=== PATIENT | male | born 1970 | race Two or more races ===

== ENCOUNTER 2024-06-12 19:26 | Emergency (ER) | payer SELFPAY ==
--- NOTE | 2024-06-12 19:46 | XR_ITS ---
Examination: Foot, right, 3 views Technique: AP, oblique, lateral views foot, 3 views Date and time of exam: June 12, 2024 1948 hrs. Indications: Twisting injury to foot today, foot pain Findings: Acute fracture proximal fifth metatarsal, no significant displacement Impression: Acute fracture proximal fifth metatarsal
--- NOTE | 2024-06-12 19:47 | PD.EDLOWEX ---
Lower Extremity Injury RME/HPI General Chief Complaint: Extremity Injury, Lower Stated Complaint: Twisted Left Foot Time Seen by Provider: 06/12/24 19:44 Arrival date/time: 06/12/24 19:26 RME / HPI RME / HPI Narrative: 53-year-old male patient was brought in for evaluation regarding left foot pain. Patient twisted his left foot while working, resulting to pain, described as dull ache, severity moderate. Location is mid foot. Patient is able to ambulate however he is limping. Denies any other complaints. Related Data Previous Rx's ?Medication ?Instructions ?Recorded ibuprofen 800 mg tablet 800 mg PO TID PRN pain #30 tabs 06/12/24 Allergies Allergy/AdvReac Type Severity Reaction Status Date / Time No Known Allergies Allergy Verified 11/10/20 23:15 Review of Systems Review of Systems Narrative Review of Systems: Review of system reviewed and within normal limits except mentioned in HPI ED Exam Narrative Physical exam: VITAL SIGNS: Reviewed. GENERAL APPEARANCE: Alert and interactive, follows commands, no acute distress, HEAD AND FACE: Non-traumatic. ENT: PERRL, pink conjunctivitis, eyelid no trauma, Mucous membrane moist. NECK: Supple, nontender, no nuchal rigidity. CHEST: No tenderness, no crepitus, no paradoxical movement, no retractions. LUNGS: Clear, well ventilated, symmetric, no rales, no wheezing, no ronchi, no stridor, good breath sounds bilaterally. HEART: Regular rate, regular rhythm, no murmur, no gallops. ABDOMEN: Soft, positive bowel sounds, nondistended, no guarding, nontender, no rebound, no masses, RECTAL: Deferred. GENITAL: Deferred. NEUROLOGICAL: Gross motor function intact sensory function intact, Appropriate for age. MUSCULOSKELETAL: low back nontender, full range of motion. EXTREMITIES: Left midfoot tenderness, mild swelling, no deformity no crepitus, full range of motion. SKIN: Color pink, dry, no rash, no lacerations, no abrasions, no contusions. LYMPHATICS: Deferred. Course Quality Measures none Orders Category Date Time Status XR foot comp LT min 3V Stat Exams 06/12/24 19:46 Completed Ibuprofen Tab [Motrin Tab] Med 06/12/24 19:46 Discontinued 800 mg PO X1 ONE Vital Signs Vital signs: Vital Signs Temperature 98.3 F 06/12/24 20:08 Pulse Rate 79 06/12/24 20:08 Respiratory Rate 18 06/12/24 20:08 Blood Pressure 150/90 H 06/12/24 20:08 Pulse Oximetry (%) 97 06/12/24 20:08 Oxygen Delivery Method Room Air 06/12/24 20:08 Extremity Injury, Lower MDM Narrative MDM Narrative:: 53-year-old male patient was brought in for evaluation regarding left foot pain. Patient twisted his left foot while working, resulting to pain, described as dull ache, severity moderate. Location is mid foot. Patient is able to ambulate however he is limping. Denies any other complaints. X-ray reports showed fifth metatarsal fracture nondisplaced Patient was placed on a short posterior leg splint. Distal neurovascular status in the post splinting. Patient data External records reviewed:: None Clinical information provided by:: patient Social determinants that could affect healthcare access:: none Patient has the following chronic illnesses:: None How is presenting disease/condition affected by chronic disease/condition?: exacerbated by Evaluation data The following diagnostics were reviewed and interpreted by me:: radiology exam(s) Lab and/or radiology exams considered but not ordered:: None Interpretation Summary: 5th metatarsal fracture Medications / Prescriptions Medications or Prescriptions considered but not ordered:: None Medication administrations:: Medication Administration History Discontinued Medications Ibuprofen (Ibuprofen Tab 400 Mg Tablet) 800 mg PO X1 ONE Stop: 06/12/24 19:47 Last Admin: 06/12/24 20:26 Dose: 800 mg Documented By: JOSEPH Be Consultations Consultation(s) initiated? (list below): No Diagnosis Extremity Injury, Lower Differential Diagnosis: fracture of toe and other (Fifth metatarsal fracture, foot sprain) Most likely diagnosis given after review of the tests above:: Fifth metatarsal fracture Admission Indicated Admission indicated?: not indicated Admission Request Was there a request for admission?: No Disposition Plan Disposition Plan: Discharge Discharge Attestation Discharge Attestation: The patient was given an opportunity to ask questions and understood the discharge instructions. Discharge instructions specifically effects, indications for sooner follow up or return to the emergency department, and the expected course of current diagnosis. Patient condition: Stable Discharge Plan Plan Patient Disposition: HOME (Self Care) Disposition Comment: stable Prescriptions/Referrals Prescriptions/Med Rec: New ibuprofen 800 mg tablet 800 mg PO TID PRN (Reason: pain) Qty: 30 0RF Referrals: Wander Cai MD [Primary Care Provider] - In 1 week Problem List Clinical Impression: Fracture of fifth metatarsal bone Patient/Caregiver Discharge Instructions Discharge Activity: activity as tolerated Education Materials: Fifth Metatarsal Fx Additional Instructions: Thank you for the opportunity for serving you today. You are stable for discharged . You are advised to: Follow-up with your PCP in 1 to 2 days and asked for referral to orthopedic surgeon Return to ED for worsening of symptoms Increase oral fluids Take medication as prescribed Do not remove your splint until seen by orthopedic surgeon Elevate your legs as needed Print Language: Bruneian Stand Alone Forms: Cherise Award Info., Patient Portal Info Letter PA/DIRECTOR PHYSICAL THERAPY Supervising Physician PA/DIRECTOR PHYSICAL THERAPY Supervising Physician: MD Roe
[2024-06-12 20:08] VITALS: BP 150/90; PULSE 79; RESP 18; TEMP 36.8; O2SAT 97
[2024-06-12] MEDS: IBUPROFEN TAB 400 MG TABLET 800 MG PO (20:26)
== END 2024-06-12 22:23 | disposition home or self-care (01) ==
PROVIDERS: Emergency Provider Emergency Medicine; PCP Family Medicine
DX: S92.352A Displaced fracture of fifth metatarsal bone, left foot, initial encounter for closed fracture (principal); X50.1XXA Overexertion from prolonged static or awkward postures, initial encounter
CPT/HCPCS: 73630; 99283; A9270

== ENCOUNTER 2024-07-27 19:11 | Emergency (ER) | payer BC, OTHER, SELFPAY ==
[2024-07-27 19:12] VITALS: BMI 37.6
[2024-07-27 20:09] VITALS: BP 163/78; PULSE 105; RESP 20; TEMP 37.1; O2SAT 95
--- NOTE | 2024-07-27 20:34 | XR_ITS ---
Examination: Duplex scan of the lower extremity, unilateral left Date and time of exam: July 27, 20242044 hours INDICATION: Onset left leg pain beginning 24 hours ago Technique: Duplex scan of the extremity veins using B-mode/grayscale imaging and Doppler spectral analysis and color flow Attention is directed to internal echogenicity, compression and augmentation involving these veins, color flow assessment, spectral analysis Findings: Major deep venous structures in the extremity demonstrate normal course and caliber. There is no evidence of deep vein thrombosis. Normal color flow and spectral analysis Impression: Negative for DVT..
[2024-07-27] MEDS: CYCLObenzaPRINE 5 MG TABLET PO (21:11)
[2024-07-27] MEDS: NAPROXEN 250 MG TABLET 500 MG PO (23:08)
--- NOTE | 2024-07-28 03:33 | EDNOTE_ITS ---
ED Back Injury Pain RME/HPI General Chief Complaint: Back Pain/Injury Stated Complaint: Left flank pain x 1 day Time Seen by Provider: 07/27/24 20:34 Arrival date/time: 07/27/24 19:11 54M with no significant PMH presents to ED with several days of L lower back pain that radiates down LLE. Patient denies fall/trauma, saddle paresthesia, bowel/bladder incontinence, dysuria/hematuria, and SOB. Limitations: no limitations Related Data Previous Rx's ?Medication ?Instructions ?Recorded ibuprofen 800 mg tablet 800 mg PO TID PRN pain #30 t abs 06/12/24 cyclobenzaprine 5 mg tablet 5 mg PO TID PRN muscle spa sm #30 07/27/24 tabs Allergies Allergy/AdvReac Type Severity Reaction Status Date / Time No Known Allergies Allergy Verified 11/10/20 23:15 Review of Systems Review of Systems Systems Reviewed: All systems reviewed, normal except as documented Constitutional Constitutional: Reports system reviewed and no additional complaints, except as documented, Denies fever(s) and Denies headache(s) ENT Ears, Nose, Mouth, and Throat: Denies disequilibrium and Denies headache(s) Cardiovascular Cardiovascular: Reports system reviewed and no additional complaints, except as documented, Denies chest pain and Denies dyspnea Respiratory Respiratory: Reports system reviewed and no additional complaints, except as documented, Denies cough and Denies dyspnea Gastrointestinal Gastrointestinal: Reports system reviewed and no additional complaints, except as documented, Denies abdominal pain, Denies nausea and Denies vomiting Musculoskeletal Musculoskeletal: Reports as per HPI, Reports back pain and Reports radiating pain into limb Neurologic Neurologic: Reports system reviewed and no additional complaints, except as documented, Denies confusion, Denies disequilibrium and Denies headache(s) Psychiatric Psychiatric: Denies confusion Past Medical History Social History SMOKING STATUS: Never smoker SUBSTANCE USE: does not use ED Exam General Limitations: Present no limitations General appearance: Present alert and in no apparent distress Head Head exam: Present atraumatic Eye Eye exam: Present normal appearance, PERRL and EOMI ENT ENT exam: Present normal exam, normal oropharynx and mucous membranes moist Neck Neck exam: Present normal inspection, full ROM and trachea midline Chest Chest inspection: Present normal inspection and symmetric chest wall rise Respiratory Respiratory exam: Present normal lung sounds bilaterally Cardiovascular Cardiovascular exam: Present regular rate, normal rhythm and normal heart sounds Abdominal Exam Abdominal exam: Present soft and normal bowel sounds Extremities Exam Extremities exam: Present normal inspection and full ROM Back Exam Back exam: Present normal inspection and full ROM Neurological Exam Neurological exam: Present alert, oriented X3 and CN II-XII intact Psychiatric Psychiatric exam: Present normal affect and normal mood Skin Skin exam: Present warm, dry, intact and normal color Course Quality Measures none Orders Category Date Time Status US venous doppler LE LT Stat Exams 07/27/24 20:34 Completed CYCLObenzaPRINE [Flexeril] Med 07/27/24 20:34 Discontinued 5 mg PO X1 ONE Naproxen [Naprosyn] Med 07/27/24 22:21 Discontinued 500 mg PO X1 ONE Vital Signs Vital signs: Vital Signs Temperature 98.7 F 07/27/24 20:09 Pulse Rate 105 H 07/27/24 20:09 Respiratory Rate 20 07/27/24 20:09 Blood Pressure 163/78 H 07/27/24 20:09 Pulse Oximetry (%) 95 07/27/24 20:09 Oxygen Delivery Method Room Air 07/27/24 20:09 O2 at 95% on RA and WNLs Back Pain / Injury MDM Narrative MDM Narrative:: 54M with no significant PMH presents to ED with several days of L lower back pain that radiates down LLE. Patient denies fall/trauma, saddle paresthesia, bowel/bladder incontinence, dysuria/hematuria, and SOB. Physical exam reveals no back tenderness. No gross LLE swelling. Patient is afebrile, calm, and alert. US no DVT. Likely sciatica. Muscle relaxer helped abit. Registered Nurses given. Patient data External records reviewed:: [facility] previous records Clinical information provided by:: patient Social determinants that could affect healthcare access:: none Patient has the following chronic illnesses:: none How is presenting disease/condition affected by chronic disease/condition?: no chronic disease Evaluation data The following diagnostics were reviewed and interpreted by me:: radiology exam(s) Lab and/or radiology exams considered but not ordered:: ordered Interpretation Summary: above Medications / Prescriptions Medications or Prescriptions considered but not ordered:: ordered Medication administrations:: Medication Administration History Discontinued Medications Cyclobenzaprine HCl (Cyclobenzaprine 5 Mg Tablet) 5 mg PO X1 ONE Stop: 07/27/24 20:35 Last Admin: 07/27/24 21:11 Dose: 5 mg Documented By: ENRRIQUE Naproxen (Naproxen 250 Mg Tablet) 500 mg PO X1 ONE Stop: 07/27/24 22:22 Last Admin: 07/27/24 23:08 Dose: 500 mg Documented By: ENRRIQUE above Consultations Consultation(s) initiated? (list below): No Diagnosis Differential diagnosis back pain/injury: lumbar radiculopathy, sciatica, strain of lumbar region, renal colic, pyelonephritis, thoracic back pain, AAA, discitis and other (DVT) Most likely diagnosis given after review of the tests above:: sciatica Admission Indicated Admission indicated?: not indicated Admission Request Was there a request for admission?: No Disposition Plan Disposition Plan: Discharge Discharge Attestation Discharge Attestation: The patient and all family members were given an opportunity to ask questions and understood the discharge instructions. Discharge instructions specifically effects, indications for sooner follow up or return to the emergency department, and the expected course of current diagnosis. Patient condition: Stable Discharge Plan Plan Patient Disposition: HOME (Self Care) Disposition Comment: Stable Prescriptions/Referrals Prescriptions/Med Rec: New cyclobenzaprine 5 mg tablet 5 mg PO TID PRN (Reason: muscle spasm) Qty: 30 0RF No Action ibuprofen 800 mg tablet 800 mg PO TID PRN (Reason: pain) Qty: 30 0RF Referrals: Wander Cai MD [Primary Care Provider] - In 1 week Problem List Clinical Impression: Sciatica Patient/Caregiver Discharge Instructions Education Materials: ED Sciatica Additional Instructions: Please follow-up with PCP within 24-48 hours and return immediately if symptoms worsen. If problem persists, recommend outpatient PT and/or MRI follow-up. In the meantime, rest, use ice/heat, and/or compression. NSAIDs tend to work better for this type of pain. Print Language: Paraguayan Stand Alone Forms: Patient Portal Info Letter WM/CELSO Supervising Physician WM/CELSO Supervising Physician: Dr. Perea
== END 2024-07-27 23:12 | disposition home or self-care (01) ==
PROVIDERS: Emergency Provider Emergency Medicine; PCP Family Medicine
DX: M54.42 Lumbago with sciatica, left side (principal)
CPT/HCPCS: 93971; 99284; A9270

== ENCOUNTER 2024-12-27 12:36 | Inpatient (IN) | payer OTHER, SELFPAY ==
--- NOTE | 2024-12-27 | XR_ITS ---
Examination: MRI brain without intravenous contrast. Date and time of exam: December 27, 2024, 1745 hrs. Indications: Dizziness weakness difficulty with gait beginning 2 days ago Technique: Multiple axial and sagittal images of the brain obtained. Siemens high-resolution 1.5 Stephanie short bore scanners utilized. Sagittal sections, T1-weighted, TR 500, TE 14, are performed. Axial sections proton-density and T2-weighted have been obtained. Inversion recovery axial images, TR 9, 260, TE 111, TI 2500. Diffusion weighted images, axial sections, TR 4800, TE 128, B value 1000 Axial sections, ADC map, TR 4800, TE 128 Findings: Enlargement of the sella turcica is not present. The optic chiasm and infundibular are not remarkable. Prepontine and interpeduncular cisterns are not enlarged. There is no localized enlargement of the medulla or angela. Fourth ventricle and cerebellar tonsils appear normal in position. No subacute area of hemorrhage density is seen. Mass in the cerebellopontine angle region is not evident. Globes symmetrical. Orbital musculature including medial lateral rectus muscles do not exhibit abnormality. Diffusion-weighted images demonstrate no focus of restricted diffusion. Increased white matter signal minimal Mass effect upon the ventricular system is not identified. Impression: Negative for acute hemorrhage mass effect or midline shift No acute infarct
[2024-12-27 12:54] VITALS: BP 122/89; PULSE 122; RESP 18; TEMP 36.9; O2SAT 93; BMI 28.7
--- NOTE | 2024-12-27 12:57 | EKG_ITS ---
[facility] Test Date: 2024-12-27 Pat Name: KEELY QUIÑONEZ Department: Room: - Gender: Male Clinical Business Analyst: : 1970 Requested By: Romain Moreno Order Number: [id number] Reading MD: Romain Moreno Measurements Intervals [place] Rate: 124 P: 6 IA: 156 QRS: -26 QRSD: 90 T: 31 QT: 330 QTc: 474 Interpretive Statements SINUS TACHYCARDIA LEFT VENTRICULAR HYPERTROPHY AND ST-T CHANGE [VOLTAGE CRITERIA PLUS ST/T ABNORMALITY] INFERIOR MYOCARDIAL INFARCTION , PROBABLY OLD [40+ ms Q WAVE AND/OR ST/T ABNORMALITY IN II/aVF] No previous ECG available for comparison /store/S0/[id number].pdf
--- NOTE | 2024-12-27 12:58 | XR_ITS ---
Examination: PA lateral chest 2 views TECHNIQUE: Upright PA lateral chest 2 views Date and time: December 27, 2024 1259 hours INDICATIONS: Weakness dizziness beginning 3 days ago. FINDINGS: Normal heart size. Lungs are clear. The osseous structures are intact IMPRESSION: No active disease.
--- NOTE | 2024-12-27 12:58 | PD.EDRME ---
Rapid Medical Screening Exam E Arrival date/time: 12/27/24 12:36 54-year-old male with no known medical history presents to the emergency room with a chief complaint of dizziness, lightheadedness, weakness x 2 days. Patient states he has been binge drinking alcohol for the last week stopped 4 days ago and since then has had the symptoms I have greeted and performed a focused initial assessment of this patient. A comprehensive ED assessment and evaluation of the patient, analysis of all test results, and completion of the medical decision making process will be conducted by additional ED providers. Chief Complaint: Weakness Time Seen by Provider: 12/27/24 12:52 Vital signs: Vital Signs Temperature 98.4 F 12/27/24 12:54 Pulse Rate 122 H 12/27/24 12:54 Respiratory Rate 18 12/27/24 12:54 Blood Pressure 122/89 H 12/27/24 12:54 Pulse Oximetry (%) 93 L 12/27/24 12:54 Oxygen Delivery Method Room Air 12/27/24 12:54 Vital signs reviewed by provider: Yes
[2024-12-27 13:29] LABS: Basophils # (Auto) 0.0 Thou/mm3 (0.0-0.2); Basophils % (Auto) 0 % (0-2.5); Eosinophils # (Auto) 0.0 Thou/mm3 (0.0-0.5); Eosinophils % (Auto) 0 % (0-10); Hematocrit 46.9 % (41.0-53.0); Hemoglobin 16.9 g/dL (13.5-16.0); Immature Granulocytes Auto 0.05 Thou/mm3 (0.00-0.00); Lymphocytes # (Auto) 1.0 Thou/mm3 (1.0-4.8); Lymphocytes % (Auto) 12 % (10-50); Mean Corpuscular HGB Conc 36.0 g/dl (31.0-37.0); Mean Corpuscular Hemoglobin 32.6 pg (25.0-35.0); Mean Corpuscular Volume 90 fL (80-100); Monocytes # (Auto) 0.7 Thou/mm3 (0.0-0.8); Monocytes % (Auto) 8 % (0-12); Neutrophils # (Auto) 6.5 Thou/mm3 (1.8-7.7); Neutrophils % (Auto) 78 % (37-80); Nucleated Red Blood Cell # 0.02 Thou/mm3 (0.00-0.00); Nucleated Red Blood Cell % 0 /100 WBC (0); Platelet Count 100 Thou/mm3 (140-440); RDW Standard Deviation 43.4 fL (35.1-43.9); Red Blood Count 5.19 Miln/mm3 (4.50-5.90); White Blood Count 8.3 Thou/mm3 (3.8-10.6)
[2024-12-27 13:48] LABS: B-Type Natriuretic Peptide 32 pg/mL (0-100)
[2024-12-27 13:51] LABS: Alanine Aminotransferase 142 U/L (10-49); Albumin, Serum 4.8 gm/dL (3.5-5.0); Albumin/Globulin Ratio 1.7 (1.2-2.2); Alcohol, Blood Medical < 3.0 mg/dL (0-10.0); Alkaline Phosphatase 130 U/L (46-116); Anion Gap 22 (7-16); Aspartate Amino Transferase 174 U/L (0-34); BUN/Creatinine Ratio 5 Ratio (12-20); Bilirubin,Total 1.9 mg/dL (0.3-1.2); Blood Urea Nitrogen 7 mg/dL (9-23); Calcium 10.8 mg/dL (8.3-10.6); Calcium (Corrected) 10.8 mg/dL (8.5-10.1); Carbon Dioxide 20.0 mMol/L (20.0-31.0); Chloride 90 mMol/L (98-107); Creatinine (Component) 1.4 mg/dL (0.6-1.3); Estimated Creatinine Clearance 66.7 mL/min (>60); Globulin 2.9 gm/dL (2.3-3.5); Glucose 160 mg/dL (74-106); Magnesium 1.8 mg/dL (1.6-2.6); Osmolality,Calculated 265 (275-295); Potassium 3.1 mMol/L (3.4-5.1); Sodium 132 mMol/L (136-145); Total Protein 7.7 gm/dL (5.7-8.2); Troponin I < 0.020 ng/mL (0.0-0.045); eGFR 59 See Note
[2024-12-27 14:45] LABS: INR 1.0 (0.9-1.3); Partial Thromboplastin Time 24.7 Seconds (22.0-36.0); Prothrombin Time 11.4 Seconds (9.0-12.2)
--- NOTE | 2024-12-27 14:46 | XR_ITS ---
Examination: CT brain head without contrast. 2-D sagittal coronal reconstructions Date and time of exam:December 27, 2024, 1501 hours INDICATIONS: Stroke alert, onset focal neurologic deficit today CTDI: vol (mGy):56.9 DLP: (mGycm):1180 Technique: Multiple CT axial sections of the brain have been obtained, 5 mm slice thickness. Contrast has not been administered. 2-D sagittal, coronal reconstructions have been obtained Low dose protocols were performed. One or more of the following dose reduction techniques were used; automated exposure control, adjustment of the mA and/or KV according to patient size, use of iterative reconstruction technique. Findings: No significant ventricular enlargement. Subtle low densities in the left cerebellar hemisphere axial image 34, which could represent early acute infarcts Intra-axial or extra-axial hemorrhage density is not seen. No mass effect or midline shift Basal cisterns are not remarkable. Fourth ventricle is midline. Cranial vault intact. Impression: Negative for acute hemorrhage, mass effect or midline shift Subtle low density areas in the left cerebellar hemisphere, axial image 34, which could represent early nonhemorrhagic infarcts, consider brain MRI MRA, stroke protocol, without contrast, follow-up
--- NOTE | 2024-12-27 14:46 | XR_ITS ---
Examination: CTA carotids with intravenous contrast CTA brain, head with intravenous contrast. 2-D sagittal, coronal reconstructions. 3-D reconstructions. Exam date and time: December 27, 2024, 1505 hours INDICATIONS: Stroke alert, onset focal neurologic deficit today CTDI: vol (mGy) 12.1 DLP: (mGycm) 537 Technique: Multiple CTA axial brain, head carotid images post intravenous contrast injection 75 cc, [id number]. 2-D sagittal, coronal reconstructions. 3-D reconstructions, 3-D post processing including vascular maximum intensity projection images. Low dose protocols were performed. One or more of the following dose reduction techniques were used; automated exposure control, adjustment of the mA and/or KV according to patient size, use of iterative reconstruction technique. Findings: No significant common carotid carotid bifurcation or internal carotid artery stenoses. Codominant vertebral arteries and neck with no critical stenoses. Intracranial vertebral arteries basilar artery posterior cerebral branches fill with no large vessel occlusions Juxtasellar supraclinoid portions internal carotid arteries, M1 segments middle cerebral arteries middle cerebral artery trifurcation vessels, anterior cerebral arteries fill with no large vessel occlusions IMPRESSION: No significant neck arterial stenoses No cerebral large vessel arterial occlusions or thrombus
--- NOTE | 2024-12-27 14:46 | XR_ITS ---
Examination: AP chest single view Technique one AP portable upright chest single view Date and time: December 27, 2024 1531 hours, comparison 12/27/2024 INDICATIONS: Stroke alert today. FINDINGS: Normal heart size. No aspiration pneumonia. Prominent osteopenia IMPRESSION: No aspiration pneumonia.
--- NOTE | 2024-12-27 14:46 | EKG_ITS ---
[facility] Test Date: 2024-12-27 Pat Name: KEELY QUIÑONEZ Department: Room: - Gender: Male Skating Carhop: : 1970 Requested By: Shannon Manzano Order Number: [id number] Reading MD: Shannon Manzano Measurements Intervals [place] Rate: 102 P: 20 ID: [id number] QRS: -15 QRSD: 94 T: 29 QT: 335 QTc: 437 Interpretive Statements SINUS TACHYCARDIA MODERATE ST DEPRESSION [0.05+ mV ST DEPRESSION] Compared to ECG 12/27/2024 12:57:33 Left ventricular hypertrophy no longer present Myocardial infarct finding no longer present ST (T wave) deviation still present /store/S0/[id number]/[id number]
--- NOTE | 2024-12-27 14:48 | PD.EDWEAK ---
ED Weakness RME/HPI General Chief complaint: Weakness Stated complaint: LIGHTHEADED/WEAK X2 DAYS, DIARRHEA X2 DAYS Time Seen by Provider: 12/27/24 12:52 Arrival date/time: 12/27/24 12:36 RME / HPI RME / HPI Narrative: 54-year-old male with no known medical history presents to the emergency room with a chief complaint of dizziness, lightheadedness, weakness x 2 days. Patient states he has been binge drinking alcohol for the last week stopped 4 days ago and since then has had the symptoms 2.47 PM 54-year-old male patient with significant history of chronic back pain currently taking on and off Percocet, was brought in by family for evaluation regarding dizziness, lightheadedness, and weakness. Patient is having symptoms of dizziness for the last 2 days however at 10:00 this morning patient is unable to ambulate due to severe dizziness, and leaning to the right side. Patient admits of having alcohol binge drinking, but stopped 4 days ago. On my initial evaluation, patient was noted to be unable to ambulate without assistance and tendency to lean to the right side with eyes closed. Patient denies any slurring of speech. Denies any head trauma or fall. Denies any fever denies any other complaints. Related Data Home Medications ?Medication ?Instructions ?Recorded ?Confirmed oxycodone-acetaminophen 10 mg-325 1 tab PO Q6H PRN pain 12/27/24 12/27/24 mg tablet Allergies Allergy/AdvReac Type Severity Reaction Status Date / Time No Known Allergies Allergy Verified 12/27/24 12:39 Review of Systems Review of Systems Narrative Review of Systems: Review of system reviewed and within normal limits except mentioned in HPI ED Exam Narrative Physical exam: VITAL SIGNS: Reviewed. GENERAL APPEARANCE: Alert and interactive, follows commands, no acute distress, HEAD AND FACE: Non-traumatic. ENT: PERRL, pink conjunctivitis, eyelid no trauma, Mucous membrane moist. NECK: Supple, nontender, no nuchal rigidity. CHEST: No tenderness, no crepitus, no paradoxical movement, no retractions. LUNGS: Clear, well ventilated, symmetric, no rales, no wheezing, no ronchi, no stridor, good breath sounds bilaterally. HEART: Regular rate, regular rhythm, no murmur, no gallops. ABDOMEN: Soft, positive bowel sounds, nondistended, no guarding, nontender, no rebound, no masses, RECTAL: Deferred. GENITAL: Deferred. NEUROLOGICAL: Gross motor function intact sensory function intact, Appropriate for age. MUSCULOSKELETAL: low back nontender, full range of motion. EXTREMITIES: Nontender, full range of motion. SKIN: Color pink, dry, no rash, no lacerations, no abrasions, no contusions. LYMPHATICS: Deferred. Course Quality Measures none Orders Category Date Time Status Bedside Blood Glucose NOW Care 12/27/24 14:46 Active Bedside COVID-19 Antigen Test NOW Care 12/27/24 16:44 Active COVID-19 Screening Questionnaire NOW Care 12/27/24 16:26 Active T[place]stone Polisher NOW Care 12/27/24 14:46 Active Continuous Pulse Oximetry NOW Care 12/27/24 14:46 Completed Decision to Admit X1 Care 12/27/24 16:26 Completed EKG (ED ONLY) *Do not use* NOW Care 12/27/24 12:57 Completed EKG (ED ONLY) *Do not use* NOW Care 12/27/24 14:46 Completed In and Out Catheter NEEDED Care 12/27/24 14:46 Active Insert IV NOW Care 12/27/24 14:46 Active NIH Stroke Scale now Care 12/27/24 14:46 Active NPO NOW Care 12/27/24 14:46 Active Nurse Swallow Screen x1 Care 12/27/24 14:46 Active Consult to Neurology / Tele-Neurology Routine Cons 12/27/24 14:[address] angio stroke protocol Stat Exams 12/27/24 14:[address] stroke protocol Stat Exams 12/27/24 14:46 Completed EKG (ED Only) Stat Exams 12/27/24 12:57 Draft EKG (ED Only) Stat Exams 12/27/24 14:46 Draft XR chest 1V portable Stat Exams 12/27/24 14:46 Completed XR chest 2V Stat Exams 12/27/24 12:58 Completed Alcohol, Blood Medical Stat Lab 12/27/24 13:20 Completed B-Type Natriuretic Peptide Stat Lab 12/27/24 13:20 Completed CBC Stat Lab 12/27/24 13:20 Completed Comprehensive Metabolic Panel Stat Lab 12/27/24 13:20 Completed Drug Screen,Urine Stat Lab 12/27/24 17:00 Completed Magnesium Stat Lab 12/27/24 13:20 Completed Partial Thromboplastin Time Stat Lab 12/27/24 13:20 Completed Prothrombin Time with INR Stat Lab 12/27/24 13:20 Completed Troponin I Stat Lab 12/27/24 13:20 Completed Urinalysis, C/S if Indicated Stat Lab 12/27/24 17:00 Completed Aspirin [Ecotrin] Med 12/27/24 15:22 Discontinued 81 mg PO X1 ONE Labetalol IV [Trandate IV] Med 12/27/24 14:46 Discontinued 10 mg IVP Q15M PRN Ondansetron Inj [Zofran Inj] Med 12/27/24 14:46 Active 4 mg IVP Q4HR PRN Potassium Chloride [K-Dur] Med 12/27/24 15:32 Discontinued 40 meq PO X1 ONE Oxygen Delivery NOW RT 12/27/24 14:46 Active Vital Signs Vital signs: Vital Signs Temperature 98.4 F 12/27/24 12:54 Pulse Rate 122 H 12/27/24 12:54 Respiratory Rate 18 12/27/24 12:54 Blood Pressure 122/89 H 12/27/24 12:54 Pulse Oximetry (%) 93 L 12/27/24 12:54 Oxygen Delivery Method Room Air 12/27/24 12:54 Weakness MDM Narrative MDM Narrative:: 2.47 PM 54-year-old male patient with significant history of chronic back pain currently taking on and off Percocet, was brought in by family for evaluation regarding dizziness, lightheadedness, and weakness. Patient is having symptoms of dizziness for the last 2 days however at 10:00 this morning patient is unable to ambulate due to severe dizziness, and leaning to the right side. Patient admits of having alcohol binge drinking, but stopped 4 days ago. On my initial evaluation, patient was noted to be unable to ambulate without assistance and tendency to lean to the right side with eyes closed. Patient denies any slurring of speech. Denies any head trauma or fall. Denies any fever denies any other complaints. Stroke alert was initiated at 2:47 PM. I spoke with teleneurologist, who told me that there is a small infarct noted on the left cerebellar hemisphere CTA head and neck came back unremarkable. Patient needs to be admitted for stroke workup recommendation aspirin 81 mg p.o. x 1 patient is not a candidate for thrombolytic therapy due to onset of symptoms more than 24 hours ago. Patient's LFTs and total bili was noted to be elevated due to alcohol abuse. Patient is not having any abdominal pain. Plan of care discussed with the patient who agrees to be admitted for further management. Spoke with hospitalist, who admitted the patient. Patient data External records reviewed:: None Clinical information provided by:: patient and family Social determinants that could affect healthcare access:: alcohol use Patient has the following chronic illnesses:: Alcohol abuse How is presenting disease/condition affected by chronic disease/condition?: exacerbated by Evaluation data The following diagnostics were reviewed and interpreted by me:: lab results, radiology exam(s) and EKG tracing(s) Lab and/or radiology exams considered but not ordered:: None Interpretation Summary: None Medications / Prescriptions Medications or Prescriptions considered but not ordered:: None Medication administrations:: Medication Administration History Acetaminophen (Acetaminophen 325 Mg Tablet) 650 mg PO Q6H PRN PRN Reason: Fever >101.5 Stop: 01/26/25 16:46 Acetaminophen (Acetaminophen 325 Mg Tablet) 650 mg PO Q6H PRN PRN Reason: PAIN SCALE 1-3 (mild Stop: 01/26/25 16:46 Atorvastatin Calcium (Atorvastatin Calcium 20 Mg Tablet) 40 mg PO HS [facility] Stop: 01/26/25 20:59 Last Admin: 12/27/24 21:06 Dose: 40 mg Documented By: IG Heparin Sodium (Porcine) (Heparin Sod Inj 5000 Unit/Ml Vial) 5,000 unit SC Q8HR [facility] Stop: 01/10/25 21:59 Last Admin: 12/27/24 21:06 Dose: 5,000 unit Documented By: IG Co-signed By: AM Lactated Ringer's (Lactated Ringers) 1,000 mls @ 75 mls/hr IV .[id number] [facility] Stop: 01/26/25 16:59 Last Admin: 12/27/24 17:16 Dose: 75 mls/hr Documented By: EF Labetalol HCl (Labetalol Inj 5 Mg/Ml Vial 20 Ml) 10 mg IVP Q15M PRN PRN Reason: HIGH BP Ondansetron HCl (Ondansetron Inj 2 Mg/Ml Inj 2 Ml) 4 mg IVP Q4HR PRN; Protocol PRN Reason: NAUSEA OR VOMITING Stop: 01/26/25 14:45 Discontinued Medications Aspirin (Aspirin Ec 81 Mg Tabec) 81 mg PO X1 ONE Stop: 12/27/24 15:23 Last Admin: 12/27/24 15:33 Dose: 81 mg Documented By: EF Atorvastatin Calcium (Atorvastatin Calcium 20 Mg Tablet) 80 mg PO HS [facility] Stop: 01/26/25 20:59 Labetalol HCl (Labetalol Inj 5 Mg/Ml Vial 20 Ml) 10 mg IVP Q15M PRN PRN Reason: HIGH BP Potassium Chloride (Potassium Chloride 20 Meq Tabcr) 40 meq PO X1 ONE Stop: 12/27/24 15:33 Last Admin: 12/27/24 15:43 Dose: 40 meq Documented By: EF Aspirin 81 mg p.o. Consultations Consultation(s) initiated? (list below): No Diagnosis Weakness Differential Diagnosis: anemia, dehydration and other Most likely diagnosis given after review of the tests above:: Strokelike symptoms Admission Indicated Admission indicated?: not indicated Admission Request Was there a request for admission?: Yes Admission Attestation Admission request attestation: Discussed case with Hospitalist service regarding admission. Discussed patients ED course, exam findings, labs, and radiology results. The Hospitalist [agrees, to accept the patient for admission. Disposition Plan Disposition Plan: Admit Discharge Plan Plan Patient Disposition: Admit Acute Care w/in Hospital Problem List Clinical Impression: Stroke-like symptom
--- NOTE | 2024-12-27 15:22 | PD.TNEURO ---
Tele Neuro Consultation Consultation Date 12/27/24 Most Recent Vital Signs Last Vital Signs Temp 98.4 F 12/27/24 12:54 Pulse 122 H 12/27/24 12:54 Resp 18 12/27/24 12:54 BP 122/89 H 12/27/24 12:54 Pulse Ox 93 L 12/27/24 12:54 O2 Del Method Room Air 12/27/24 12:54 Laboratory-Coagulation Panel PT 11.4 Seconds (9.0-12.2) 12/27/24 13:20 INR 1.0 (0.9-1.3) 12/27/24 13:20 APTT 24.7 Seconds (22.0-36.0) 12/27/24 13:20 Consultation Narrative [facility] Tele[facility] Consult [facility] Patient Name:???KEELY QUIÑONEZ Date of :???1970 Identification Number:??? Date of Service:???12/27/2024 14:49:42 Diagnosis:?I63.89 - Cerebrovascular accident (CVA) due to other mechanism ([facility]) Impression: ?54yo man w/PMH of back pain p/w dizziness, weakness on 12/27/24. He states he has had dizziness, unsteady gait and weakness for the last 2 days. He otherwise denies complaints or prior episodes. He is somewhat limited due to disorientation. NIHSS [address] Head shows a possible left cerebellar hypodensity. Pt is not a candidate for thrombolytics or thrombectomy due to being out of the 24 hour window. Presentation is concerning for acute-subacute ischemic stroke based on history and exam, MRI Brain advised. Other possibilities include infectious or metabolic encephalopathy. Plan listed below was recommended to the ED physician by phone. Our recommendations are outlined below. Recommendations: ? Stroke/Telemetry Floor ? Neuro Checks (Q4) ? Bedside Swallow Eval ? DVT Prophylaxis ? IV Fluids, Normal Saline ? Head of Bed 30 Degrees ? Euglycemia and Avoid Hyperthermia (PRN Acetaminophen) ? Initiate or continue Aspirin 81 MG daily ? Antihypertensives PRN if Blood pressure is greater than 220/120 or there is a concern for End organ damage/contraindications for permissive HTN. If blood pressure is greater than 220/120 give labetalol PO or IV or Vasotec IV with a goal of 15% reduction in BP during the first 24 hours. ?Routine MRI Brain without contrast to assess for stroke ?Routine CTA Head/Neck with contrast or MRA Head/Neck without contrast to assess vasculature ?TTE (if not recently done) ?Lipid Profile, A1C ?PT/OT, Speech/Swallow evaluation Sign Out: ? Discussed with Emergency Department Provider Advanced Imaging: Advanced Imaging Deferred because: Does not meet criteria due to being out of the 24-hour window for thrombectomy Metrics: Last Known Well: Unknown Dispatch Time: 12/27/2024 14:49:42 Arrival Time: 12/27/2024 12:36:00 Initial Response Time: 12/27/2024 14:52:31Symptoms: dizziness, weakness. Initial patient interaction: 12/27/2024 14:58:24 NIHSS Assessment Completed: 12/27/2024 15:06:04Patient is not a candidate for Thrombolytic. Thrombolytic Medical Decision: 12/27/2024 15:06:05Patient was not deemed candidate for Thrombolytic because of following reasons: LKW outside 4.[address] Head: I personally reviewed all the CT images that were available to me and it showed: left cerebellar hypodensity Primary Provider Notified of Diagnostic Impression and Management Plan on: 12/27/2024 15:21:15 History of Present Illness:Patient is a 54 year old Male. Patient was brought by private transportation with symptoms of dizziness, weakness. 54yo man w/PMH of back pain p/w dizziness, weakness on 12/27/24. He states he has had dizziness, unsteady gait and weakness for the last 2 days. He otherwise denies complaints or prior episodes. He is somewhat limited due to disorientation.. Past Medical History: Other PMH:? see hpi unable to obtain due to:?? Patient Is Confused Medications: No Anticoagulant use? No Antiplatelet use Reviewed EMR for current medications Allergies:? Reviewed Allergies Unable To Obtain Due To:?Patient Is Confused Social History: Unable To Obtain Due To Patient Status :?Patient Is Confused Family History: Family History Cannot Be Obtained Because:Patient Is Confused ROS :?ROS Cannot Be Obtained Because:? Patient Is Confused Past Surgical History: Past Surgical History Cannot Be Obtained Because: Patient Is Confused Examination: BP(122/67),?Pulse(112), 1A: Level of Consciousness - Alert; keenly responsive?+ 0 1B: Ask Month and Age - 1 Question Right?+ 1 1C: Blink Eyes & Squeeze Hands - Performs Both Tasks?+ 0 2: Test Horizontal Extraocular Movements - Normal?+ 0 3: Test Visual Schmidt - No Visual Loss?+ 0 4: Test Facial Palsy (Use Grimace if Obtunded) - Normal symmetry?+ 0 5A: Test Left Arm Motor Drift - No Drift for 10 Seconds?+ 0 5B: Test Right Arm Motor Drift - No Drift for 10 Seconds?+ 0 6A: Test Left Leg Motor Drift - No Drift for 5 Seconds?+ 0 6B: Test Right Leg Motor Drift - No Drift for 5 Seconds?+ 0 7: Test Limb Ataxia (FNF/Heel-Raymundo) - No Ataxia?+ 0 8: Test Sensation - Normal; No sensory loss?+ 0 9: Test Language/Aphasia - Normal; No aphasia?+ 0 10: Test Dysarthria - Normal?+ 0 11: Test Extinction/Inattention - No abnormality?+ 0 NIHSS Score:?1 Pre-Morbid Modified Javon Scale: 0 Points = No symptoms at all Spoke with :?ED This consult was conducted in real time using interactive audio and video technology. Patient was informed of the technology being used for this visit and agreed to proceed. Patient located in hospital and provider located at home/office setting. Patient is being evaluated for possible acute neurologic impairment and high probability of imminent or life-threatening deterioration. I spent total of 35 minutes providing care to this patient, including time for face to face visit via telemedicine, review of medical records, imaging studies and discussion of findings with providers, the patient and/or family. Dr Oscar Jj [facility] For Inpatient follow-up with [facility] physician please call [facility] at . As we are not an outpatient service for any post hospital discharge needs please contact the hospital for assistance. If you have any questions for the [facility] physicians or need to reconsult for clinical or diagnostic changes please contact us via [facility] at . Signature :Christina Jj
[2024-12-27 15:26] VITALS: PULSE 101; PULSE 102; RESP 18; O2SAT 95
[2024-12-27 15:29] VITALS: BP 124/89; PULSE 100; RESP 18; TEMP 36.8; O2SAT 98
[2024-12-27] MEDS: ASPIRIN EC 81 MG TABEC PO (15:33)
--- NOTE | 2024-12-27 16:49 | ECHO_ITS ---
Transthoracic Echo Report Ht (in): 70 Wt (lb): 200 Exam Location: Echo Lab Status: Emergency Consulting Intern: Rosa Sauceda Indications: Procedure Performed: BP: 119 / 90 HR: 98 Technical Quality: Technically difficult study MEASUREMENTS (Male / Female) Normal Values 2D ECHO LV Ejection Fraction MOD BP 39.0 % >= 55 % LV Cardiac Index MOD BP 2055.0 cm?/min?m? LV Ejection Fraction MOD 4C 38.8 % LV Cardiac Index MOD 4C 2027.5 cm?/min?m? LV Ejection Fraction 4C AL 39.4 % LV Cardiac Index 4C AL 2169.6 cm?/min?m? LV Ejection Fraction MOD 2C 35.6 % LV Cardiac Index MOD 2C 1766.0 cm?/min?m? LV Ejection Fraction 2C AL 34.2 % LV Cardiac Index 2C AL 1756.5 cm?/min?m? LA Volume Index 15.0 cm?/m? 16 - 28 cm?/m? M-MODE Aortic Root Diameter MM 3.6 cm LA Systolic Diameter MM 3.7 cm LA Ao Ratio MM 1.0 AV Cusp Separation MM 2.0 cm DOPPLER AV Peak Velocity 115.5 cm/s AV Peak Gradient 5.3 mmHg AV Mean Gradient 3.0 mmHg AV Velocity Time Integral 16.4 cm AI Peak Velocity 201.0 cm/s AI Peak Gradient 16.2 mmHg AI Pressure Half Time 605.0 ms LVOT Peak Velocity 102.5 cm/s LVOT Peak Gradient 4.2 mmHg LVOT Velocity Time Integral 14.2 cm MV Area PHT 6.1 cm? Mitral E Point Velocity 88.8 cm/s LV E' Lateral Velocity 8.8 cm/s Mitral E to LV E' Lateral Ratio 10.1 LV E' Septal Velocity 9.0 cm/s Mitral E to LV E' Septal Ratio 9.8 PV Peak Velocity 73.3 cm/s PV Peak Gradient 2.1 mmHg FINDINGS Left Ventricle Normal left ventricular size, wall thickness. Global left ventricular systolic function is mildly decreased. Unable to evaluate diastolic function. The ejection fraction is visually estimated at 40-45 %. Right Ventricle The right ventricle not well visualized. The right ventricular systolic function is normal. Left Atrium The left atrium is normal by two-dimensional, color flow and Doppler imaging with no structural abnormalities, no thrombus formation present. Right Atrium The right atrium is normal by two-dimensional imaging, color flow and Doppler imaging with no structural abnormalities, no thrombus formation present. Atrial Septum The interatrial septum appears normal with no evidence of a shunt. Aorta The aorta is normal by two-dimensional, color flow and Doppler interrogation. Mitral Valve The mitral valve is normal by two-dimensional, color flow and Doppler interrogation. There is no significant mitral valve regurgitation, stenosis or prolapse. Aortic Valve The aortic valve is trileaflet and normal by two-dimensional, color flow and Doppler interrogation. Mild aortic valve regurgitation. Tricuspid Valve The tricuspid valve is normal by two-dimensional, color flow and Doppler interrogation. There is trace tricuspid valve regurgitation. Pulmonic Valve The pulmonic valve is not well visualized. Trivial pulmonic valve regurgitation. Vessels Inferior vena cava not well visualized. Pericardium The pericardium is normal by two-dimensional imaging. There is no significant pericardial effusion. CONCLUSIONS Indication: CVA with bubble study. Suboptimal bubble study Normal LV size, wall thickness. Global left ventricular systolic function is mildly decreased. Unable to evaluate diastolic function. Estimated EF at 40-45 %. The RV not well visualized. The RV systolic function is normal. Trace TR. Trivial PI. IVC not well visualized. Jignesh Chambers (Electronically Signed) Final Date: 28 December 2024 11:05
--- NOTE | 2024-12-27 17:00 | PD.HHHP ---
Documentation for date of: 12/27/24 HPI - Hospitalist History of Present Illness History of present illness: Patient is a 54-year-old male with a medical history of chronic lower back pain on as needed Alexander and muscle relaxant, alcohol use, and obesity presents to [facility] emergency department on 12/27/2024 with chief complaint of dizziness and weakness. He reports he has had dizziness and unsteady gait which has worsened over the last 48 hours prompting him to come to the emergency room. He denies any difficulty speaking, no facial weakness or loss of sensation. He denies a previous history of similar symptoms. He denies changes in dizziness with head movements but does seem worse from sitting to rising position. He reports he does not take any medicines at home except for pain medicines for chronic back pain. He denies taking any aspirin or NSAIDs at home. He denies any recent falls. Patient lives in [place] with family. Patient works in the [employer] system but has been on leave secondary to work related injury. He denies a history of diabetes. Patient denies headache, vision changes, chest pain, shortness of breath, nausea/vomiting, abdominal pain, urinary symptoms, and no GI symptoms at this time. Social History: Denies tobacco use and illicit substances. Drinks 1 pint of vodka a day ( last drink 12/27/24) Surgical history: Denies any previous surgeries Family history: Noncontributory ED Course: Presenting vital signs: Afebrile, pulse 122, O2 sat 93% on room air, Pertinent laboratories: WBC 16.9, coagulation panel WNL, NA 132, K3.1, BUN 7, CR 1.4, GLU 160, AG 22, corrected calcium 10.8, AST 174, ALT 142, ALP 130, troponin within normal limits Head CT wo: Settable low-density areas in the left cerebral hemisphere, negative for acute hemorrhage, mass effect or midline shift. H & N CTA: No LVO or thrombus. Management: NIHSS Score of 1. Patient was seen by teleneurology who recommends admission for CVA rule out. Patient was given aspirin 81 mg p.o. x 1 and potassium chloride 40 mEq p.o. x 1. Hospitalist team consulted for admission. Review of Systems Review of Systems Systems Reviewed: All systems reviewed, normal except as documented Past Medical History Social History SMOKING STATUS: Never smoker SUBSTANCE USE: does not use Meds Home Medications and Allergies Home Medications ?Medication ?Instructions ?Recorded ?Confirmed ?Type oxycodone-acetaminophen 10 mg-325 1 tab PO Q6H PRN pain 12/27/24 12/27/24 History mg tablet Allergies Allergy/AdvReac Type Severity Reaction Status Date / Time No Known Allergies Allergy Verified 12/27/24 12:39 Exam Vital Signs Temp Pulse Resp BP Pulse Ox O2 Del Method 98.3 F 100 18 124/89 H 98 Room Air 12/27/24 15:29 12/27/24 15:29 12/27/24 15:29 12/27/24 15:29 12/27/24 15:29 12/27/24 15:29 Narrative Gen: A&O NAD HEENT: NCAT, EOMI, not icteric. External ears normal. No rhinorrhea. Moist mucous membranes. Neck: Supple, full range of motion, no observable masses, No meningeal sign. Lungs: No Respiratory distress. CV: RRR, Normal S1/S2, no edema. Abdomen: Soft, nondistended, No rebound tenderness. MSK: No joint swelling, no redness. Skin: No rashes, petechiae, lesions. Normal color per patient. Neuro: Normal Gait, Grossly intact. CN II-XII grossly intact Psych: Appropriate for situation. Results - Hospitalist Labs Diagrams: 12/27/24 13:20 12/27/24 13:20 Labs: Short CBC 12/27/24 Range/Units 13:20 WBC 8.3 (3.8-10.6) Thou/mm3 Hgb 16.9 H (13.5-16.0) g/dL Hct 46.9 (41.0-53.0) % Plt Count 100 L (140-440) Thou/mm3 BMP 12/27/24 13:20 Sodium 132 L Potassium 3.1 L Chloride 90 L Carbon Dioxide 20.0 BUN 7 L Creatinine 1.4 H Glucose 160 H Calcium 10.8 H Cardiac Enzymes 12/27/24 Range/Units 13:20 Troponin I < 0.020 (0.0-0.045) ng/mL Liver Function 12/27/24 Range/Units 13:20 Total Bilirubin 1.9 H (0.3-1.2) mg/dL AST 174 H (0-34) U/L ALT 142 H (10-49) U/L Alkaline Phosphatase 130 H (46-116) U/L Albumin 4.8 (3.5-5.0) gm/dL Assessment & Plan -Hospitalist Additional Assessment Patient is a 54-year-old male with a medical history of chronic lower back pain on as needed Alexander and muscle relaxant, alcohol use, and obesity presents to [facility] emergency department on 12/27/2024 with chief complaint of dizziness and weakness. Patient admitted for CVA rule out. #Dizziness #Stroke-like symptoms #CVA Rule Out - Presented with chief complaints of dizziness and weakness - Not a candidate for thrombolytics given length of symptoms - Admit to telemetry - Neurochecks every 4 hours - Swallow screen and physical therapy referral - DVT prophylaxis with heparin 5000 units subcutaneous every 8 hours - Head of the bed 30 degrees - Tylenol as needed to avoid hyperthermia - Consult in-house neurology, recommendations appreciated - Vascular risk factor screening: A1c, TSH, lipid panel, follow-up test to control vascular risk factors - Order echocardiogram with bubble study - Allow permissive hypertension with blood pressure up to 220/120 for the first 24 hours. Plan: CTA head and neck did not reveal any LVO or thrombus. Head CT without contrast revealed no acute hemorrhage, mass effect or midline shift but did show subtle low-density areas in the left cerebral hemisphere. Will start patient on aspirin 81 mg p.o. daily and atorvastatin 40 mg p.o. at bedtime. Consult in-house neurology, recommendations appreciated. Order MRI brain. # Transaminitis - On admission AST 174, ALT 142, ALP 130 - Most likely secondary to alcohol use - Plan: Avoid hepatotoxic agents and hepatically dose medications. Counseled patient on alcohol cessation. Continue to trend LFTs daily. # Alcohol use disorder - Patient has significant history of alcohol use - Plan: He reports his last drink was today 12/27/24. He denies being hospitalized for alcohol with drawl in the past. Low threshold to start CIWA if patient develops symptoms # Elevated anion gap - Plan: No history of diabetes and no acidosis noted on chemistry panel. Most likely elevated from alcoholic ketoacidosis. Continue fluids and repeat levels in AM. # Chronic back pain - Plan: Secondary to injury at work. He takes as needed Alexander once a week at home. Monitor for now. DVT prophylaxis; heparin Diet: Cardiac CODE STATUS: Full code Dispo: Admit to the hospital for MRI brain and stroke rule out Dr. Anisha MD Quality Measures Quality Measures VTE prophylaxis
[2024-12-27 17:10] LABS: Collection Type, Urine Clean Catch
[2024-12-27] MEDS: RINGERS LACTATED 1000 ML 1,000 ML 75 ML IV (17:16)
[2024-12-27 17:20] LABS: Bilirubin,Urine Negative (Negative); Blood,Urine Negative (Negative); Clarity,Urine Clear (Clear/Hazy); Color,Urine Lt-Yellow (Lt Yel-Yel); Culture Indicated,Urine Not Indicated; Glucose, Urine Negative (Negative); Ketones,Urine 1+ (Negative); Leukocyte Esterase,Urine Negative (Negative); Nitrite,Urine Negative (Negative); PH,Urine 6.5 (5.0-7.0); Protein,Urine Trace (Neg - Trace); RBC,Urine 3 /hpf (0-3); Specific Gravity,Urine 1.037 (1.001-1.035); Squamous Epithelial Cell,Urine < 1 /hpf (0-5); Urobilinogen,Urine Negative mg/dL (0.0-1.0); WBC,Urine 2 /hpf (0-5)
[2024-12-27 17:25] LABS: Amphetamine/Methamp Scrn,U Negative (Negative); Barbiturate Screen,Urine Negative (Negative); Benzodiazepines Screen,Urine Negative (Negative); Benzoylecgonine Screen, Ur Negative (Negative); Fentanyl Screen,Urine Negative (Negative); Opiate Screen,Urine Negative (Negative); THC Screen,Urine Negative (Negative)
--- NOTE | 2024-12-27 17:33 | PC.CC ---
Patient is a 54 year-old male who presents to the hospital for lightheaded/weak x2 days, diarrhea x2 days. LOADER HELPERDelma made awdk-[id number] contact with patient introduced self, role, and reason for visit. Patient appeared alert and oriented to self, location, and situation. At bedside was patient's sister, Machelle Garcia whom patient provided verbal consent to remain in the room during assessment. LOADER HELPER, discussed limits of confidentiality. Patient made appropriate eye contact and engaged in initial assessment. ? Patient confirmed his address on demographics and reports to living with his parents. Patient reports that in the event he is unable to make his own medical decision his medical decision maker is his sister Machelle Garcia. Patient confirmed he is employed with [employer]. Patient reports he is able to ambulate independently and complete his own ADLs. Patient reports he does not require any DME. Patient's primary provider is Alan Torre and his pharmacy of choice for prescription medications is [facility]. Upon discharge the patient plans to return back home. sales representative facility services to follow up with any discharge needs.
[2024-12-27 18:59] VITALS: BP 119/90; PULSE 98; RESP 18; TEMP 36.1; O2SAT 95
[2024-12-27 19:56] VITALS: BP 107/86; PULSE 101; RESP 19; TEMP 36.1; O2SAT 94
[2024-12-27 20:00] VITALS: BP 107/86; PULSE 100; PULSE 101; RESP 19; TEMP 36.1; O2SAT 94
[2024-12-27] MEDS: HEPARIN SOD INJ 5000 UNIT/ML VIAL SC (21:06)
[2024-12-27] MEDS: ATORVASTATIN CALCIUM 20 MG TABLET 40 MG PO (21:06)
--- NOTE | 2024-12-27 22:45 | ESPR_ITS ---
Documentation for date of: 12/27/24 Subjective Subjective Interval history: Patient was seen in telemetry today. Still complains of dizziness, no headache nausea or visual disturbances. He denies any weakness in the upper or lower extremities. Exam - Neurology Vital Signs Temp Pulse Resp BP Pulse Ox O2 Del Method 96.9 F 101 H 19 107/86 H 94 L Room Air 12/27/24 20:00 12/27/24 20:00 12/27/24 20:00 12/27/24 20:00 12/27/24 20:00 12/27/24 20:00 Narrative Exam GENERAL APPEARANCE: Well-developed, obese built male in no acute distress. HEENT: Normocephalic, atraumatic, extraocular movements intact. Pupils: Equal reacting to light and accommodation NECK: Supple, no JVD or bruits. CARDIOVASULAR: Heart: S1, S2 heard, regular without S3-S4 or murmur no rubs or gallops. LUNGS/CHEST: Clear to auscultation bilaterally. No rails, rhonchi, or wheezing. Normal inspection. ABDOMEN: Soft, nontender, with normal bowel sounds. No pulsatile masses. No rebound, rigidity, or guarding. Normal inspection and palpation. EXTREMITIES: Normal inspection and palpation. No edema, clubbing or cyanosis. SKIN: Warm and dry without rashes. Normal inspection. MUSCULOSKELETAL: No cervical, thoracic, lumbar or midline bony tenderness. Normal inspection. NEURO: Alert, awake and oriented x3. Cranial nerves: II through XII grossly intact. No nystagmus noted. Speech and language: Normal with no dysarthria or dysphasia. Motor system: Tone and bulk: Normal: Strength: 5 out of 5 in all 4 extremities; No pronator drift noted. Deep tendon reflexes: 2+ bilaterally symmetrical. Plantar reflex: Downgoing bilaterally. Sensory system: Intact to all modalities of sensation bilaterally. Coordination: Intact to [id number] and jlth-bfgf-upeu test bilaterally. No ataxia, no dysmetria, or dysdiadochokinesia noted. No intention tremors noted. Gait: Normal. Toe, heel, tandem walk all are normal. Romberg: Negative. No signs of meningeal irritation noted. PSYCHIATRIC: Normal mood and affect. Objective Labs 12/29/24 04:35 12/28/24 12:23 Labs: Laboratory Results - last 24 hr 12/27/24 12/27/24 13:20 17:00 WBC 8.3 RBC 5.19 Hgb 16.9 H Hct 46.9 MCV 90 MCH 32.6 MCHC 36.0 RDW Std Deviation 43.4 Plt Count 100 L Neut % (Auto) 78 Lymph % (Auto) 12 Frederick % (Auto) 8 Eos % (Auto) 0 Baso % (Auto) 0 Neut # (Auto) 6.5 Lymph # (Auto) 1.0 Frederick # (Auto) 0.7 Eos # (Auto) 0.0 Baso # (Auto) 0.0 Immature Gran # (Auto) 0.05 H Absolute Nucleated RBC 0.02 H Immature Gran % 1 H Nucleated RBC % 0 PT 11.4 INR 1.0 APTT 24.7 Sodium 132 L Potassium 3.1 L Chloride 90 L Carbon Dioxide 20.0 Anion Gap 22 H BUN 7 L Creatinine 1.4 H Estim Creat Clear Calc 66.7 eGFR 59 L BUN/Creatinine Ratio 5 L Glucose 160 H Calculated Osmolality 265 L Calcium 10.8 H Corrected Calcium 10.8 H Magnesium 1.8 Total Bilirubin 1.9 H AST 174 H ALT 142 H Alkaline Phosphatase 130 H Troponin I < 0.020 B-Natriuretic Peptide 32 Total Protein 7.7 Albumin 4.8 Globulin 2.9 Albumin/Globulin Ratio 1.7 Ur Collection Type Clean Catch Urine Color Lt-Yellow Urine Clarity Clear Urine pH 6.5 Ur Specific Jackson 1.037 H Urine Protein Trace Urine Glucose (UA) Negative Urine Ketones 1+ A Urine Blood Negative Urine Nitrite Negative Urine Bilirubin Negative Urine Urobilinogen (Auto) Negative Ur Leukocyte Esterase Negative Urine RBC 3 Urine WBC 2 Ur Squamous Epith Cells < 1 Urine Bacteria None Ur Culture Indicated? Not Indicated Urine Opiates Screen Negative Urine Fentanyl Screen Negative Ur Barbiturates Screen Negative U Amphetamin/Meth Scrn Negative U Benzodiazepines Scrn Negative U Cocaine Metab Screen Negative U Marijuana (THC) Screen Negative Ethyl Alcohol < 3.0 Assessment & Plan Assessment and plan (1) Stroke-like symptom: Status: Acute Assessment and plan: Differential diagnosis: Benign paroxysmal positional vertigo/ brainstem TIA/vertebrobasilar insufficiency Follow-up with MRI brain Also noted elevated liver enzymes and low platelet count. Not sure if he has primary liver pathology. Will hold off on antiplatelet agent unless the MRI brain showed infarction. Lower the statin dose until the liver enzymes go down CT head showed questionable hypodensity in the cerebellar hemisphere, likely over read. (2) Obesity: Status: Chronic Assessment and plan: Suggested that he gets tested for sleep apnea and use CPAP nightly if he has not been doing it. Advised lifestyle changes with diet and exercise
[2024-12-28] VITALS: BP 119/88; PULSE 105; PULSE 108; RESP 18; TEMP 36.1; O2SAT 95
[2024-12-28 03:11] VITALS: BMI 28.7
[2024-12-28 04:00] VITALS: BP 111/87; PULSE 103; PULSE 105; RESP 18; TEMP 36.4; O2SAT 94
[2024-12-28 05:48] LABS: Basophils # (Auto) 0.0 Thou/mm3 (0.0-0.2); Basophils % (Auto) 0 % (0-2.5); Eosinophils # (Auto) 0.0 Thou/mm3 (0.0-0.5); Eosinophils % (Auto) 0 % (0-10); Hemoglobin 15.5 g/dL (13.5-16.0); Lymphocytes # (Auto) 1.0 Thou/mm3 (1.0-4.8); Monocytes # (Auto) 1.0 Thou/mm3 (0.0-0.8); Monocytes % (Auto) 12 % (0-12); Neutrophils # (Auto) 6.2 Thou/mm3 (1.8-7.7); Nucleated Red Blood Cell # 0.00 Thou/mm3 (0.00-0.00); Nucleated Red Blood Cell % 0 /100 WBC (0)
[2024-12-28] MEDS: HEPARIN SOD INJ 5000 UNIT/ML VIAL SC ×2 (05:48→20:17)
[2024-12-28 05:49] LABS: Hematocrit 43.1 % (41.0-53.0); Immature Granulocytes Auto 0.05 Thou/mm3 (0.00-0.00); Lymphocytes % (Auto) 12 % (10-50); Mean Corpuscular HGB Conc 36.0 g/dl (31.0-37.0); Mean Corpuscular Hemoglobin 32.8 pg (25.0-35.0); Mean Corpuscular Volume 91 fL (80-100); Neutrophils % (Auto) 75 % (37-80); Platelet Count 82 Thou/mm3 (140-440); RDW Standard Deviation 44.9 fL (35.1-43.9); Red Blood Count 4.73 Miln/mm3 (4.50-5.90); White Blood Count 8.2 Thou/mm3 (3.8-10.6)
[2024-12-28 06:24] LABS: Alanine Aminotransferase 111 U/L (10-49); Albumin, Serum 4.2 gm/dL (3.5-5.0); Albumin/Globulin Ratio 1.7 (1.2-2.2); Alkaline Phosphatase 109 U/L (46-116); Anion Gap 20 (7-16); Aspartate Amino Transferase 124 U/L (0-34); BUN/Creatinine Ratio 8 Ratio (12-20); Bilirubin,Total 1.3 mg/dL (0.3-1.2); Blood Urea Nitrogen 8 mg/dL (9-23); Calcium 10.3 mg/dL (8.3-10.6); Calcium (Corrected) 10.3 mg/dL (8.5-10.1); Carbon Dioxide 24.5 mMol/L (20.0-31.0); Cardiac Risk Estimate 2.4 RATIO (4.0-6.7); Chloride 91 mMol/L (98-107); Cholesterol 207 mg/dL (132-200); Creatinine (Component) 1.0 mg/dL (0.6-1.3); Estimated Creatinine Clearance 93.4 mL/min (>60); Globulin 2.5 gm/dL (2.3-3.5); Glucose 95 mg/dL (74-106); Glucose Estimated Average 105 mg/dL (80-131); HDL Cholesterol 85 mg/dL (40-60); Hemoglobin A1C 5.3 % Hgb (4.8-6.0); LDL Cholesterol,Calculated 111 mg/dL (0-130); Magnesium 2.0 mg/dL (1.6-2.6); Osmolality,Calculated 268 (275-295); Potassium 3.0 mMol/L (3.4-5.1); Sodium 135 mMol/L (136-145); Thyroid Stimulating Hormone 1.37 uIU/mL (0.55-4.78); Total Protein 6.7 gm/dL (5.7-8.2); Triglycerides 56 mg/dL (30-150); eGFR > 60 See Note
--- NOTE | 2024-12-28 07:56 | ESPR_ITS ---
<Statement entered by Kellie Tanner MD - 12/28/24 14:47> Patient seen and examined at bedside. No acute overnight events reported. Patient noted to have dizziness that is worse when he starts walking. MRI ruled out stroke however CT head revealed a left hypodensity in the left cerebellum that was not mentioned on MRI. Ordered EKG which shows tachycardia. Will also give patient meclizine 25 mg p.o. patient's dizziness tolerates. Pending further neuro recommendations. I discussed with and supervised the manager internal physician who took care of this patient. I personally saw and examined the patient and discussed the assessment and plan with the entire medicine team, including my attending Dr. Lancaster, I agree with most of the assessment and plan as documented below Kellie Tanner M.D. PGY-3 Disclaimer: Despite multiple revisions, due to the dictation software being used, the document bellow may not be free of grammatical errors including phonetic/typographic errors. However, this does not deter from our commitment to providing health care in the patient's best interest in mind. Documentation for date of: 12/28/24 Subjective Subjective Interval history: Patient is a 54-year-old male with a medical history of chronic lower back pain on as needed Anacortes and muscle relaxant, alcohol use, and obesity presents to [facility] emergency department on 12/27/2024 with chief complaint of dizziness and weakness. He reports he has had dizziness and unsteady gait which has worsened over the last 48 hours prompting him to come to the emergency room. He denies any difficulty speaking, no facial weakness or loss of sensation. He denies a previous history of similar symptoms. He denies changes in dizziness with head movements but does seem worse from sitting to rising position. He reports he does not take any medicines at home except for pain medicines for chronic back pain. He denies taking any aspirin or NSAIDs at home. He denies any recent falls. Patient lives in [place] with family. Patient works in the [employer] system but has been on leave secondary to work related injury. He denies a history of diabetes. Patient denies headache, vision changes, chest pain, shortness of breath, nausea/vomiting, abdominal pain, urinary symptoms, and no GI symptoms at this time. 12/28/2024: patient seen and examined at bedside pt appears slightly withdrawn/ depressed mood. Patient states that he may be withdrawing although he states that his last drink was 5 days ago. On admission UTOX and urine alcohol was negative. Stroke was ruled out on CT head and MRI and CTA head and neck, although they did note a left hypointensity the left cerebellum, no cervical spine solid exam normal ibechl-euam-[id number] normal pfvu-[id number]-ubwa. Started patient on thiamine and multivitamin and alcohol history patient had reported dizziness given 25 of meclizine on exam was slightly tachycardic EKG showed sinus tach. Exam Vital Signs Temp Pulse Resp BP Pulse Ox O2 Del Method 97.5 F 105 H 18 111/87 H 94 L Room Air 12/28/24 04:00 12/28/24 04:00 12/28/24 04:00 12/28/24 04:00 12/28/24 04:00 12/28/24 04:00 Narrative Exam Gen: A&O NAD HEENT: NCAT, EOMI, not icteric. External ears normal. No rhinorrhea. Moist mucous membranes. Neck: Supple, full range of motion, no observable masses, No meningeal sign. Lungs: No Respiratory distress. CV: sinus tachycardia , Normal S1/S2, no edema. Abdomen: Soft, nondistended, No rebound tenderness. MSK: No joint swelling, no redness. Skin: No rashes, petechiae, lesions. Normal color per patient. Neuro: Gait not assessed. nl finger nose finger, nl heel knee kelly. CN II-XII grossly intact. BUE action tremor. Psych: Appropriate for situation. slightly depressed mood Objective Labs 12/29/24 04:35 12/29/24 04:35 Labs: Laboratory Results - last 24 hr 12/27/24 12/27/24 12/28/24 13:20 17:00 04:24 WBC 8.3 8.2 RBC 5.19 4.73 Hgb 16.9 H 15.5 Hct 46.9 43.1 MCV 90 91 MCH 32.6 32.8 MCHC 36.0 36.0 RDW Std Deviation 43.4 44.9 H Plt Count 100 L 82 L Neut % (Auto) 78 75 Lymph % (Auto) 12 12 Isabella % (Auto) 8 12 Eos % (Auto) 0 0 Baso % (Auto) 0 0 Neut # (Auto) 6.5 6.2 Lymph # (Auto) 1.0 1.0 Isabella # (Auto) 0.7 1.0 H Eos # (Auto) 0.0 0.0 Baso # (Auto) 0.0 0.0 Immature Gran # (Auto) 0.05 H 0.05 H Absolute Nucleated RBC 0.02 H 0.00 Immature Gran % 1 H 1 H Nucleated RBC % 0 0 PT 11.4 INR 1.0 APTT 24.7 Sodium 132 L 135 L Potassium 3.1 L 3.0 L Chloride 90 L 91 L Carbon Dioxide 20.0 24.5 Anion Gap 22 H 20 H BUN 7 L 8 L Creatinine 1.4 H 1.0 Estim Creat Clear Calc 66.7 93.4 eGFR 59 L > 60 BUN/Creatinine Ratio 5 L 8 L Glucose [address] Glu mg/dL 105 Hemoglobin A1c 5.3 Calculated Osmolality 265 L 268 L Calcium 10.8 H 10.3 Corrected Calcium 10.8 H 10.3 H Magnesium 1.8 2.0 Total Bilirubin 1.9 H 1.3 H D AST 174 H 124 H ALT 142 H 111 H Alkaline Phosphatase 130 H 109 D Troponin I < 0.020 B-Natriuretic Peptide 32 Total Protein 7.7 6.7 Albumin 4.8 4.2 D Globulin 2.9 2.5 Albumin/Globulin Ratio 1.7 1.7 Triglycerides 56 Cholesterol 207 H LDL Cholesterol, Calc 111 HDL Cholesterol 85 H Cholesterol/HDL Ratio 2.4 L TSH 1.37 Ur Collection Type Clean Catch Urine Color Lt-Yellow Urine Clarity Clear Urine pH 6.5 Ur Specific [place] 1.037 H Urine Protein Trace Urine Glucose (UA) Negative Urine Ketones 1+ A Urine Blood Negative Urine Nitrite Negative Urine Bilirubin Negative Urine Urobilinogen (Auto) Negative Ur Leukocyte Esterase Negative Urine RBC 3 Urine WBC 2 Ur Squamous Epith Cells < 1 Urine Bacteria None Ur Culture Indicated? Not Indicated Urine Opiates Screen Negative Urine Fentanyl Screen Negative Ur Barbiturates Screen Negative U Amphetamin/Meth Scrn Negative U Benzodiazepines Scrn Negative U Cocaine Metab Screen Negative U Marijuana (THC) Screen Negative Ethyl Alcohol < 3.0 Quality Measures Quality Measures VTE prophylaxis and stroke Suspected type of Stroke: Non Acute Tenecteplase given: Reason(s) Tenecteplase not given: Outside the time window not given Rehab services: PT evaluation ordered and Speech Language Pathology eval ordered VTE Prophylaxis: pharmaceutical Antithrombotic by day 2:: not indicated (describe) Statin ordered: <75 y/o high intensity dose Anticoagulation ordered for A-fib or flutter (current or hx): not indicated Assessment & Plan Assessment Current Active Medications: Generic Name Dose Route Start Last Admin Trade Name Freq PRN Reason Stop Dose Admin Acetaminophen 650 mg 12/27/24 16:47 Acetaminophen 325 Mg Tablet PO 01/26/25 16:46 Q6H PRN Fever >101.5 Acetaminophen 650 mg 12/27/24 16:47 Acetaminophen 325 Mg Tablet PO 01/26/25 16:46 Q6H PRN PAIN SCALE 1-3 (mild Atorvastatin Calcium 40 mg 12/27/24 21:00 12/27/24 21:06 Atorvastatin Calcium 20 Mg Tablet PO 01/26/25 20:59 40 mg HS RICK Administration Heparin Sodium (Porcine) 5,000 unit 12/27/24 22:00 12/28/24 05:48 Heparin Sod Inj 5000 Unit/Ml Vial SC 01/10/25 21:59 5,000 unit Q8HR RICK Administration Sodium Chloride 1,000 mls @ 80 mls/hr 12/28/24 07:53 Ns IV 01/27/25 07:52 .[id number] RICK Labetalol HCl 10 mg 12/27/24 16:59 Labetalol Inj 5 Mg/Ml Vial 20 Ml IVP Q15M PRN HIGH BP Ondansetron HCl 4 mg 12/27/24 14:46 Ondansetron Inj 2 Mg/Ml Inj 2 Ml IVP 01/26/25 14:45 Q4HR PRN NAUSEA OR VOMITING Protocol Plan Patient is a 54-year-old male with a medical history of chronic lower back pain on as needed Anacortes and muscle relaxant, alcohol use, and obesity presents to [facility] emergency department on 12/27/2024 with chief complaint of dizziness and weakness. Patient admitted for CVA, ruled out, pending echo, started on vitamins in setting of chronic severe etoh use. #Dizziness #Stroke-like symptoms #CVA RULED OUT - Presented with chief complaints of dizziness and weakness - Not a candidate for thrombolytics given length of symptoms - Admit to telemetry - Neurochecks every 4 hours - Swallow screen and physical therapy referral - DVT prophylaxis with heparin 5000 units subcutaneous every 12 hours - Head of the bed 30 degrees - Tylenol as needed to avoid hyperthermia - Consult in-house neurology, recommendations appreciated - Vascular risk factor screening: A1c, TSH, lipid panel, follow-up test to control vascular risk factors - pending echocardiogram with bubble study - Allow permissive hypertension with blood pressure up to 220/120 for the first 24 hours. Plan: CTA head and neck did not reveal any LVO or thrombus. Head CT without contrast revealed no acute hemorrhage, mass effect or midline shift but did show subtle low-density areas in the left cerebral hemisphere. MRI head negative. - atorvastatin 40 mg p.o. at bedtime. (ascvd 3.9%) - Consult in-house neurology, recommendations appreciated. - given meclizine 25 x1 for dizziness - encouraged to ambulate with assistance. (evaluated by PT) # Alcohol use disorder - Patient has significant history of alcohol use, Urine etoh negative - Plan: He reports his last drink was 5 days prior to admission, He denies being hospitalized for alcohol with drawl in the past. - start thiamine qd - start multivitamine qd - Low threshold to start CIWA if patient develops symptoms # Transaminitis - On admission AST 174, ALT 142, ALP 130 - Most likely secondary to alcohol use - Plan: Avoid hepatotoxic agents and hepatically dose medications. Counseled patient on alcohol cessation. Continue to trend LFTs daily. # Elevated anion gap - Plan: No history of diabetes and no acidosis noted on chemistry panel. Most likely elevated from alcoholic ketoacidosis. Continue fluids and repeat levels in AM. - anion gap is downtrending. # Chronic back pain - Plan: Secondary to injury at work. He takes as needed Anacortes once a week at home. Monitor for now. DVT prophylaxis; heparin Diet: Cardiac CODE STATUS: Full code Dispo: Admit to the hospital for MRI brain and stroke ruled out, possible etoh withdrawl, sinus tachycardia, given fluids. Plan discussed with Dr. Weldon, Dr Tanner, and Dr. Anisha Pritchett MD PGY1 Attending Provider Attestation/Addendum I have examined the patient, reviewed labs and imaging findings, discussed the case with the resident(s), and reviewed entered orders. I agree with the plan of care as outlined in this note, with these additional summaries/recommendations: Patient is a 54-year-old male with a medical history of chronic lower back pain on as needed Anacortes and muscle relaxant, alcohol use, and obesity presents to [facility] emergency department on 12/27/2024 with chief complaint of dizziness and weakness. Patient admitted for CVA rule out. Patient seen at bedside. No acute overnight events. Patient seen laying comfortably in bed. He has no dizziness at rest currently but reports he had moderate dizziness while working with physical therapy today. Patient completed MRI brain which was negative for acute CVA. Possible etiologies for dizziness are vestibular dysfunction/BPPV. Start meclizine. If no improvement patient may need to be seen by ENT for Jami-Hallpike. low suspicion for TIA since patient is still intermittently having symptoms although appreciate recommendations from neurology. Will follow-up with neurology in regards to DAPT. Continue statin. LDL 111. Patient currently denies any withdrawal symptoms. He does have a significant history of alcohol use and we will monitor for withdrawal symptoms. Low threshold to start CIWA. Transaminitis present secondary to chronic alcohol use. Patient was counseled on alcohol cessation. He currently denies abdominal symptoms. Hepatically dosed medications and avoid hepatotoxic agents. Elevated anion gap present which is most likely secondary to alcoholic ketoacidosis. Anion gap is improving and continue fluids and avoid alcohol. Patient updated on the plan and in agreement. All questions answered to satisfaction. Please see residents note for additional details and management. Dr. Anisha MD
[2024-12-28 08:00] VITALS: BP 125/92; PULSE 109; PULSE 110; RESP 19; TEMP 36.1; O2SAT 93
[2024-12-28] MEDS: SODIUM CHLORIDE 0.9% 1000 ML 1,000 ML 80 ML IV (09:40)
[2024-12-28] MEDS: MECLIZINE HCL 25 MG TABLET PO (11:11)
--- NOTE | 2024-12-28 11:42 | EKG_ITS ---
[facility] Test Date: 2024-12-28 Pat Name: KEELY QUIÑONEZ [facility] Yarn Rewinder: YAMILKA : 1970 Requested By: Alexia Weldon Order Number: [id number] Reading MD: Alexia Weldon Measurements Intervals [place] Rate: 101 P: -5 [place]: 148 QRS: -19 QRSD: 96 T: 11 QT: 339 QTc: 440 Interpretive Statements SINUS TACHYCARDIA ABNORMAL RHYTHM ECG Compared to ECG 12/27/2024 15:25:38 ST (T wave) deviation no longer present /store/S0/[id number]/ecg/[id number]
[2024-12-28 12:00] VITALS: BP 118/82; PULSE 105; PULSE 97; RESP 20; TEMP 36.1; O2SAT 95
[2024-12-28] MEDS: THIAMINE 100 MG TABLET PO (13:01)
[2024-12-28] MEDS: MULTIVITAMINS TABLET 1 TAB PO (13:01)
[2024-12-28 13:08] LABS: Anion Gap 14 (7-16); Calcium 10.3 mg/dL (8.3-10.6); Carbon Dioxide 26.8 mMol/L (20.0-31.0); Chloride 92 mMol/L (98-107); Potassium 3.0 mMol/L (3.4-5.1); Sodium 133 mMol/L (136-145)
[2024-12-28 13:14] LABS: Albumin, Serum 4.0 gm/dL (3.5-5.0); BUN/Creatinine Ratio 9 Ratio (12-20); Blood Urea Nitrogen 9 mg/dL (9-23); Calcium (Corrected) 10.3 mg/dL (8.5-10.1); Creatinine (Component) 1.0 mg/dL (0.6-1.3); Estimated Creatinine Clearance 93.4 mL/min (>60); Glucose 105 mg/dL (74-106); Osmolality,Calculated 265 (275-295); Phosphorous 3.1 mg/dL (2.4-5.1); eGFR > 60 See Note
[2024-12-28 16:00] VITALS: BP 115/85; PULSE 106; RESP 20; TEMP 36.1; O2SAT 96
[2024-12-28] MEDS: SIMETHICONE 80 MG CHEW PO (19:43)
[2024-12-28 20:00] VITALS: BP 115/93; PULSE 102; RESP 20; TEMP 36.4; O2SAT 92
[2024-12-28] MEDS: ATORVASTATIN CALCIUM 20 MG TABLET 40 MG PO (20:17)
[2024-12-28] MEDS: SODIUM CHLORIDE 0.9% 1000 ML 1,000 ML 100 ML IV (23:16)
--- NOTE | 2024-12-28 23:50 | ESPR_ITS ---
Documentation for date of: 12/28/24 Subjective Subjective Interval history: Patient was seen in telemetry today. Still complains of dizziness, no headache nausea or visual disturbances. He denies any weakness in the upper or lower extremities. Exam - Neurology Vital Signs Temp Pulse Resp BP Pulse Ox O2 Del Method 97.6 F 102 H 20 115/93 H 92 L Room Air 12/28/24 20:00 12/28/24 20:00 12/28/24 20:00 12/28/24 20:00 12/28/24 20:00 12/28/24 20:00 Narrative Exam GENERAL APPEARANCE: Well-developed, obese built male in no acute distress. HEENT: Normocephalic, atraumatic, extraocular movements intact. Pupils: Equal reacting to light and accommodation NECK: Supple, no JVD or bruits. CARDIOVASULAR: Heart: S1, S2 heard, regular without S3-S4 or murmur no rubs or gallops. LUNGS/CHEST: Clear to auscultation bilaterally. No rails, rhonchi, or wheezing. Normal inspection. ABDOMEN: Soft, nontender, with normal bowel sounds. No pulsatile masses. No rebound, rigidity, or guarding. Normal inspection and palpation. EXTREMITIES: Normal inspection and palpation. No edema, clubbing or cyanosis. SKIN: Warm and dry without rashes. Normal inspection. MUSCULOSKELETAL: No cervical, thoracic, lumbar or midline bony tenderness. Normal inspection. NEURO: Alert, awake and oriented x3. Cranial nerves: II through XII grossly intact. No nystagmus noted. Speech and language: Normal with no dysarthria or dysphasia. Motor system: Tone and bulk: Normal: Strength: 5 out of 5 in all 4 extremities; No pronator drift noted. Deep tendon reflexes: 2+ bilaterally symmetrical. Plantar reflex: Downgoing bilaterally. Sensory system: Intact to all modalities of sensation bilaterally. Coordination: Intact to bidbhp-druz-wrboe and pemt-mfgz-ahvs test bilaterally. No ataxia, no dysmetria, or dysdiadochokinesia noted. No intention tremors noted. Gait: Normal. Toe, heel, tandem walk all are normal. Romberg: Negative. No signs of meningeal irritation noted. PSYCHIATRIC: Normal mood and affect. Objective Labs 12/29/24 04:35 12/29/24 04:35 Labs: Laboratory Results - last 24 hr 12/28/24 12/28/24 04:24 12:23 WBC 8.2 RBC 4.73 Hgb 15.5 Hct 43.1 MCV 91 MCH 32.8 MCHC 36.0 RDW Std Deviation 44.9 H Plt Count 82 L Neut % (Auto) 75 Lymph % (Auto) 12 [place] % (Auto) 12 Eos % (Auto) 0 Baso % (Auto) 0 Neut # (Auto) 6.2 Lymph # (Auto) 1.0 [place] # (Auto) 1.0 H Eos # (Auto) 0.0 Baso # (Auto) 0.0 Immature Gran # (Auto) 0.05 H Absolute Nucleated RBC 0.00 Immature Gran % 1 H Nucleated RBC % 0 Sodium 135 L 133 L Potassium 3.0 L 3.0 L Chloride 91 L 92 L Carbon Dioxide 24.5 26.8 Anion Gap 20 H 14 BUN 8 L 9 Creatinine 1.0 1.0 Estim Creat Clear Calc 93.4 93.4 eGFR > 60 > 60 BUN/Creatinine Ratio 8 L 9 L Glucose [address] Glu mg/dL 105 Hemoglobin A1c 5.3 Calculated Osmolality 268 L 265 L Calcium 10.3 10.3 Corrected Calcium 10.3 H 10.3 H Phosphorus 3.1 Magnesium 2.0 Total Bilirubin 1.3 H D AST 124 H ALT 111 H Alkaline Phosphatase 109 D Total Protein 6.7 Albumin 4.2 D 4.0 Globulin 2.5 Albumin/Globulin Ratio 1.7 Triglycerides 56 Cholesterol 207 H LDL Cholesterol, Calc 111 HDL Cholesterol 85 H Cholesterol/HDL Ratio 2.4 L TSH 1.37 Assessment & Plan Assessment and plan (1) Stroke-like symptom: Status: Acute Assessment and plan: Differential diagnosis: Benign paroxysmal positional vertigo/ brainstem TIA/vertebrobasilar insufficiency Reassurance given to the patient regarding the negative MRI brain for acute infarction, CT showing hypodensity in the cerebellar hemisphere is likely over read. Also noted elevated liver enzymes and low platelet count. Not sure if he has primary liver pathology. Will hold off on heparin and antiplatelet agent as the platelet count is low. Lower the statin dose until the liver enzymes go down. Replace the potassium as indicated. Hypokalemia could be contributing to the weakness but not dizziness. Will check the B12 and vitamin D level. Consider outpatient physical therapy for balancing exercises if it persist. (2) Obesity: Status: Chronic Assessment and plan: Suggested that he gets tested for sleep apnea and use CPAP nightly if he has not been doing it. Advised lifestyle changes with diet and exercise
[2024-12-29] VITALS (10 sets, daily range): BP systolic 110–142; BP diastolic 86–102; PULSE 74–105; RESP 18–97; TEMP 35.9–36.5; O2SAT 92–96; BMI 33.0
[2024-12-29 06:06] LABS: Basophils # (Auto) 0.0 Thou/mm3 (0.0-0.2); Basophils % (Auto) 1 % (0-2.5); Eosinophils # (Auto) 0.0 Thou/mm3 (0.0-0.5); Eosinophils % (Auto) 1 % (0-10); Hematocrit 38.8 % (41.0-53.0); Hemoglobin 13.5 g/dL (13.5-16.0); Immature Granulocytes Auto 0.03 Thou/mm3 (0.00-0.00); Lymphocytes # (Auto) 1.2 Thou/mm3 (1.0-4.8); Lymphocytes % (Auto) 18 % (10-50); Mean Corpuscular HGB Conc 34.8 g/dl (31.0-37.0); Mean Corpuscular Hemoglobin 32.1 pg (25.0-35.0); Mean Corpuscular Volume 92 fL (80-100); Monocytes # (Auto) 1.0 Thou/mm3 (0.0-0.8); Monocytes % (Auto) 15 % (0-12); Neutrophils # (Auto) 4.6 Thou/mm3 (1.8-7.7); Neutrophils % (Auto) 66 % (37-80); Nucleated Red Blood Cell # 0.00 Thou/mm3 (0.00-0.00); Nucleated Red Blood Cell % 0 /100 WBC (0); Platelet Count 98 Thou/mm3 (140-440); RDW Standard Deviation 45.1 fL (35.1-43.9); Red Blood Count 4.20 Miln/mm3 (4.50-5.90); White Blood Count 6.9 Thou/mm3 (3.8-10.6)
[2024-12-29 07:12] LABS: Alanine Aminotransferase 80 U/L (10-49); Albumin, Serum 3.7 gm/dL (3.5-5.0); Albumin/Globulin Ratio 1.5 (1.2-2.2); Alkaline Phosphatase 94 U/L (46-116); Anion Gap 13 (7-16); Aspartate Amino Transferase 84 U/L (0-34); BUN/Creatinine Ratio 10 Ratio (12-20); Bilirubin,Total 1.1 mg/dL (0.3-1.2); Blood Urea Nitrogen 8 mg/dL (9-23); Calcium 9.6 mg/dL (8.3-10.6); Calcium (Corrected) 9.8 mg/dL (8.5-10.1); Carbon Dioxide 26.2 mMol/L (20.0-31.0); Chloride 95 mMol/L (98-107); Creatinine (Component) 0.8 mg/dL (0.6-1.3); Estimated Creatinine Clearance 124.8 mL/min (>60); Globulin 2.4 gm/dL (2.3-3.5); Glucose 87 mg/dL (74-106); Magnesium 1.8 mg/dL (1.6-2.6); Osmolality,Calculated 265 (275-295); Phosphorous 2.9 mg/dL (2.4-5.1); Sodium 134 mMol/L (136-145); Total Protein 6.1 gm/dL (5.7-8.2); eGFR > 60 See Note
[2024-12-29 07:15] LABS: Potassium 2.6 mMol/L (3.4-5.1)
--- NOTE | 2024-12-29 07:55 | ESPR_ITS ---
Documentation for date of: 12/29/24 Subjective Subjective Interval history: Patient is a 54-year-old male with a medical history of chronic lower back pain on as needed Dennison and muscle relaxant, alcohol use, and obesity presents to [facility] emergency department on 12/27/2024 with chief complaint of dizziness and weakness. He reports he has had dizziness and unsteady gait which has worsened over the last 48 hours prompting him to come to the emergency room. He denies any difficulty speaking, no facial weakness or loss of sensation. He denies a previous history of similar symptoms. He denies changes in dizziness with head movements but does seem worse from sitting to rising position. He reports he does not take any medicines at home except for pain medicines for chronic back pain. He denies taking any aspirin or NSAIDs at home. He denies any recent falls. Patient lives in [place] with family. 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 He denies a history of diabetes. Patient denies headache, vision changes, chest pain, shortness of breath, nausea/vomiting, abdominal pain, urinary symptoms, and no GI symptoms at this time. 12/28/2024: patient seen and examined at bedside pt appears slightly withdrawn/ depressed mood. Patient states that he may be withdrawing although he states that his last drink was 5 days ago. On admission UTOX and urine alcohol was negative. Stroke was ruled out on CT head and MRI and CTA head and neck, although they did note a left hypointensity the left cerebellum, no cervical spine solid exam normal ikoibo-zqms-xzlihj normal sutd-jovr-jjbr. Started patient on thiamine and multivitamin and alcohol history patient had reported dizziness given 25 of meclizine on exam was slightly tachycardic EKG showed sinus tach. 12/29/2024: Patient seen and examined at bedside patient continues to appear slightly withdrawn and anxious he reports that he is concerned about what could be going with him given his persistent dizziness. Unclear whether patient dizziness improved with meclizine given. Dr. Masterson can perform Jami-Hallpike with no notable nystagmus. However suspect BPPV. Echocardiogram demonstrated heart failure with reduced ejection fraction of 40 to 45%, given patient would likely benefit from GDMT patient was started on Coreg 3.125 twice daily. His potassium today was 2.9 he was given 40 ME in the morning and repeated afternoon renal panel with K of 3.0 given additional 20 ME, pending updated PT note. Exam Vital Signs Temp Pulse Resp BP Pulse Ox O2 Del Method 97.0 F 102 H 18 120/88 H 93 L Room Air 12/29/24 04:00 12/29/24 04:00 12/29/24 04:00 12/29/24 04:00 12/29/24 04:00 12/29/24 04:00 Narrative Exam Gen: A&O NAD HEENT: NCAT, EOMI, not icteric. External ears normal. No rhinorrhea. Moist mucous membranes. Neck: Supple, full range of motion, no observable masses, No meningeal sign. Lungs: No Respiratory distress. CV: sinus tachycardia , Normal S1/S2, no edema. Abdomen: Soft, nondistended, No rebound tenderness. MSK: No joint swelling, no redness. Skin: No rashes, petechiae, lesions. Normal color per patient. Neuro: Gait not assessed. nl finger nose finger, nl heel knee kelly. CN II-XII grossly intact. Psych: Appropriate for situation. slightly depressed and axious mood. Objective Labs 12/30/24 04:44 12/30/24 04:44 Labs: Laboratory Results - last 24 hr 12/28/24 12/29/24 12:23 04:35 WBC 6.9 RBC 4.20 L Hgb 13.5 D Hct 38.8 L MCV 92 MCH 32.1 MCHC 34.8 RDW Std Deviation 45.1 H Plt Count 98 L Neut % (Auto) 66 Lymph % (Auto) 18 [place] % (Auto) 15 H Eos % (Auto) 1 Baso % (Auto) 1 Neut # (Auto) 4.6 Lymph # (Auto) 1.2 [place] # (Auto) 1.0 H Eos # (Auto) 0.0 Baso # (Auto) 0.0 Immature Gran # (Auto) 0.03 H Absolute Nucleated RBC 0.00 Immature Gran % 0 Nucleated RBC % 0 Sodium 133 L 134 L Potassium 3.0 L 2.6 L* Chloride 92 L 95 L Carbon Dioxide 26.8 26.2 Anion Gap 14 13 BUN 9 8 L Creatinine 1.0 0.8 Estim Creat Clear Calc 93.4 124.8 eGFR > 60 > 60 BUN/Creatinine Ratio 9 L 10 L Glucose 105 87 Calculated Osmolality 265 L 265 L Calcium 10.3 9.6 Corrected Calcium 10.3 H 9.8 Phosphorus 3.1 2.9 Magnesium 1.8 Total Bilirubin 1.1 AST 84 H ALT 80 H Alkaline Phosphatase 94 Total Protein 6.1 Albumin 4.0 3.7 Globulin 2.4 Albumin/Globulin Ratio 1.5 Quality Measures Quality Measures VTE prophylaxis and stroke Suspected type of Stroke: Non Acute Tenecteplase given: Reason(s) Tenecteplase not given: Outside the time window not given Rehab services: PT evaluation ordered and Speech Language Pathology eval ordered VTE Prophylaxis: pharmaceutical Antithrombotic by day 2:: not indicated (describe) Statin ordered: <75 y/o high intensity dose Anticoagulation ordered for A-fib or flutter (current or hx): not indicated Assessment & Plan Assessment Current Active Medications: Generic Name Dose Route Start Last Admin Trade Name Freq PRN Reason Stop Dose Admin Acetaminophen 650 mg 12/27/24 16:47 Acetaminophen 325 Mg Tablet PO 01/26/25 16:46 Q6H PRN Fever >101.5 Acetaminophen 650 mg 12/27/24 16:47 Acetaminophen 325 Mg Tablet PO 01/26/25 16:46 Q6H PRN PAIN SCALE 1-3 (mild Atorvastatin Calcium 40 mg 12/27/24 21:00 12/28/24 20:17 Atorvastatin Calcium 20 Mg Tablet PO 01/26/25 20:59 40 mg HS RICK Administration Heparin Sodium (Porcine) 5,000 unit 12/28/24 21:00 12/28/24 20:17 Heparin Sod Inj 5000 Unit/Ml Vial SC 01/11/25 20:59 5,000 unit Q12HR RICK Administration Protocol Sodium Chloride 1,000 mls @ 100 mls/hr 12/28/24 12:25 12/28/24 23:16 Ns IV 01/27/25 12:24 100 mls/hr .Q10H RICK Administration Magnesium Sulfate 4 gm in 50 mls @ 12.5 mls/hr 12/29/24 07:55 Magnesium Sulfate Ivpb IV 12/29/24 11:54 X1 ONE Labetalol HCl 10 mg 12/27/24 16:59 Labetalol Inj 5 Mg/Ml Vial 20 Ml IVP Q15M PRN HIGH BP Multivitamins 1 tab 12/28/24 12:30 12/28/24 13:01 Multivitamins Tablet PO 01/27/25 12:29 1 tab QDAY RICK Administration Ondansetron HCl 4 mg 12/27/24 14:46 Ondansetron Inj 2 Mg/Ml Inj 2 Ml IVP 01/26/25 14:45 Q4HR PRN NAUSEA OR VOMITING Protocol Potassium Chloride 40 meq 12/29/24 07:53 Potassium Chloride 20 Meq Tabcr PO 12/29/24 07:54 X1 ONE Simethicone 80 mg 12/28/24 19:24 Simethicone 80 Mg Chew PO 01/27/25 19:23 QID PRN GAS Thiamine HCl 100 mg 12/28/24 12:30 12/28/24 13:01 Thiamine 100 Mg Tablet PO 01/27/25 12:29 100 mg QDAY RICK Administration Plan Patient is a 54-year-old male with a medical history of chronic lower back pain on as needed Dennison and muscle relaxant, alcohol use, and obesity presents to [facility] emergency department on 12/27/2024 with chief complaint of dizziness and weakness. Patient admitted for CVA, ruled out, echo with 40-45% EF, started on GDMT, suspect BPPV as source of dizziness that persists. #Dizziness 2/2 #suspect BPPV #CVA RULED OUT - Presented with chief complaints of dizziness and weakness - Consult in-house neurology, recommendations appreciated B12 and Vit D 25: pending - jami hallpike without nystagmus on exam, no hearing loss or changes, describes as positional, orthostatics negative, suspect BPPV - Vascular risk factor screening: A1c, TSH, lipid panel, follow-up test to control vascular risk factors - echocardiogram: EF 40-45% Plan: - atorvastatin 40 mg p.o. at bedtime. (ascvd 3.9%) - Consult in-house neurology, recommendations appreciated. - given meclizine 25 TID PRN - encouraged to ambulate with assistance. (evaluated by PT) - start on GDMT: Coreg 3.125 BID #intractable hypokalemia (2.9 --> 3) given 40 ME in the AM and 20 ME in the PM. -daily cmp -replete as indicated #constipation Lactulose 30 mg x2 senna 1 tab x1 # Alcohol use disorder #anxiety - Patient has significant history of alcohol use, Urine etoh negative - Plan: He reports his last drink was 5 days prior to admission, He denies being hospitalized for alcohol with drawl in the past. - start thiamine qd - start multivitamine qd - Low threshold to start CIWA if patient develops symptoms # Transaminitis- improving - On admission AST 174, ALT 142, ALP 130 - Most likely secondary to alcohol use - Plan: Avoid hepatotoxic agents and hepatically dose medications. Counseled patient on alcohol cessation. Continue to trend LFTs daily. # Elevated anion gap- resolved - Plan: No history of diabetes and no acidosis noted on chemistry panel. Most likely elevated from alcoholic ketoacidosis. Continue fluids and repeat levels in AM. # Chronic back pain - Plan: Secondary to injury at work. He takes as needed Dennison once a week at home. Monitor for now. DVT prophylaxis; heparin Diet: Cardiac CODE STATUS: Full code Dispo: Admit to the hospital for MRI brain and stroke ruled out, possible etoh withdrawl, gait instability, pending full PT Eval with ambulation. Plan discussed with Dr. Anisha Pritchett MD PGY1 Attending Provider Attestation/Addendum I have examined the patient, reviewed labs and imaging findings, discussed the case with the resident(s), and reviewed entered orders. I agree with the plan of care as outlined in this note, with these additional summaries/recommendations: Patient is a 54-year-old male with a medical history of chronic lower back pain on as needed Dennison and muscle relaxant, alcohol use, and obesity presents to [facility] emergency department on 12/27/2024 with chief complaint of dizziness and weakness. Patient admitted for CVA rule out. Patient seen at bedside. No acute overnight events. Patient continues to endorse intermittent dizziness which appear provoked by changes in position. Patient was unable to fully work with physical therapy yesterday given significant dizziness and had to return to bed. Patient will be reassessed by PT. Patient completed MRI brain which was negative for acute CVA. Possible etiologies for dizziness are vestibular dysfunction/BPPV. Continue meclizine. I performed [place]enton-Hallpike maneuver at bedside and indeterminant result. I did not notice any nystagmus but patient did endorse vision changes. Ultimately patient will need to follow-up with ENT specialist when medically cleared for discharge. Patient reports he has not had a bowel movement since admission which is atypical for him. Patient started on bowel regimen. Patient currently has intractable hypokalemia and we will continue to aggressively replete. Continue statin. LDL 111. Patient currently denies any withdrawal symptoms. He does have a significant history of alcohol use and we will monitor for withdrawal symptoms. Low threshold to start CIWA. Transaminitis present secondary to chronic alcohol use which is improving. Patient was counseled on alcohol cessation. He currently denies abdominal symptoms. Hepatically dosed medications and avoid hepatotoxic agents. Patient updated on the plan and in agreement. All questions answered to satisfaction. Please see residents note for additional details and management. Dr. Anisha MD
--- NOTE | 2024-12-29 07:56 | EKG_ITS ---
[facility] Test Date: 2024-12-29 Pat Name: KEELY QUIÑONEZ [facility] Electronics Tech: SEVERO : 1970 Requested By: Melissa Pritchett Order Number: [id number] Reading MD: Melissa Pritchett Measurements Intervals [place] Rate: 99 P: 21 PA: 172 QRS: 0 QRSD: 90 T: 49 QT: 337 QTc: 432 Interpretive Statements SINUS RHYTHM Compared to ECG 12/28/2024 12:05:24 Sinus tachycardia no longer present /store/S0/[id number]/ecg/[id number]
[2024-12-29] MEDS: HEPARIN SOD INJ 5000 UNIT/ML VIAL SC ×2 (08:21→20:22)
[2024-12-29] MEDS: THIAMINE 100 MG TABLET PO (08:22)
[2024-12-29] MEDS: MULTIVITAMINS TABLET 1 TAB PO (08:22)
[2024-12-29] MEDS: Magnesium Sulfate 4 GM Ivpb 4 GM/50 ML BAG IV (08:22)
[2024-12-29] MEDS: RINGERS LACTATED 1000 ML 1,000 ML 100 ML IV ×2 (10:07→21:07)
[2024-12-29] MEDS: LACTULOSE SYRUP 20 GM/30 ML UDC 30 GM PO ×2 (10:07→15:36)
[2024-12-29] MEDS: MECLIZINE HCL 25 MG TABLET PO (10:07)
[2024-12-29 12:54] LABS: Albumin, Serum 4.1 gm/dL (3.5-5.0); Anion Gap 13 (7-16); BUN/Creatinine Ratio 8 Ratio (12-20); Blood Urea Nitrogen 7 mg/dL (9-23); Calcium 10.2 mg/dL (8.3-10.6); Calcium (Corrected) 10.2 mg/dL (8.5-10.1); Carbon Dioxide 23.8 mMol/L (20.0-31.0); Chloride 94 mMol/L (98-107); Creatinine (Component) 0.9 mg/dL (0.6-1.3); Estimated Creatinine Clearance 110.9 mL/min (>60); Glucose 87 mg/dL (74-106); Osmolality,Calculated 259 (275-295); Phosphorous 2.3 mg/dL (2.4-5.1); Potassium 3.0 mMol/L (3.4-5.1); Sodium 131 mMol/L (136-145); eGFR > 60 See Note
--- NOTE | 2024-12-29 15:17 | PC.SS ---
Rounding note:pending BM, PT, d/c tomorrow home.
[2024-12-29] MEDS: ACETAMINOPHEN 325 MG TABLET 650 MG PO (17:40)
[2024-12-29] MEDS: SIMETHICONE 80 MG CHEW PO ×2 (17:41→18:42)
--- NOTE | 2024-12-29 18:46 | XR_ITS ---
Examination: Abdomen AP single view Technique: AP portable supine abdomen, single view Exam date and time: December 29, 2024 1908 hrs. Indications: Abdominal pain and distention this week. Findings: Air distended colon No free air No soft tissue mass Impression: Prominent colonic ileus
[2024-12-29] MEDS: HYDROcodone/APAP 5/325 TABLET 1 TAB PO (19:06)
[2024-12-29] MEDS: ATORVASTATIN CALCIUM 20 MG TABLET 40 MG PO (20:23)
--- NOTE | 2024-12-29 21:49 | PC.NURSE ---
MD Mayfield made aware of abdominal Xray result, pt is not complaining of pain at this time.
--- NOTE | 2024-12-29 23:35 | PD.NEUROPROG ---
Documentation for date of: 12/29/24 Subjective Subjective Interval history: Patient was seen in telemetry today. Still complains of dizziness with imbalance and worsening low back pain, no headache nausea or visual disturbances. He denies any weakness in the upper or lower extremities. Exam - Neurology Vital Signs Temp Pulse Resp BP Pulse Ox O2 Del Method 96.8 F 74 18 142/101 H 95 Room Air 12/29/24 20:00 12/29/24 20:14 12/29/24 20:14 12/29/24 20:00 12/29/24 20:00 12/29/24 20:00 Narrative Exam GENERAL APPEARANCE: Well-developed, obese built male in no acute distress. HEENT: Normocephalic, atraumatic, extraocular movements intact. Pupils: Equal reacting to light and accommodation NECK: Supple, no JVD or bruits. CARDIOVASULAR: Heart: S1, S2 heard, regular without S3-S4 or murmur no rubs or gallops. LUNGS/CHEST: Clear to auscultation bilaterally. No rails, rhonchi, or wheezing. Normal inspection. ABDOMEN: Soft, nontender, with normal bowel sounds. No pulsatile masses. No rebound, rigidity, or guarding. Normal inspection and palpation. EXTREMITIES: Normal inspection and palpation. No edema, clubbing or cyanosis. SKIN: Warm and dry without rashes. Normal inspection. MUSCULOSKELETAL: No cervical, thoracic, lumbar or midline bony tenderness. Normal inspection. NEURO: Alert, awake and oriented x3. Cranial nerves: II through XII grossly intact. No nystagmus noted. Speech and language: Normal with no dysarthria or dysphasia. Motor system: Tone and bulk: Normal: Strength: 5 out of 5 in all 4 extremities; No pronator drift noted. Deep tendon reflexes: 2+ bilaterally symmetrical. Plantar reflex: Downgoing bilaterally. Sensory system: Intact to all modalities of sensation bilaterally. Coordination: Intact to ibspss-dsew-qkbwk and jpuh-rekb-mmyn test bilaterally. No ataxia, no dysmetria, or dysdiadochokinesia noted. No intention tremors noted. Gait: not tested. No signs of meningeal irritation noted. PSYCHIATRIC: Normal mood and affect. Objective Labs 12/30/24 04:44 12/30/24 04:44 Labs: Laboratory Results - last 24 hr 12/29/24 12/29/24 04:35 11:52 WBC 6.9 RBC 4.20 L Hgb 13.5 D Hct 38.8 L MCV 92 MCH 32.1 MCHC 34.8 RDW Std Deviation 45.1 H Plt Count 98 L Neut % (Auto) 66 Lymph % (Auto) 18 [place] % (Auto) 15 H Eos % (Auto) 1 Baso % (Auto) 1 Neut # (Auto) 4.6 Lymph # (Auto) 1.2 [place] # (Auto) 1.0 H Eos # (Auto) 0.0 Baso # (Auto) 0.0 Immature Gran # (Auto) 0.03 H Absolute Nucleated RBC 0.00 Immature Gran % 0 Nucleated RBC % 0 Sodium 134 L 131 L Potassium 2.6 L* 3.0 L Chloride 95 L 94 L Carbon Dioxide 26.2 23.8 Anion Gap 13 13 BUN 8 L 7 L Creatinine 0.8 0.9 Estim Creat Clear Calc 124.8 110.9 eGFR > 60 > 60 BUN/Creatinine Ratio 10 L 8 L Glucose 87 87 Calculated Osmolality 265 L 259 L Calcium 9.6 10.2 Corrected Calcium 9.8 10.2 H Phosphorus 2.9 2.3 L Magnesium 1.8 Total Bilirubin 1.1 AST 84 H ALT 80 H Alkaline Phosphatase 94 Total Protein 6.1 Albumin 3.7 4.1 Globulin 2.4 Albumin/Globulin Ratio 1.5 Assessment & Plan Assessment and plan (1) Stroke-like symptom: Status: Acute Assessment and plan: Differential diagnosis: Benign paroxysmal positional vertigo/ brainstem TIA/vertebrobasilar insufficiency Reassurance given to the patient regarding the negative MRI brain for acute infarction, CT showing hypodensity in the cerebellar hemisphere is likely over read. Also noted elevated liver enzymes and low platelet count. Not sure if he has primary liver pathology. Will hold off on heparin and antiplatelet agent as the platelet count is low. Lower the statin dose until the liver enzymes go down. Replace the potassium as indicated. Hypokalemia could be contributing to the weakness but not dizziness. Will check the B12 and vitamin D level. Consider outpatient physical therapy for balancing exercises if it persist. (2) Obesity: Status: Chronic Assessment and plan: Suggested that he gets tested for sleep apnea and use CPAP nightly if he has not been doing it. Advised lifestyle changes with diet and exercise
[2024-12-30] VITALS (10 sets, daily range): BP systolic 119–136; BP diastolic 60–99; PULSE 71–116; RESP 17–98; TEMP 36.1–36.4; O2SAT 92–96; BMI 33.4
[2024-12-30] MEDS: ACETAMINOPHEN 325 MG TABLET 650 MG PO ×2 (00:22→18:07)
[2024-12-30 05:43] LABS: Basophils # (Auto) 0.0 Thou/mm3 (0.0-0.2); Basophils % (Auto) 0 % (0-2.5); Eosinophils # (Auto) 0.0 Thou/mm3 (0.0-0.5); Eosinophils % (Auto) 1 % (0-10); Hematocrit 41.2 % (41.0-53.0); Hemoglobin 14.7 g/dL (13.5-16.0); Immature Granulocytes Auto 0.03 Thou/mm3 (0.00-0.00); Lymphocytes # (Auto) 0.8 Thou/mm3 (1.0-4.8); Lymphocytes % (Auto) 14 % (10-50); Mean Corpuscular HGB Conc 35.7 g/dl (31.0-37.0); Mean Corpuscular Hemoglobin 33.0 pg (25.0-35.0); Mean Corpuscular Volume 92 fL (80-100); Monocytes # (Auto) 0.9 Thou/mm3 (0.0-0.8); Monocytes % (Auto) 17 % (0-12); Neutrophils # (Auto) 3.7 Thou/mm3 (1.8-7.7); Neutrophils % (Auto) 68 % (37-80); Nucleated Red Blood Cell # 0.00 Thou/mm3 (0.00-0.00); Nucleated Red Blood Cell % 0 /100 WBC (0); Platelet Count 117 Thou/mm3 (140-440); RDW Standard Deviation 44.5 fL (35.1-43.9); Red Blood Count 4.46 Miln/mm3 (4.50-5.90); White Blood Count 5.4 Thou/mm3 (3.8-10.6)
[2024-12-30 06:21] LABS: Alanine Aminotransferase 83 U/L (10-49); Albumin, Serum 3.9 gm/dL (3.5-5.0); Albumin/Globulin Ratio 1.6 (1.2-2.2); Alkaline Phosphatase 105 U/L (46-116); Anion Gap 13 (7-16); Aspartate Amino Transferase 97 U/L (0-34); BUN/Creatinine Ratio 9 Ratio (12-20); Bilirubin,Total 1.0 mg/dL (0.3-1.2); Blood Urea Nitrogen 7 mg/dL (9-23); Calcium 9.8 mg/dL (8.3-10.6); Calcium (Corrected) 9.9 mg/dL (8.5-10.1); Carbon Dioxide 24.5 mMol/L (20.0-31.0); Chloride 94 mMol/L (98-107); Creatinine (Component) 0.8 mg/dL (0.6-1.3); Estimated Creatinine Clearance 125.5 mL/min (>60); Globulin 2.4 gm/dL (2.3-3.5); Glucose 96 mg/dL (74-106); Magnesium 2.0 mg/dL (1.6-2.6); Osmolality,Calculated 260 (275-295); Phosphorous 3.3 mg/dL (2.4-5.1); Potassium 3.6 mMol/L (3.4-5.1); Sodium 131 mMol/L (136-145); Total Protein 6.3 gm/dL (5.7-8.2); eGFR > 60 See Note
--- NOTE | 2024-12-30 08:19 | PD.RESPRO ---
Documentation for date of: 12/30/24 Subjective Subjective Interval history: Patient is a 54-year-old male with a medical history of chronic lower back pain on as needed [place] and muscle relaxant, alcohol use, and obesity presents to [facility] emergency department on 12/27/2024 with chief complaint of dizziness and weakness. He reports he has had dizziness and unsteady gait which has worsened over the last 48 hours prompting him to come to the emergency room. He denies any difficulty speaking, no facial weakness or loss of sensation. He denies a previous history of similar symptoms. He denies changes in dizziness with head movements but does seem worse from sitting to rising position. He reports he does not take any medicines at home except for pain medicines for chronic back pain. He denies taking any aspirin or NSAIDs at home. He denies any recent falls. Patient lives in [place] with family. 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 He denies a history of diabetes. Patient denies headache, vision changes, chest pain, shortness of breath, nausea/vomiting, abdominal pain, urinary symptoms, and no GI symptoms at this time. 12/28/2024: patient seen and examined at bedside pt appears slightly withdrawn/ depressed mood. Patient states that he may be withdrawing although he states that his last drink was 5 days ago. On admission UTOX and urine alcohol was negative. Stroke was ruled out on CT head and MRI and CTA head and neck, although they did note a left hypointensity the left cerebellum, no cervical spine solid exam normal [id number] normal [id number]. Started patient on thiamine and multivitamin and alcohol history patient had reported dizziness given 25 of meclizine on exam was slightly tachycardic EKG showed sinus tach. 12/29/2024: Patient seen and examined at bedside patient continues to appear slightly withdrawn and anxious he reports that he is concerned about what could be going with him given his persistent dizziness. Unclear whether patient dizziness improved with meclizine given. Dr. Masterson can perform Jami-Hallpike with no notable nystagmus. However suspect BPPV. Echocardiogram demonstrated heart failure with reduced ejection fraction of 40 to 45%, given patient would likely benefit from GDMT patient was started on Coreg 3.125 twice daily. His potassium today was 2.9 he was given 40 ME in the morning and repeated afternoon renal panel with K of 3.0 given additional 20 ME, pending updated PT note. 12/30/2024 patient seen and examined at bedside he appears to be uncomfortable with abdomen notably distended nontender however patient endorses pressure bowel sounds are hypoactive. KUB from yesterday with colonic ileus. Patient was given suppository which resulted in watery stool plan for enema and NG tube placement to low intermittent suction given increased belching and concern for aspiration risk. mild hyponatremia, 131 may be contributing to symptoms of dizziness. pt is NPO. pt has had some bits of food and drink despite being npo, brought in by family, reiterated the importance of staying npo. NG tube was placed and on XR showed coiling in the esophagus. Dr. Brown reccomend rremoving tube completely and reinserting, pt declined to have tube reinserted and was counseled on the risk of aspiration. he understood these risks and decided to continue without NG tube. will be placed on aspiration precautions, and keep head of bead at 45degrees Exam Vital Signs Temp Pulse Resp BP Pulse Ox O2 Del Method 96.9 F 71 19 128/93 H 94 L Room Air 12/30/24 04:00 12/30/24 07:00 12/30/24 07:00 12/30/24 04:00 12/30/24 04:00 12/30/24 04:00 Narrative Exam Gen: A&O NAD HEENT: NCAT, EOMI, not icteric. External ears normal. No rhinorrhea. Moist mucous membranes. c/o dizziness. Neck: Supple, full range of motion, no observable masses, No meningeal sign. Lungs: No Respiratory distress. CV: sinus tachycardia , Normal S1/S2, no edema. Abdomen: rigid, tense, tympanic, hypoactive bowel sounds, notable distention. No rebound tenderness. MSK: No joint swelling, no redness. Skin: No rashes, petechiae, lesions. Normal color per patient. Neuro: Gait not assessed. (pt did ambulate with nurse using walker) nl finger nose finger, nl heel knee kelly. CN II-XII grossly intact. Psych: Appropriate for situation. slightly depressed and axious mood. Objective Labs 12/30/24 04:44 12/30/24 04:44 Labs: Laboratory Results - last 24 hr 12/29/24 12/30/24 11:52 04:44 WBC 5.4 RBC 4.46 L Hgb 14.7 Hct 41.2 MCV 92 MCH 33.0 MCHC 35.7 RDW Std Deviation 44.5 H Plt Count 117 L Neut % (Auto) 68 Lymph % (Auto) 14 [place] % (Auto) 17 H Eos % (Auto) 1 Baso % (Auto) 0 Neut # (Auto) 3.7 Lymph # (Auto) 0.8 L [place] # (Auto) 0.9 H Eos # (Auto) 0.0 Baso # (Auto) 0.0 Immature Gran # (Auto) 0.03 H Absolute Nucleated RBC 0.00 Immature Gran % 1 H Nucleated RBC % 0 Sodium 131 L 131 L Potassium 3.0 L 3.6 D Chloride 94 L 94 L Carbon Dioxide 23.8 24.5 Anion Gap 13 13 BUN 7 L 7 L Creatinine 0.9 0.8 Estim Creat Clear Calc 110.9 125.5 eGFR > 60 > 60 BUN/Creatinine Ratio 8 L 9 L Glucose 87 96 Calculated Osmolality 259 L 260 L Calcium 10.2 9.8 Corrected Calcium 10.2 H 9.9 Phosphorus 2.3 L 3.3 Magnesium 2.0 Total Bilirubin 1.0 AST 97 H ALT 83 H Alkaline Phosphatase 105 Total Protein 6.3 Albumin 4.1 3.9 Globulin 2.4 Albumin/Globulin Ratio 1.6 Quality Measures Quality Measures VTE prophylaxis and stroke Suspected type of Stroke: Non Acute Tenecteplase given: Reason(s) Tenecteplase not given: Outside the time window not given Rehab services: PT evaluation ordered and Speech Language Pathology eval ordered VTE Prophylaxis: pharmaceutical Antithrombotic by day 2:: not indicated (describe) Statin ordered: <75 y/o high intensity dose Anticoagulation ordered for A-fib or flutter (current or hx): not indicated Assessment & Plan Assessment Current Active Medications: Generic Name Dose Route Start Last Admin Trade Name Freq PRN Reason Stop Dose Admin Acetaminophen 650 mg 12/27/24 16:47 12/29/24 17:40 Acetaminophen 325 Mg Tablet PO 01/26/25 16:46 650 mg Q6H PRN Administration Fever >101.5 Acetaminophen 650 mg 12/27/24 16:47 12/30/24 00:22 Acetaminophen 325 Mg Tablet PO 01/26/25 16:46 650 mg Q6H PRN Administration PAIN SCALE 1-3 (mild Atorvastatin Calcium 40 mg 12/29/24 21:00 12/29/24 20:23 Atorvastatin Calcium 20 Mg Tablet PO 01/28/25 20:59 40 mg HS RICK Administration Carvedilol 3.125 mg 12/29/24 09:50 12/30/24 07:44 Carvedilol 3.125 Mg Tablet PO 01/28/25 09:49 Not Given BIDWM RICK Heparin Sodium (Porcine) 5,000 unit 12/28/24 21:00 12/29/24 20:22 Heparin Sod Inj 5000 Unit/Ml Vial SC 01/11/25 20:59 5,000 unit Q12HR RICK Administration Protocol Labetalol HCl 10 mg 12/27/24 16:59 Labetalol Inj 5 Mg/Ml Vial 20 Ml IVP Q15M PRN HIGH BP Meclizine HCl 25 mg 12/29/24 09:49 12/29/24 10:07 Meclizine Hcl 25 Mg Tablet PO 01/28/25 09:48 25 mg TID PRN Administration DIZZINESS Multivitamins 1 tab 12/28/24 12:30 12/30/24 07:45 Multivitamins Tablet PO 01/27/25 12:29 Not Given QDAY RICK Ondansetron HCl 4 mg 12/27/24 14:46 Ondansetron Inj 2 Mg/Ml Inj 2 Ml IVP 01/26/25 14:45 Q4HR PRN NAUSEA OR VOMITING Protocol Simethicone 80 mg 12/28/24 19:24 12/29/24 18:42 Simethicone 80 Mg Chew PO 01/27/25 19:23 80 mg QID PRN Administration GAS Thiamine HCl 100 mg 12/28/24 12:30 12/30/24 07:44 Thiamine 100 Mg Tablet PO 01/27/25 12:29 Not Given QDAY RICK Plan Patient is a 54-year-old male with a medical history of chronic lower back pain on as needed [place] and muscle relaxant, alcohol use, and obesity presents to [facility] emergency department on 12/27/2024 with chief complaint of dizziness and weakness. Patient admitted for CVA, ruled out, echo with 40-45% EF, started on GDMT, suspect BPPV as source of dizziness that persists, new onset colonic ileus with ng tube on LIS. #colonic ileus #constipation pt takes percocet for chronic lbp however he endorses having regular bowel movements at home an takes supplemental fiber given lactulose 60 gm yesterday which produced 3 BM pt has new abdominal distention, nontender to palpation, on KUB with colonic ileus pattern, given suppository which produced watery stool, increased belching increased concern for possible aspiration risk Plan : - NPO please reinforce with pt and family members that visit - ng tube was coiled in esophagus, pt declined to replace tube and was counseled on the risk of aspiration - aspiration precautions - head of bed at 45 degrees - water enema - LR 85cc/hr #Dizziness 2/2 #suspect BPPV #mild hyponatremia #CVA RULED OUT - Presented with chief complaints of dizziness and weakness - Consult in-house neurology, recommendations appreciated - B12 elevated and Vit D 25 wnl - jami hallpike without nystagmus on exam, no hearing loss or changes, describes as positional, orthostatics negative, suspect BPPV - Vascular risk factor screening: A1c, TSH, lipid panel, follow-up test to control vascular risk factors - echocardiogram: EF 40-45% - mild hyponatremia may be contributing to dizziness symptoms. Plan: - trial Diazapam 2mg IV for dizziness - recommend outpatient f/u with ENT - atorvastatin 40 mg p.o. at bedtime. (ascvd 3.9%) - Consult in-house neurology, recommendations appreciated. - given meclizine 25 TID PRN (minimal relief) - encouraged to ambulate with assistance. (evaluated by PT) - start on GDMT: Coreg 3.125 BID #intractable hypokalemia (2.9 --> 3) - resolved given 40 ME in the AM and 20 ME in the PM. -daily cmp -replete as indicated # Alcohol use disorder #anxiety - Patient has significant history of alcohol use, Urine etoh negative - Plan: He reports his last drink was 5 days prior to admission, He denies being hospitalized for alcohol with drawl in the past. - start thiamine qd - start multivitamine qd - Low threshold to start CIWA if patient develops symptoms # Transaminitis- improving - On admission AST 174, ALT 142, ALP 130 - Most likely secondary to alcohol use - Plan: Avoid hepatotoxic agents and hepatically dose medications. Counseled patient on alcohol cessation. Continue to trend LFTs daily. # Elevated anion gap- resolved - Plan: No history of diabetes and no acidosis noted on chemistry panel. Most likely elevated from alcoholic ketoacidosis. Continue fluids and repeat levels in AM. # Chronic back pain - Plan: Secondary to injury at work. He takes as needed [place] once a week at home. - Lidocane 5% patch prn DVT prophylaxis; heparin Diet: npo in setting of colonic ileus CODE STATUS: Full code Dispo: pending pt evaluation, ambulated with walker and assistance. continues to endorse dizziness.new colonic ileus with significant abdominal distention, ng tube on lis. continues to have mild hyponatremia, on LR 85cc/hr Plan discussed with Dr. Anisha Pritchett MD PGY1 Attending Provider Attestation/Addendum I have examined the patient, reviewed labs and imaging findings, discussed the case with the resident(s), and reviewed entered orders. I agree with the plan of care as outlined in this note, with these additional summaries/recommendations: Patient is a 54-year-old male with a medical history of chronic lower back pain on as needed [place] and muscle relaxant, alcohol use, and obesity presents to [facility] emergency department on 12/27/2024 with chief complaint of dizziness and weakness. Patient admitted for CVA rule out. Patient seen at bedside. No acute overnight events. Patient was ambulated by medical staff down the hallway today although did develop dizziness and had to be wheelchair at back to his room. Yesterday evening patient endorsed constipation and abdominal x-ray was obtained which showed colonic ileus. Today patient's abdomen appears distended. Despite distention he denies nausea/vomiting. He reports he had a small bowel movement this morning. He reports he is tolerating diet. We will give docusate suppository and monitor for improvement. If no improvement we will consult general surgery and place NG tube to LIS. Patient continues to endorse intermittent dizziness which appear provoked by changes in position. Patient was unable to fully work with physical therapy given significant dizziness and had to return to bed. Patient did not respond to multiple doses of meclizine. We will add diazepam today and monitor for improvement in dizziness. Patient completed MRI brain which was negative for acute CVA. Possible etiologies for dizziness are vestibular dysfunction/BPPV. Continue meclizine. I performed Jami-Hallpike maneuver yesterday at bedside with indeterminate result. I did not notice any nystagmus but patient did endorse vision changes. Ultimately patient will need to follow-up with ENT specialist when medically cleared for discharge. We will give dose of diazepam and monitor for improvement. Continue statin. LDL 111. He does have a significant history of alcohol use and we will monitor for withdrawal symptoms. Transaminitis present secondary to chronic alcohol use which is improving. Patient was counseled on alcohol cessation. He currently denies abdominal symptoms. Hepatically dosed medications and avoid hepatotoxic agents. Patient updated on the plan and in agreement. All questions answered to satisfaction. Please see residents note for additional details and management. Dr. Anisha MD
[2024-12-30] MEDS: HEPARIN SOD INJ 5000 UNIT/ML VIAL SC ×2 (08:25→20:23)
[2024-12-30] MEDS: LIDOCAINE 5% 1 PATCH TOP (08:33)
[2024-12-30 09:09] LABS: Vitamin B12 1531 pg/mL (211-911); Vitamin D 25 Hydroxy Total 17.3 ng/mL (7.3-40.2)
[2024-12-30] MEDS: DIAZEPAM INJ 5 MG/ML VIAL 2 ML 2 MG IVP (12:55)
[2024-12-30] MEDS: RINGERS LACTATED 1000 ML 1,000 ML 85 ML IV (15:30)
--- NOTE | 2024-12-30 16:01 | XR_ITS ---
Examination: AP chest single view Technique: AP portable upright chest single view Date and time: December 30, 2024, 1610 hrs., Comparison 12/27/2024 Indications: Hypoxic respiratory failure, postintubation. Findings: Orogastric tube is coiled in in the midesophagus Mild prominence left ventricle Minor subsegmental atelectasis left base Air distended bowel beneath the left hemidiaphragm Impression: Remove the orogastric tube completely and reinsert
--- NOTE | 2024-12-30 17:11 | PD.RESPRO ---
Documentation for date of: 12/30/24 Subjective Subjective Interval history: 12/30/2024: Patient was seen and examined at the bedside. No acute overnight events were reported. Patient was found to have moderate abdominal distention which was confirmed with KUB which showed colonic ileus. He reported that he walked with nurse and dizziness has markedly improved. Will recommend to continue meclizine which seems to be helpful. Patient has been n.p.o. and NG tube has been placed by primary team due to colonic ileus. Exam Vital Signs Temp Pulse Resp BP Pulse Ox O2 Del Method 97.0 F 98 18 136/60 H 96 Room Air 12/30/24 16:00 12/30/24 16:00 12/30/24 16:00 12/30/24 16:00 12/30/24 16:00 12/30/24 16:00 Narrative Exam GENERAL APPEARANCE: AxOx4, generally well-appearing male constantly burping HEENT: NC, AT. MMM. EOMI, clear conjunctiva, oropharynx clear. NECK: Supple without lymphadenopathy. No stiffness or restricted ROM. HEART: Normal rate and regular rhythm, normal S1/S2, no m/r/g LUNGS: CTAB, moving air well. No crackles or wheezes are heard. ABDOMEN: Soft, markedly distended tympaniic with hypoactive bowel sounds heard. BACK: No CVAT, no obvious deformity. EXTREMITIES: Without cyanosis, clubbing or edema. NEUROLOGICAL: Grossly nonfocal. Alert and oriented, moving all 4 extremities. CN not formally tested but appear grossly intact. Observed to ambulate with normal gait. Skin: Warm and dry without any rash. Pscyh;appropriate mood and affect Objective Labs 12/30/24 04:44 12/30/24 04:44 Labs: Laboratory Results - last 24 hr 12/29/24 12/30/24 04:35 04:44 WBC 5.4 RBC 4.46 L Hgb 14.7 Hct 41.2 MCV 92 MCH 33.0 MCHC 35.7 RDW Std Deviation 44.5 H Plt Count 117 L Neut % (Auto) 68 Lymph % (Auto) 14 [place] % (Auto) 17 H Eos % (Auto) 1 Baso % (Auto) 0 Neut # (Auto) 3.7 Lymph # (Auto) 0.8 L [place] # (Auto) 0.9 H Eos # (Auto) 0.0 Baso # (Auto) 0.0 Immature Gran # (Auto) 0.03 H Absolute Nucleated RBC 0.00 Immature Gran % 1 H Nucleated RBC % 0 Sodium 131 L Potassium 3.6 D Chloride 94 L Carbon Dioxide 24.5 Anion Gap 13 BUN 7 L Creatinine 0.8 Estim Creat Clear Calc 125.5 eGFR > 60 BUN/Creatinine Ratio 9 L Glucose 96 Calculated Osmolality 260 L Calcium 9.8 Corrected Calcium 9.9 Phosphorus 3.3 Magnesium 2.0 Total Bilirubin 1.0 AST 97 H ALT 83 H Alkaline Phosphatase 105 Total Protein 6.3 Albumin 3.9 Globulin 2.4 Albumin/Globulin Ratio 1.6 Vitamin B12 1531 H 25-OH Vitamin D Total 17.3 Quality Measures Quality Measures VTE prophylaxis (heparin sc) and stroke Suspected type of Stroke: Non Acute Tenecteplase given: Reason(s) Tenecteplase not given: Outside the time window not given Rehab services: PT evaluation ordered VTE Prophylaxis: pharmaceutical Antithrombotic by day 2:: not indicated (describe) (stroke ruled out) Statin ordered: <75 y/o high intensity dose Anticoagulation ordered for A-fib or flutter (current or hx): not indicated Assessment & Plan Assessment Current Active Medications: Generic Name Dose Route Start Last Admin Trade Name Freq PRN Reason Stop Dose Admin Acetaminophen 650 mg 12/27/24 16:47 12/29/24 17:40 Acetaminophen 325 Mg Tablet PO 01/26/25 16:46 650 mg Q6H PRN Administration Fever >101.5 Acetaminophen 650 mg 12/27/24 16:47 12/30/24 00:22 Acetaminophen 325 Mg Tablet PO 01/26/25 16:46 650 mg Q6H PRN Administration PAIN SCALE 1-3 (mild Atorvastatin Calcium 40 mg 12/29/24 21:00 12/29/24 20:23 Atorvastatin Calcium 20 Mg Tablet PO 01/28/25 20:59 40 mg HS RICK Administration Carvedilol 3.125 mg 12/29/24 09:50 12/30/24 07:44 Carvedilol 3.125 Mg Tablet PO 01/28/25 09:49 Not Given BIDWM RICK Heparin Sodium (Porcine) 5,000 unit 12/28/24 21:00 12/30/24 08:25 Heparin Sod Inj 5000 Unit/Ml Vial SC 01/11/25 20:59 5,000 unit Q12HR RICK Administration Protocol Lactated Ringer's 1,000 mls @ 85 mls/hr 12/30/24 15:11 12/30/24 15:30 Lactated Ringers IV 01/29/25 15:10 85 mls/hr .[id number] RICK Administration Labetalol HCl 10 mg 12/27/24 16:59 Labetalol Inj 5 Mg/Ml Vial 20 Ml IVP Q15M PRN HIGH BP Lidocaine 1 patch 12/30/24 08:25 12/30/24 08:33 Lidocaine 5% 1 Patch TOP 01/29/25 08:24 1 patch UD PRN Administration PAIN Protocol Meclizine HCl 25 mg 12/29/24 09:49 12/29/24 10:07 Meclizine Hcl 25 Mg Tablet PO 01/28/25 09:48 25 mg TID PRN Administration DIZZINESS Multivitamins 1 tab 12/28/24 12:30 12/30/24 07:45 Multivitamins Tablet PO 01/27/25 12:29 Not Given QDAY RICK Ondansetron HCl 4 mg 12/27/24 14:46 Ondansetron Inj 2 Mg/Ml Inj 2 Ml IVP 01/26/25 14:45 Q4HR PRN NAUSEA OR VOMITING Protocol Simethicone 80 mg 12/28/24 19:24 12/29/24 18:42 Simethicone 80 Mg Chew PO 01/27/25 19:23 80 mg QID PRN Administration GAS Thiamine HCl 100 mg 12/28/24 12:30 12/30/24 07:44 Thiamine 100 Mg Tablet PO 01/27/25 12:29 Not Given QDAY RICK Plan This patient is a 54-year-old male with past medical history of chronic low back pain on [place] and muscle relaxant, alcohol use, and obesity presented to the ED on 12/27/2024 with chief complaint of dizziness and weakness. Stroke has been ruled out. Suspected BPPV as source of dizziness. #Dizziness likely related to Possible BPPV/brainstem TIA/vertebrobasilar insufficiency #Stroke, ruled out - MRI brain showed no acute infarction. CT brain showed hypodensity in cerebellar hemisphere likely over read. Echocardiogram showed EF 40-45% on GDMT Reassurance given to the family as stroke was ruled out on 12/29 Plan: Continue statin therapy as liver functions improving Platelets improving Meclizine 25 mg daily as needed for dizziness Continue Coreg 3.25 mg twice daily Correct electrolytes including potassium could be attributing to the weakness Follow-up with vitamin B12 and vitamin D level Will benefit from outpatient physical therapy for balancing exercises if persist #Obesity Plan: Recommended to have sleep studies Recommended CPAP at night Lifestyle changes with diet and exercise #Colonic ileus post NGT placement due to chronic opiod use #Intractable hypokalemia #Transaminitis #Thrombocytopenia #Chronic constipation #Alcohol use disorder #Chronic back pain on [place] Rest of the management as per primary care team. Plan of care discussed with neurologist, Dr Flores Cruz MD, PGY 3
--- NOTE | 2024-12-30 17:20 | PC.NURSE ---
Pt refused Enema. Doctor Mikel in to see patient.
--- NOTE | 2024-12-30 17:23 | PC.NURSE ---
pt refusied NGT. Doctor Mikel in to speak with patient. Pt still refuses. will give enema.
--- NOTE | 2024-12-30 17:36 | PC.NURSE ---
Spoke with Dr. Morin. Put patient on 2 liters nc for 02 sats of 90% patient hr 116. b/p 119/96.
[2024-12-30] MEDS: SIMETHICONE 80 MG CHEW PO (18:07)
[2024-12-30] MEDS: MECLIZINE HCL 25 MG TABLET PO (18:15)
[2024-12-30] MEDS: ATORVASTATIN CALCIUM 20 MG TABLET 40 MG PO (20:21)
[2024-12-31] VITALS (10 sets, daily range): BP systolic 94–115; BP diastolic 75–85; PULSE 92–110; RESP 17–20; TEMP 36.1–37.3; O2SAT 90–96
[2024-12-31] MEDS: RINGERS LACTATED 1000 ML 1,000 ML 85 ML IV ×2 (02:53→14:32)
[2024-12-31 06:35] LABS: Magnesium 1.8 mg/dL (1.6-2.6); Phosphorous 3.3 mg/dL (2.4-5.1)
[2024-12-31] MEDS: HEPARIN SOD INJ 5000 UNIT/ML VIAL SC ×2 (08:26→20:16)
[2024-12-31] MEDS: MULTIVITAMINS TABLET 1 TAB PO (08:30)
[2024-12-31] MEDS: THIAMINE 100 MG TABLET PO (08:31)
--- NOTE | 2024-12-31 12:01 | XR_ITS ---
Examination: Abdomen AP single view Technique: AP portable supine abdomen, single view Exam date and time: December 31, 2024 1236 hours, comparison 12/29/2024 INDICATIONS: Worsening abdominal distention this week. FINDINGS: Prominent colonic ileus Dilated small bowel Significant No free air IMPRESSION: Prominent colonic ileus, consider CT scan abdomen pelvis post intravenous contrast follow-up
--- NOTE | 2024-12-31 13:46 | PC.PT ---
Patient refused PT again today. This is the 2nd consecutive day that patient refused PT.
--- NOTE | 2024-12-31 14:18 | ESCONSULT_ITS ---
HPI Data of Consult Requesting Physician: Chuy Lancaster MD Admitting Provider: Chuy Lancaster MD Attending Provider: Chuy Lancaster MD Primary Care Provider: Alan Torre MD Consult Narrative Reason for consult: NG tube placement - previous attempts unsuccessful History of present illness: 54-year-old male with history of chronic lower back pain (on [place] PRN), alcohol use, and obesity, admitted on 12/27/24 for dizziness and weakness. Stroke work-up negative. Course complicated by colonic ileus with progressive abdominal distention and belching, concerning for aspiration risk. NG tube was attempted by nursing staff but coiled in the esophagus on XR. Tube was removed and re- insertion recommended, but patient declined after risks were discussed. Currently NPO with aspiration precautions and HOB at 45?. cc:: cc: Chuy Lancaster MD Exam Vital Signs Temp Pulse Resp BP Pulse Ox O2 Del Method 98.2 F 104 H 19 107/84 90 L Room Air 12/31/24 12:00 12/31/24 12:00 12/31/24 12:00 12/31/24 12:00 12/31/24 12:00 12/31/24 12:00 Narrative Exam Gen: alert, mildly anxious, NAD Abdomen: distended, tympanic, hypoactive bowel sounds, nontender, no rebound Lungs: no distress, no wheezing CV: sinus tach, stable BP Neuro: no focal deficits Results Labs 12/30/24 04:44 12/30/24 04:44 Quality Measures Quality Measures VTE prophylaxis (heparin sc) and stroke Suspected type of Stroke: Non Acute Tenecteplase given: Reason(s) Tenecteplase not given: Outside the time window not given Rehab services: PT evaluation ordered VTE Prophylaxis: pharmaceutical Antithrombotic by day 2:: ordered Statin ordered: >75 y/o moderate or high intensity dose Anticoagulation ordered for A-fib or flutter (current or hx): ordered Medications Home Medications and Allergies Home Medications ?Medication ?Instructions ?Recorded ?Confirmed ?Type oxycodone-acetaminophen 10 mg-325 1 tab PO Q6H PRN timo n 12/27/24 12/27/24 History mg tablet Allergies Allergy/AdvReac Type Severity Reaction Status Date / Time No Known Allergies Allergy Verified 12/27/24 12:39 Visit Medications Acetaminophen (Acetaminophen 325 Mg Tablet) 650 mg PO Q6H PRN PRN Reason: Fever >101.5 Stop: 01/26/25 16:46 Last Admin: 12/29/24 17:40 Dose: 650 mg Acetaminophen (Acetaminophen 325 Mg Tablet) 650 mg PO Q6H PRN PRN Reason: PAIN SCALE 1-3 (mild Stop: 01/26/25 16:46 Last Admin: 12/30/24 18:07 Dose: 650 mg Atorvastatin Calcium (Atorvastatin Calcium 20 Mg Tablet) 40 mg PO HS [facility] Stop: 01/28/25 20:59 Last Admin: 12/30/24 20:21 Dose: 40 mg Carvedilol (Carvedilol 3.125 Mg Tablet) 3.125 mg PO BIDWM [facility] Stop: 01/28/25 09:49 Last Admin: 12/31/24 08:30 Dose: 3.125 mg Heparin Sodium (Porcine) (Heparin Sod Inj 5000 Unit/Ml Vial) 5,000 unit SC Q12HR [facility]; Protocol Stop: 01/11/25 20:59 Last Admin: 12/31/24 08:26 Dose: 5,000 unit Lactated Ringer's (Lactated Ringers) 1,000 mls @ 85 mls/hr IV .[id number] [facility] Stop: 01/29/25 15:10 Last Admin: 12/31/24 02:53 Dose: 85 mls/hr Labetalol HCl (Labetalol Inj 5 Mg/Ml Vial 20 Ml) 10 mg IVP Q15M PRN PRN Reason: HIGH BP Lidocaine (Lidocaine 5% 1 Patch) 1 patch TOP UD PRN; Protocol PRN Reason: PAIN Stop: 01/29/25 08:24 Last Admin: 12/30/24 08:33 Dose: 1 patch Meclizine HCl (Meclizine Hcl 25 Mg Tablet) 25 mg PO TID PRN PRN Reason: DIZZINESS Stop: 01/28/25 09:48 Last Admin: 12/30/24 18:15 Dose: 25 mg Multivitamins (Multivitamins Tablet) 1 tab PO QDAY [facility] Stop: 01/27/25 12:29 Last Admin: 12/31/24 08:30 Dose: 1 tab Ondansetron HCl (Ondansetron Inj 2 Mg/Ml Inj 2 Ml) 4 mg IVP Q4HR PRN; Protocol PRN Reason: NAUSEA OR VOMITING Stop: 01/26/25 14:45 Simethicone (Simethicone 80 Mg Chew) 80 mg PO QID PRN PRN Reason: GAS Stop: 01/27/25 19:23 Last Admin: 12/30/24 18:07 Dose: 80 mg Thiamine HCl (Thiamine 100 Mg Tablet) 100 mg PO QDAY [facility] Stop: 01/27/25 12:29 Last Admin: 12/31/24 08:31 Dose: 100 mg Discontinued Medications Hydrocodone Bitart/Acetaminophen (Hydrocodone/Apap 5/325 Tablet) 1 tab PO X1 ONE Stop: 12/29/24 18:47 Last Admin: 12/29/24 19:06 Dose: 1 tab Aspirin (Aspirin Ec 81 Mg Tabec) 81 mg PO X1 ONE Stop: 12/27/24 15:23 Last Admin: 12/27/24 15:33 Dose: 81 mg Atorvastatin Calcium (Atorvastatin Calcium 20 Mg Tablet) 80 mg PO HS RICK Stop: 01/26/25 20:59 Atorvastatin Calcium (Atorvastatin Calcium 20 Mg Tablet) 40 mg PO HS RICK Stop: 01/26/25 20:59 Last Admin: 12/28/24 20:17 Dose: 40 mg Atorvastatin Calcium (Atorvastatin Calcium 20 Mg Tablet) 20 mg PO HS RICK Stop: 01/28/25 20:59 Bisacodyl (Bisacodyl 10 Mg Supp) 10 mg WA X1 ONE; Protocol Stop: 12/30/24 11:54 Last Admin: 12/30/24 12:58 Dose: 10 mg Diazepam (Diazepam Inj 5 Mg/Ml Vial 2 Ml) 2 mg IVP X1 ONE Stop: 12/30/24 12:09 Last Admin: 12/30/24 12:55 Dose: 2 mg Heparin Sodium (Porcine) (Heparin Sod Inj 5000 Unit/Ml Vial) 5,000 unit SC Q8HR [facility] Stop: 01/10/25 21:59 Last Admin: 12/28/24 05:48 Dose: 5,000 unit Lactated Ringer's (Lactated Ringers) 1,000 mls @ 75 mls/hr IV .[id number] [facility] Stop: 01/26/25 16:59 Last Admin: 12/27/24 17:16 Dose: 75 mls/hr Sodium Chloride (Ns) 1,000 mls @ 80 mls/hr IV .[id number] [facility]ICK Stop: 01/27/25 07:52 Last Infusion: 12/28/24 13:10 Dose: 100 mls/hr Sodium Chloride (Ns) 1,000 mls @ 100 mls/hr IV .Q10H [facility] Stop: 01/27/25 12:24 Last Admin: 12/28/24 23:16 Dose: 100 mls/hr Magnesium Sulfate (Magnesium Sulfate Ivpb) 4 gm in 50 mls @ 12.5 mls/hr IV X1 ONE Stop: 12/29/24 11:54 Last Admin: 12/29/24 08:22 Dose: 12.5 mls/hr Lactated Ringer's (Lactated Ringers) 1,000 mls @ 100 mls/hr IV .Q10H [facility] Stop: 01/28/25 07:58 Last Admin: 12/30/24 08:19 Dose: Not Given Potassium Chloride (Kcl Ivpb) 10 meq in 100 mls @ 100 mls/hr IV Q1H [facility] Stop: 12/30/24 09:49 Last Admin: 12/30/24 08:20 Dose: Not Given Labetalol HCl (Labetalol Inj 5 Mg/Ml Vial 20 Ml) 10 mg IVP Q15M PRN PRN Reason: HIGH BP Lactulose (Lactulose Syrup 20 Gm/30 Ml Udc) 30 gm PO X1 ONE; Protocol Stop: 12/29/24 09:51 Last Admin: 12/29/24 10:07 Dose: 30 gm Lactulose (Lactulose Syrup 20 Gm/30 Ml Udc) 30 gm PO X1 ONE; Protocol Stop: 12/29/24 14:53 Last Admin: 12/29/24 15:36 Dose: 30 gm Meclizine HCl (Meclizine Hcl 25 Mg Tablet) 25 mg PO X1 ONE Stop: 12/28/24 09:54 Last Admin: 12/28/24 11:11 Dose: 25 mg Potassium Chloride (Potassium Chloride 20 Meq Tabcr) 40 meq PO X1 ONE Stop: 12/27/24 15:33 Last Admin: 12/27/24 15:43 Dose: 40 meq Potassium Chloride (Potassium Chloride 20 Meq Tabcr) 20 meq PO X1 ONE Stop: 12/28/24 07:44 Last Admin: 12/28/24 09:40 Dose: 20 meq Potassium Chloride (Potassium Chloride 20 Meq Tabcr) 40 meq PO X1 ONE Stop: 12/29/24 07:54 Last Admin: 12/29/24 08:22 Dose: 40 meq Potassium Chloride (Potassium Chloride 20 Meq Tabcr) 20 meq PO X1 ONE Stop: 12/29/24 12:58 Last Admin: 12/29/24 13:27 Dose: 20 meq Sennosides (Senna Tablet) 1 tab PO X1 ONE; Protocol Stop: 12/28/24 21:49 Last Admin: 12/28/24 22:09 Dose: 1 tab Sennosides (Senna Tablet) 1 tab PO X1 ONE; Protocol Stop: 12/29/24 09:52 Last Admin: 12/29/24 10:07 Dose: 1 tab Simethicone (Simethicone 80 Mg Chew) 80 mg PO X1 ONE Stop: 12/28/24 19:25 Last Admin: 12/28/24 19:43 Dose: 80 mg Assessment & Plan Plan # Colonic ileus with abdominal distention # Failed NG tube placement # Patient refusal of re-insertion after risk counseling Plan: * NG tube placement tonight by Dr Restrepo ----- Plan discussed with attending physician Dr. Lauro Hatch MD PGY-1 Internal Medicine Attending Provider Attestation/Addendum Patient examined Chart reviewed imaging studies reviewed Patient has abdominal distention with ileus Definitely will benefit from placement of a NGT Will proceed with placement of an NGT if the patient will allow it Thank you very much for the opportunity to participate in care of this patient
--- NOTE | 2024-12-31 15:23 | ESPR_ITS ---
Documentation for date of: 12/31/24 Subjective Subjective Interval history: Patient examined at bedside, no overnight events, continues to complain of abdominal pain. Has not had solid bowel movement since starting enema. Per nursing, 2 times were made to place NG tube but were unsuccessful. Patient is weary of additional attempt unless it is done by gastroenterology team. We will consult GI for NG tube placement. Monitor for bowel movements. Stroke workup has been negative. Most likely dizziness is secondary to BPPV will continue meclizine. Continue Coreg 3.125 mg twice daily in setting of heart failure. NG tube on LIS once placed. Repeat KUB prominent ileus. Aspiration precautions and HOB elevation 45 degrees. Exam Vital Signs Temp Pulse Resp BP Pulse Ox O2 Del Method 98.2 F 104 H 19 107/84 90 L Room Air 12/31/24 12:00 12/31/24 12:00 12/31/24 12:00 12/31/24 12:00 12/31/24 12:12/31/24 12:00 Narrative Exam GENERAL APPEARANCE: middle age male, distress from distension, burping HEENT: NC, AT. MMM. EOMI, clear conjunctiva, oropharynx clear. NECK: Supple without lymphadenopathy. No stiffness or restricted ROM. HEART: Normal rate and regular rhythm, normal S1/S2, no m/r/g LUNGS: CTAB, moving air well. No crackles or wheezes are heard. ABDOMEN: markedly distended tympaniic with hypoactive bowel sounds heard. BACK: No CVAT, no obvious deformity. EXTREMITIES: Without cyanosis, clubbing or edema. NEUROLOGICAL: Grossly nonfocal. Alert and oriented, moving all 4 extremities. CN appear grossly intact. Skin: Warm and dry without any rash. Pscyh;appropriate mood and affect Objective Labs 12/30/24 04:44 12/30/24 04:44 Labs: Laboratory Results - last 24 hr 12/31/24 05:45 Phosphorus 3.3 Magnesium 1.8 Quality Measures Quality Measures VTE prophylaxis (heparin sc) and stroke Suspected type of Stroke: Non Acute Tenecteplase given: Reason(s) Tenecteplase not given: Outside the time window not given Rehab services: PT evaluation ordered and Speech Language Pathology eval ordered VTE Prophylaxis: pharmaceutical Antithrombotic by day 2:: not indicated (describe) Statin ordered: <75 y/o high intensity dose Anticoagulation ordered for A-fib or flutter (current or hx): not indicated Assessment & Plan Assessment Current Active Medications: Generic Name Dose Route Start Last Admin Trade Name Max PRN Reason Stop Dose Admin Acetaminophen 650 mg 12/27/24 16:47 12/29/24 17:40 Acetaminophen 325 Mg Tablet PO 01/26/25 16:46 650 mg Q6H PRN Administration Fever >101.5 Acetaminophen 650 mg 12/27/24 16:47 12/30/24 18:07 Acetaminophen 325 Mg Tablet PO 01/26/25 16:46 650 mg Q6H PRN Administration PAIN SCALE 1-3 (mild Atorvastatin Calcium 40 mg 12/29/24 21:00 12/30/24 20:21 Atorvastatin Calcium 20 Mg Tablet PO 01/28/25 20:59 40 mg HS RICK Administration Carvedilol 3.125 mg 12/29/24 09:50 12/31/24 08:30 Carvedilol 3.125 Mg Tablet PO 01/28/25 09:49 3.125 mg BIDWM RICK Administration Heparin Sodium (Porcine) 5,000 unit 12/28/24 21:00 12/31/24 08:26 Heparin Sod Inj 5000 Unit/Ml Vial SC 01/11/25 20:59 5,000 unit Q12HR RICK Administration Protocol Lactated Ringer's 1,000 mls @ 85 mls/hr 12/30/24 15:11 12/31/24 14:32 Lactated Ringers IV 01/29/25 15:10 85 mls/hr .[id number] RICK Administration Labetalol HCl 10 mg 12/27/24 16:59 Labetalol Inj 5 Mg/Ml Vial 20 Ml IVP Q15M PRN HIGH BP Lidocaine 1 patch 12/30/24 08:25 12/30/24 08:33 Lidocaine 5% 1 Patch TOP 01/29/25 08:24 1 patch UD PRN Administration PAIN Protocol Meclizine HCl 25 mg 12/29/24 09:49 12/30/24 18:15 Meclizine Hcl 25 Mg Tablet PO 01/28/25 09:48 25 mg TID PRN Administration DIZZINESS Multivitamins 1 tab 12/28/24 12:30 12/31/24 08:30 Multivitamins Tablet PO 01/27/25 12:29 1 tab QDAY RICK Administration Ondansetron HCl 4 mg 12/27/24 14:46 Ondansetron Inj 2 Mg/Ml Inj 2 Ml IVP 01/26/25 14:45 Q4HR PRN NAUSEA OR VOMITING Protocol Simethicone 80 mg 12/28/24 19:24 12/30/24 18:07 Simethicone 80 Mg Chew PO 01/27/25 19:23 80 mg QID PRN Administration GAS Thiamine HCl 100 mg 12/28/24 12:30 12/31/24 08:31 Thiamine 100 Mg Tablet PO 01/27/25 12:29 100 mg QDAY RICK Administration Plan Patient is a 54-year-old male with a medical history of chronic lower back pain on as needed [place] and muscle relaxant, alcohol use, and obesity presents to [facility] emergency department on 12/27/2024 with chief complaint of dizziness and weakness. Patient admitted for CVA, ruled out, echo with 40-45% EF, started on GDMT, suspect BPPV as source of dizziness that persists, new onset colonic ileus with ng tube on LIS. #Colonic ileus #Constipation Likely secondary to Percocet use due to chronic back pain. Stated that his last BM was few days before admission. Denies solid BM, only liquid contents. No BM after giving water enema. Per nursing, 2 times were made to place NG tube but were unsuccessful. Patient is weary of additional attempt unless it is done by gastroenterology team. We will consult GI for NG tube placement. Monitor for bowel movements. KUB with colonic ileus pattern with distended small bowel. -consult GI for NG tube placement -HOB elevation 45 degress -aspiration precautions -NG LIS once placed -NPO -maintinence LR 80cc/hr - Pain control with IV analgesics - Zofran - Monitor I/Os #Dizziness likely related to Possible BPPV/brainstem TIA/vertebrobasilar insufficiency #HFmEF, 45% #Stroke, ruled out -MRI brain showed no acute infarction. CT brain showed hypodensity in cerebellar hemisphere likely over read. Echocardiogram showed EF 40-45% on GDMT Reassurance given to the family as stroke was ruled out on 12/29 -neurology consulted, appreciate recs -recommend outpatient f/u with ENT - atorvastatin 40 mg p.o. at bedtime. -Meclizine 25 mg daily as needed for dizziness -Coreg 3.125 mg BID #Electrolyte abnormalities -Replete as needed # Alcohol use disorder #Anxiety Patient has significant history of alcohol use, Urine etoh negative. He reports his last drink was 5 days prior to admission, He denies being hospitalized for alcohol with drawl in the past. - thiamine 100mg daily - start multivitamine qd # Transaminitis- improving - On admission AST 174, ALT 142, ALP 130 - Most likely secondary to alcohol use - Plan: Avoid hepatotoxic agents and hepatically dose medications. Counseled patient on alcohol cessation. Continue to trend LFTs daily. #Chronic back pain - Plan: Secondary to injury at work. He takes as needed [place] once a week at home. - Lidocane 5% patch prn -hold any opioids in setting of ileus # Elevated anion gap- resolved Health maintenance: Dispo: med surg, NG tube for ileus and constipation tx FEN: NPO DVT prophylaxis: Subcu heparin CODE STATUS: Full code The patient's management plan was discussed with my attending physician Dr. Ontiveros. Alexia Weldon, PGY-2 Attending Provider Attestation/Addendum I have discussed and was present for the essential components of the history, physical examination, diagnosis, and treatment plan with the resident. I agree with the patient's care as documented by the resident and amended herein by me. Jean Paul Ontiveros DO. Although this document has been carefully reviewed, there may still be some phonetic and other typographical errors. These errors are purely grammatical due to imperfections in the software program and should not be construed in any way to compromise the substance of the patient's medical care during this visit.
--- NOTE | 2024-12-31 15:57 | PC.SS ---
SS follow up note; Patient is needing to have bowl movement. Patient will possibly discharge home tomorrow.
--- NOTE | 2024-12-31 16:25 | ESPR_ITS ---
Documentation for date of: 12/31/24 Subjective Subjective Interval history: 12/30/2024: Patient was seen and examined at the bedside. No acute overnight events were reported. Patient was found to have moderate abdominal distention which was confirmed with KUB which showed colonic ileus. He reported that he walked with nurse and dizziness has markedly improved. Will recommend to continue meclizine which seems to be helpful. Patient has been n.p.o. and NG tube has been placed by primary team due to colonic ileus. 12/31/2024: Patient was seen and examined at the bedside. Patient stated that dizziness has improved.. Vitals were stable.He did not had a bowel movement post enema. NG tube will be placed with GI consultation. Primary team is following with GI for colonic ileus workup. Exam Vital Signs Temp Pulse Resp BP Pulse Ox O2 Del Method 98.2 F 104 H 19 107/84 90 L Room Air 12/31/24 12:00 12/31/24 12:00 12/31/24 12:00 12/31/24 12:00 12/31/24 12:12/31/24 12:00 Narrative Exam GENERAL APPEARANCE: AxOx4, generally well-appearing male constantly burping HEENT: NC, AT. MMM. EOMI, clear conjunctiva, oropharynx clear. NECK: Supple without lymphadenopathy. No stiffness or restricted ROM. HEART: Normal rate and regular rhythm, normal S1/S2, no m/r/g LUNGS: CTAB, moving air well. No crackles or wheezes are heard. ABDOMEN: Soft, markedly distended tympaniic with hypoactive bowel sounds heard. BACK: No CVAT, no obvious deformity. EXTREMITIES: Without cyanosis, clubbing or edema. NEUROLOGICAL: Grossly nonfocal. Alert and oriented, moving all 4 extremities. CN not formally tested but appear grossly intact. Observed to ambulate with normal gait. Skin: Warm and dry without any rash. Pscyh;appropriate mood and affect Objective Labs 12/30/24 04:44 12/30/24 04:44 Labs: Laboratory Results - last 24 hr 12/31/24 05:45 Phosphorus 3.3 Magnesium 1.8 Quality Measures Quality Measures VTE prophylaxis (heparin sc) and stroke Suspected type of Stroke: Non Acute Tenecteplase given: Reason(s) Tenecteplase not given: Outside the time window not given Rehab services: PT evaluation ordered VTE Prophylaxis: not indicated Antithrombotic by day 2:: not indicated (describe) Statin ordered: <75 y/o high intensity dose Anticoagulation ordered for A-fib or flutter (current or hx): not indicated Assessment & Plan Assessment Current Active Medications: Generic Name Dose Route Start Last Admin Trade Name Freq PRN Reason Stop Dose Admin Acetaminophen 650 mg 12/27/24 16:47 12/29/24 17:40 Acetaminophen 325 Mg Tablet PO 01/26/25 16:46 650 mg Q6H PRN Administration Fever >101.5 Acetaminophen 650 mg 12/27/24 16:47 12/30/24 18:07 Acetaminophen 325 Mg Tablet PO 01/26/25 16:46 650 mg Q6H PRN Administration PAIN SCALE 1-3 (mild Atorvastatin Calcium 40 mg 12/29/24 21:00 12/30/24 20:21 Atorvastatin Calcium 20 Mg Tablet PO 01/28/25 20:59 40 mg HS RICK Administration Carvedilol 3.125 mg 12/29/24 09:50 12/31/24 08:30 Carvedilol 3.125 Mg Tablet PO 01/28/25 09:49 3.125 mg BIDWM RICK Administration Heparin Sodium (Porcine) 5,000 unit 12/28/24 21:00 12/31/24 08:26 Heparin Sod Inj 5000 Unit/Ml Vial SC 01/11/25 20:59 5,000 unit Q12HR RICK Administration Protocol Lactated Ringer's 1,000 mls @ 85 mls/hr 12/30/24 15:11 12/31/24 14:32 Lactated Ringers IV 01/29/25 15:10 85 mls/hr .[id number] RICK Administration Labetalol HCl 10 mg 12/27/24 16:59 Labetalol Inj 5 Mg/Ml Vial 20 Ml IVP Q15M PRN HIGH BP Lidocaine 1 patch 12/30/24 08:25 12/30/24 08:33 Lidocaine 5% 1 Patch TOP 01/29/25 08:24 1 patch UD PRN Administration PAIN Protocol Meclizine HCl 25 mg 12/29/24 09:49 12/30/24 18:15 Meclizine Hcl 25 Mg Tablet PO 01/28/25 09:48 25 mg TID PRN Administration DIZZINESS Multivitamins 1 tab 12/28/24 12:30 12/31/24 08:30 Multivitamins Tablet PO 01/27/25 12:29 1 tab QDAY RICK Administration Ondansetron HCl 4 mg 12/27/24 14:46 Ondansetron Inj 2 Mg/Ml Inj 2 Ml IVP 01/26/25 14:45 Q4HR PRN NAUSEA OR VOMITING Protocol Simethicone 80 mg 12/28/24 19:24 12/30/24 18:07 Simethicone 80 Mg Chew PO 01/27/25 19:23 80 mg QID PRN Administration GAS Thiamine HCl 100 mg 12/28/24 12:30 12/31/24 08:31 Thiamine 100 Mg Tablet PO 01/27/25 12:29 100 mg QDAY RICK Administration Plan This patient is a 54-year-old male with past medical history of chronic low back pain on [place] and muscle relaxant, alcohol use, and obesity presented to the ED on 12/27/2024 with chief complaint of dizziness and weakness. Stroke has been ruled out. Suspected BPPV as source of dizziness. #Dizziness likely related to Possible BPPV/brainstem TIA/vertebrobasilar insufficiency #Stroke, ruled out - MRI brain showed no acute infarction. CT brain showed hypodensity in cerebellar hemisphere likely over read. Echocardiogram showed EF 40-45% on GDMT Reassurance given to the family as stroke was ruled out on 12/29 Vitamin D normal, vitamin B12 1531 Plan: Continue statin therapy as liver functions improving Platelets improving Meclizine 25 mg daily as needed for dizziness Continue Coreg 3.25 mg twice daily Correct electrolytes including potassium could be attributing to the weakness Will benefit from outpatient physical therapy for balancing exercises if persist #Obesity Plan: Recommended to have sleep studies Recommended CPAP at night Lifestyle changes with diet and exercise #Colonic ileus likely due to chronic opiod use #Intractable hypokalemia #Transaminitis #Thrombocytopenia #Chronic constipation #Alcohol use disorder #Chronic back pain on [place] Rest of the management as per primary care team. Plan of care discussed with neurologist, Dr Flores Cruz MD, PGY 3
[2024-12-31] MEDS: ATORVASTATIN CALCIUM 20 MG TABLET 40 MG PO (20:16)
--- NOTE | 2024-12-31 21:26 | PC.NURSE ---
pt complaining of 8/10 back pain despite having PRN tylenol at 1800 and a lidocaine patch. notified Dr Galvez, new order received.
[2024-12-31] MEDS: HYDROcodone/APAP 5/325 TABLET 1 TAB PO (21:33)
--- NOTE | 2024-12-31 23:48 | XR_ITS ---
Examination: AP chest single view Technique one AP portable upright chest single view Date and time: December 31, 2024, 11:55 PM, comparison 12/30/2024. Indications: Orogastric tube placement. Findings: Orogastric tube is coiled in stomach Significant air distended colon Lungs are clear Impression: Orogastric tube is coiled in the stomach
--- NOTE | 2024-12-31 23:49 | XR_ITS ---
Examination: Abdomen AP single view Technique: AP portable supine abdomen, single view Exam date and time: December 31, 2024, 11:56 PM Indications: Abdominal distention this week. Findings: Prominently air distended colon There are air distended small bowel loops No free air Osseous structures intact Impression: Prominent colonic ileus Milder small bowel ileus
[2025-01-01] VITALS (10 sets, daily range): BP systolic 112–129; BP diastolic 83–94; PULSE 78–94; RESP 16–18; TEMP 36.1–36.4; O2SAT 94–98; BMI 34.4
[2025-01-01] MEDS: RINGERS LACTATED 1000 ML 1,000 ML 85 ML IV ×2 (01:53→13:22)
[2025-01-01 05:58] LABS: Basophils # (Auto) 0.1 Thou/mm3 (0.0-0.2); Basophils % (Auto) 1 % (0-2.5); Eosinophils # (Auto) 0.1 Thou/mm3 (0.0-0.5); Eosinophils % (Auto) 2 % (0-10); Hematocrit 39.9 % (41.0-53.0); Hemoglobin 14.2 g/dL (13.5-16.0); Immature Granulocytes Auto 0.02 Thou/mm3 (0.00-0.00); Lymphocytes # (Auto) 0.9 Thou/mm3 (1.0-4.8); Lymphocytes % (Auto) 16 % (10-50); Mean Corpuscular HGB Conc 35.6 g/dl (31.0-37.0); Mean Corpuscular Hemoglobin 32.5 pg (25.0-35.0); Mean Corpuscular Volume 91 fL (80-100); Monocytes # (Auto) 1.6 Thou/mm3 (0.0-0.8); Monocytes % (Auto) 28 % (0-12); Neutrophils # (Auto) 3.0 Thou/mm3 (1.8-7.7); Neutrophils % (Auto) 52 % (37-80); Nucleated Red Blood Cell # 0.00 Thou/mm3 (0.00-0.00); Nucleated Red Blood Cell % 0 /100 WBC (0); Platelet Count 178 Thou/mm3 (140-440); RDW Standard Deviation 45.6 fL (35.1-43.9); Red Blood Count 4.37 Miln/mm3 (4.50-5.90); White Blood Count 5.8 Thou/mm3 (3.8-10.6)
[2025-01-01 06:30] LABS: Alanine Aminotransferase 55 U/L (10-49); Albumin, Serum 3.9 gm/dL (3.5-5.0); Albumin/Globulin Ratio 1.6 (1.2-2.2); Alkaline Phosphatase 87 U/L (46-116); Anion Gap 14 (7-16); Aspartate Amino Transferase 54 U/L (0-34); BUN/Creatinine Ratio 13 Ratio (12-20); Bilirubin,Total 0.9 mg/dL (0.3-1.2); Blood Urea Nitrogen 10 mg/dL (9-23); Calcium 9.5 mg/dL (8.3-10.6); Calcium (Corrected) 9.6 mg/dL (8.5-10.1); Carbon Dioxide 27.3 mMol/L (20.0-31.0); Chloride 93 mMol/L (98-107); Creatinine (Component) 0.8 mg/dL (0.6-1.3); Estimated Creatinine Clearance 125.4 mL/min (>60); Globulin 2.4 gm/dL (2.3-3.5); Glucose 92 mg/dL (74-106); Magnesium 2.1 mg/dL (1.6-2.6); Osmolality,Calculated 267 (275-295); Phosphorous 4.0 mg/dL (2.4-5.1); Sodium 134 mMol/L (136-145); Total Protein 6.3 gm/dL (5.7-8.2); eGFR > 60 See Note
[2025-01-01 06:37] LABS: Potassium 2.6 mMol/L (3.4-5.1)
[2025-01-01] MEDS: POTASSIUM CHL 10 mEq IVPB 10 MEQ/100 ML BAG 100 MEQ IV ×10 (06:52→22:58)
[2025-01-01] MEDS: MULTIVITAMINS TABLET 1 TAB PO (08:15)
[2025-01-01] MEDS: HEPARIN SOD INJ 5000 UNIT/ML VIAL SC ×2 (08:15→20:21)
[2025-01-01] MEDS: THIAMINE 100 MG TABLET PO (08:19)
--- NOTE | 2025-01-01 09:15 | ESPR_ITS ---
<Statement entered by Alexia Weldon MD - 01/01/25 15:51> Note reviewed, I agree with most of its contents and agree with the patient's care as documented by Dr. Pritchett. Patient examined at bedside. Per nursing, he had NG tube in his hand stating it fell out . Dr. Alves had place the tube yesterday. Denies any solid BM yet or flatulance. Significant abdominal distension still on exam. We will attempt water and saline enema. Potassium 2.6, replete electrolytes as needed. Dizziness is improving. Continue meclazine PRN. The patient's management plan was discussed with my attending physician Dr. Ontiveros. Alexia Weldon, PGY-2 Documentation for date of: 01/01/25 Subjective Subjective Interval history: Patient is a 54-year-old male with a medical history of chronic lower back pain on as needed [place] and muscle relaxant, alcohol use, and obesity presents to [facility] emergency department on 12/27/2024 with chief complaint of dizziness and weakness. He reports he has had dizziness and unsteady gait which has worsened over the last 48 hours prompting him to come to the emergency room. He denies any difficulty speaking, no facial weakness or loss of sensation. He denies a previous history of similar symptoms. He denies changes in dizziness with head movements but does seem worse from sitting to rising position. He reports he does not take any medicines at home except for pain medicines for chronic back pain. He denies taking any aspirin or NSAIDs at home. He denies any recent falls. Patient lives in [place] with family. 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 He denies a history of diabetes. Patient denies headache, vision changes, chest pain, shortness of breath, nausea/vomiting, abdominal pain, urinary symptoms, and no GI symptoms at this time. 12/28/2024: patient seen and examined at bedside pt appears slightly withdrawn/ depressed mood. Patient states that he may be withdrawing although he states that his last drink was 5 days ago. On admission UTOX and urine alcohol was negative. Stroke was ruled out on CT head and MRI and CTA head and neck, although they did note a left hypointensity the left cerebellum, no cervical spine solid exam normal [id number] normal [id number]. Started patient on thiamine and multivitamin and alcohol history patient had reported dizziness given 25 of meclizine on exam was slightly tachycardic EKG showed sinus tach. 12/29/2024: Patient seen and examined at bedside patient continues to appear slightly withdrawn and anxious he reports that he is concerned about what could be going with him given his persistent dizziness. Unclear whether patient dizziness improved with meclizine given. Dr. Masterson can perform Jami-Hallpike with no notable nystagmus. However suspect BPPV. Echocardiogram demonstrated heart failure with reduced ejection fraction of 40 to 45%, given patient would likely benefit from GDMT patient was started on Coreg 3.125 twice daily. His potassium today was 2.9 he was given 40 ME in the morning and repeated afternoon renal panel with K of 3.0 given additional 20 ME, pending updated PT note. 12/30/2024 patient seen and examined at bedside he appears to be uncomfortable with abdomen notably distended nontender however patient endorses pressure bowel sounds are hypoactive. KUB from yesterday with colonic ileus. Patient was given suppository which resulted in watery stool plan for enema and NG tube placement to low intermittent suction given increased belching and concern for aspiration risk. mild hyponatremia, 131 may be contributing to symptoms of dizziness. pt is NPO. pt has had some bits of food and drink despite being npo, brought in by family, reiterated the importance of staying npo. NG tube was placed and on XR showed coiling in the esophagus. Dr. Brown reccomend rremoving tube completely and reinserting, pt declined to have tube reinserted and was counseled on the risk of aspiration. he understood these risks and decided to continue without NG tube. will be placed on aspiration precautions, and keep head of bead at 45degrees 01/01/2025: patinet seen and examined at bedside. abdomen continues to be tense and distended, nontender, no nausea, no vomiting, he continues to have watery output, no stool yet, KUB with colonic ileus persistes. given water enema today. Will likely require manual disempaction. NG tube was placed by Dr. Alves, however this am, tube was not in place, suspect that patient pulled tube out, however he denies doing so. Dr. alves plans to place again tonight if pt is amenable. dizziness is improved continues on meclizine. Exam Vital Signs Temp Pulse Resp BP Pulse Ox O2 Del Method O2 Flow Rate 97.4 F 94 17 129/94 H 94 L Room Air 2 01/01/25 08:00 01/01/25 08:15 01/01/25 08:00 01/01/25 08:15 01/01/25 08:00 01/01/25 08:00 12/31/24 19:28 Narrative Exam Gen: A&O NAD HEENT: NCAT, EOMI, not icteric. External ears normal. No rhinorrhea. Moist mucous membranes. c/o dizziness. Neck: Supple, full range of motion, no observable masses, No meningeal sign. Lungs: No Respiratory distress. CV: sinus tachycardia , Normal S1/S2, no edema. Abdomen: rigid, tense, tympanic, hypoactive bowel sounds, notable distention. No rebound tenderness. MSK: No joint swelling, no redness. Skin: No rashes, petechiae, lesions. Normal color per patient. Neuro: Gait not assessed. (pt did ambulate with nurse using walker) nl finger nose finger, nl heel knee kelly. CN II-XII grossly intact. Psych: Appropriate for situation. slightly depressed and axious mood. Objective Labs 01/01/25 05:06 01/01/25 11:44 Labs: Laboratory Results - last 24 hr 01/01/25 05:06 WBC 5.8 RBC 4.37 L Hgb 14.2 Hct 39.9 L MCV 91 MCH 32.5 MCHC 35.6 RDW Std Deviation 45.6 H Plt Count 178 D Neut % (Auto) 52 Lymph % (Auto) 16 [place] % (Auto) 28 H Eos % (Auto) 2 Baso % (Auto) 1 Neut # (Auto) 3.0 Lymph # (Auto) 0.9 L [place] # (Auto) 1.6 H Eos # (Auto) 0.1 Baso # (Auto) 0.1 Immature Gran # (Auto) 0.02 H Absolute Nucleated RBC 0.00 Immature Gran % 0 Nucleated RBC % 0 Sodium 134 L Potassium 2.6 L* D Chloride 93 L Carbon Dioxide 27.3 Anion Gap 14 BUN 10 Creatinine 0.8 Estim Creat Clear Calc 125.4 eGFR > 60 BUN/Creatinine Ratio 13 Glucose 92 Calculated Osmolality 267 L Calcium 9.5 Corrected Calcium 9.6 Phosphorus 4.0 Magnesium 2.1 Total Bilirubin 0.9 AST 54 H ALT 55 H Alkaline Phosphatase 87 Total Protein 6.3 Albumin 3.9 Globulin 2.4 Albumin/Globulin Ratio 1.6 Quality Measures Quality Measures VTE prophylaxis (heparin sc) and stroke Suspected type of Stroke: Non Acute Tenecteplase given: Reason(s) Tenecteplase not given: Outside the time window not given Rehab services: PT evaluation ordered and Speech Language Pathology eval ordered VTE Prophylaxis: pharmaceutical Antithrombotic by day 2:: not indicated (describe) Statin ordered: <75 y/o high intensity dose Anticoagulation ordered for A-fib or flutter (current or hx): not indicated Assessment & Plan Assessment Current Active Medications: Generic Name Dose Route Start Last Admin Trade Name Freq PRN Reason Stop Dose Admin Acetaminophen 650 mg 12/27/24 16:47 12/29/24 17:40 Acetaminophen 325 Mg Tablet PO 01/26/25 16:46 650 mg Q6H PRN Administration Fever >101.5 Acetaminophen 650 mg 12/27/24 16:47 12/30/24 18:07 Acetaminophen 325 Mg Tablet PO 01/26/25 16:46 650 mg Q6H PRN Administration PAIN SCALE 1-3 (mild Atorvastatin Calcium 40 mg 12/29/24 21:00 12/31/24 20:16 Atorvastatin Calcium 20 Mg Tablet PO 01/28/25 20:59 40 mg HS RICK Administration Carvedilol 3.125 mg 12/29/24 09:50 01/01/25 08:15 Carvedilol 3.125 Mg Tablet PO 01/28/25 09:49 3.125 mg BIDWM RICK Administration Heparin Sodium (Porcine) 5,000 unit 12/28/24 21:00 01/01/25 08:15 Heparin Sod Inj 5000 Unit/Ml Vial SC 01/11/25 20:59 5,000 unit Q12HR RICK Administration Protocol Lactated Ringer's 1,000 mls @ 85 mls/hr 12/30/24 15:11 01/01/25 01:53 Lactated Ringers IV 01/29/25 15:10 85 mls/hr .[id number] RICK Administration Potassium Chloride 10 meq in 100 mls @ 100 mls/hr 01/01/25 06:45 01/01/25 08:14 Kcl Ivpb IV 01/01/25 10:44 100 mls/hr Q1H RICK Administration Labetalol HCl 10 mg 12/27/24 16:59 Labetalol Inj 5 Mg/Ml Vial 20 Ml IVP Q15M PRN HIGH BP Lidocaine 1 patch 12/30/24 08:25 12/30/24 08:33 Lidocaine 5% 1 Patch TOP 01/29/25 08:24 1 patch UD PRN Administration PAIN Protocol Meclizine HCl 25 mg 12/29/24 09:49 12/30/24 18:15 Meclizine Hcl 25 Mg Tablet PO 01/28/25 09:48 25 mg TID PRN Administration DIZZINESS Multivitamins 1 tab 12/28/24 12:30 01/01/25 08:15 Multivitamins Tablet PO 01/27/25 12:29 1 tab QDAY RICK Administration Ondansetron HCl 4 mg 12/27/24 14:46 Ondansetron Inj 2 Mg/Ml Inj 2 Ml IVP 01/26/25 14:45 Q4HR PRN NAUSEA OR VOMITING Protocol Simethicone 80 mg 12/28/24 19:24 12/30/24 18:07 Simethicone 80 Mg Chew PO 01/27/25 19:23 80 mg QID PRN Administration GAS Thiamine HCl 100 mg 12/28/24 12:30 01/01/25 08:19 Thiamine 100 Mg Tablet PO 01/27/25 12:29 100 mg QDAY RICK Administration Plan Patient is a 54-year-old male with a medical history of chronic lower back pain on as needed [place] and muscle relaxant, alcohol use, and obesity presents to [facility] emergency department on 12/27/2024 with chief complaint of dizziness and weakness. Patient admitted for CVA, ruled out, echo with 40-45% EF, started on GDMT, suspect BPPV as source of dizziness well controlled with meclizine. now with colonic ileus with NG tube removed by patient will reattempt to place with Dr. Alves. #Colonic ileus #Constipation Likely secondary to Percocet use due to chronic back pain. Stated that his last BM was few days before admission. Denies solid BM, only liquid contents. No BM after giving water enema. Per nursing, 2 times were made to place NG tube but were unsuccessful. Patient is weary of additional attempt unless it is done by gastroenterology team. We will consult GI for NG tube placement. Monitor for bowel movements. KUB with colonic ileus pattern with distended small bowel. water enema today without BM, - plan for manual disempation tomorrow. -consult GI for NG tube placement -HOB elevation 45 degress -aspiration precautions -NPO -maintinence d5w with LR 85 cc/hr - Pain control with IV analgesics - Zofran - Monitor I/Os #Dizziness likely related to Possible BPPV/brainstem TIA/vertebrobasilar insufficiency #HFrEF, 45% #Stroke, ruled out -MRI brain showed no acute infarction. CT brain showed hypodensity in cerebellar hemisphere likely over read. Echocardiogram showed EF 40-45% on GDMT Reassurance given to the family as stroke was ruled out on 12/29 -neurology consulted, appreciate recs -recommend outpatient f/u with ENT - atorvastatin 40 mg p.o. at bedtime. - Meclizine 25 mg daily as needed for dizziness #Electrolyte abnormalities #mild hyponatremia #Hypokalemia - given 40 PO, and 80 IV total - f/u 20:00 renal panel - Replete as needed # Alcohol use disorder #Anxiety Patient has significant history of alcohol use, Urine etoh negative. He reports his last drink was 5 days prior to admission, He denies being hospitalized for alcohol with drawl in the past. - thiamine 100mg daily - start multivitamine qd # Transaminitis- improving - On admission AST 174, ALT 142, ALP 130 - Most likely secondary to alcohol use - Plan: Avoid hepatotoxic agents and hepatically dose medications. Counseled patient on alcohol cessation. Continue to trend LFTs daily. #Chronic back pain - Plan: Secondary to injury at work. He takes as needed [place] once a week at home. - Lidocane 5% patch prn - hold any opioids in setting of ileus # Elevated anion gap- resolved Health maintenance: Dispo: med surg, NG tube for ileus and constipation tx FEN: NPO DVT prophylaxis: Subcu heparin CODE STATUS: Full code The patient's management plan was discussed with my attending physician Dr. Ontiveros. Alexia Weldon, PGY-2 Attending Provider Attestation/Addendum I have discussed and was present for the essential components of the history, physical examination, diagnosis, and treatment plan with the resident. I agree with the patient's care as documented by the resident and amended herein by me. Jean Paul Ontiveros DO. Although this document has been carefully reviewed, there may still be some phonetic and other typographical errors. These errors are purely grammatical due to imperfections in the software program and should not be construed in any way to compromise the substance of the patient's medical care during this visit.
[2025-01-01 12:46] LABS: Albumin, Serum 3.8 gm/dL (3.5-5.0); Anion Gap 12 (7-16); BUN/Creatinine Ratio 11 Ratio (12-20); Blood Urea Nitrogen 8 mg/dL (9-23); Calcium 9.6 mg/dL (8.3-10.6); Calcium (Corrected) 9.8 mg/dL (8.5-10.1); Carbon Dioxide 22.6 mMol/L (20.0-31.0); Chloride 96 mMol/L (98-107); Creatinine (Component) 0.7 mg/dL (0.6-1.3); Estimated Creatinine Clearance 145.8 mL/min (>60); Glucose 92 mg/dL (74-106); Osmolality,Calculated 260 (275-295); Phosphorous 3.0 mg/dL (2.4-5.1); Potassium 3.1 mMol/L (3.4-5.1); Sodium 131 mMol/L (136-145); eGFR > 60 See Note
--- NOTE | 2025-01-01 14:37 | PC.SS ---
SS follow up note; Patient is pending NG-Tube placement. Patient will discharge home when medically cleared.
--- NOTE | 2025-01-01 15:45 | PD.RESPRO ---
Documentation for date of: 01/01/25 Subjective Subjective Interval history: Patient was seen and examined at the bedside. Patient appears sleepy and tired. Patient continues to have abdominal distention with loose stools. Dizziness seems to be improving and resolving. No new acute neurological symptoms reported. Therefore, we will sign off from the patient as patient is stable from neurology standpoint. Exam Vital Signs Temp Pulse Resp BP Pulse Ox O2 Del Method O2 Flow Rate 97.4 F 82 18 112/86 H 95 Room Air 2 01/01/25 11:42 01/01/25 11:42 01/01/25 11:42 01/01/25 11:42 01/01/25 11:42 01/01/25 11:42 12/31/24 19:28 Narrative Exam GENERAL APPEARANCE: AxOx4, generally well-appearing male . sat well on NC HEENT: NC, AT. MMM. EOMI, clear conjunctiva, oropharynx clear. NECK: Supple without lymphadenopathy. No stiffness or restricted ROM. HEART: regular rate and regular rhythm, normal S1/S2, no m/r/g LUNGS: CTAB, moving air well. No crackles or wheezes are heard. ABDOMEN: Soft, markedly distended tympaniic with hypoactive bowel sounds heard. BACK: No CVAT, no obvious deformity. EXTREMITIES: Without cyanosis, clubbing or edema. NEUROLOGICAL: Grossly nonfocal. Alert and oriented, moving all 4 extremities. CN not formally tested but appear grossly intact. Observed to ambulate with normal gait. Skin: Warm and dry without any rash. Pscyh;appropriate mood and affect Objective Labs 01/01/25 05:06 01/01/25 11:44 Labs: Laboratory Results - last 24 hr 01/01/25 01/01/25 05:06 11:44 WBC 5.8 RBC 4.37 L Hgb 14.2 Hct 39.9 L MCV 91 MCH 32.5 MCHC 35.6 RDW Std Deviation 45.6 H Plt Count 178 D Neut % (Auto) 52 Lymph % (Auto) 16 [place] % (Auto) 28 H Eos % (Auto) 2 Baso % (Auto) 1 Neut # (Auto) 3.0 Lymph # (Auto) 0.9 L [place] # (Auto) 1.6 H Eos # (Auto) 0.1 Baso # (Auto) 0.1 Immature Gran # (Auto) 0.02 H Absolute Nucleated RBC 0.00 Immature Gran % 0 Nucleated RBC % 0 Sodium 134 L 131 L Potassium 2.6 L* D 3.1 L D Chloride 93 L 96 L Carbon Dioxide 27.3 22.6 Anion Gap 14 12 BUN 10 8 L Creatinine 0.8 0.7 Estim Creat Clear Calc 125.4 145.8 eGFR > 60 > 60 BUN/Creatinine Ratio 13 11 L Glucose 92 92 Calculated Osmolality 267 L 260 L Calcium 9.5 9.6 Corrected Calcium 9.6 9.8 Phosphorus 4.0 3.0 Magnesium 2.1 Total Bilirubin 0.9 AST 54 H ALT 55 H Alkaline Phosphatase 87 Total Protein 6.3 Albumin 3.9 3.8 Globulin 2.4 Albumin/Globulin Ratio 1.6 Quality Measures Quality Measures VTE prophylaxis (heparin sc) and stroke Suspected type of Stroke: Non Acute Tenecteplase given: Reason(s) Tenecteplase not given: Outside the time window not given Rehab services: PT evaluation ordered VTE Prophylaxis: pharmaceutical Antithrombotic by day 2:: not indicated (describe) Statin ordered: <75 y/o high intensity dose Anticoagulation ordered for A-fib or flutter (current or hx): not indicated Assessment & Plan Assessment Current Active Medications: Generic Name Dose Route Start Last Admin Trade Name Freq PRN Reason Stop Dose Admin Acetaminophen 650 mg 12/27/24 16:47 12/29/24 17:40 Acetaminophen 325 Mg Tablet PO 01/26/25 16:46 650 mg Q6H PRN Administration Fever >101.5 Acetaminophen 650 mg 12/27/24 16:47 12/30/24 18:07 Acetaminophen 325 Mg Tablet PO 01/26/25 16:46 650 mg Q6H PRN Administration PAIN SCALE 1-3 (mild Atorvastatin Calcium 40 mg 12/29/24 21:00 12/31/24 20:16 Atorvastatin Calcium 20 Mg Tablet PO 01/28/25 20:59 40 mg HS RICK Administration Carvedilol 3.125 mg 12/29/24 09:50 01/01/25 08:15 Carvedilol 3.125 Mg Tablet PO 01/28/25 09:49 3.125 mg BIDWM RICK Administration Heparin Sodium (Porcine) 5,000 unit 12/28/24 21:00 01/01/25 08:15 Heparin Sod Inj 5000 Unit/Ml Vial SC 01/11/25 20:59 5,000 unit Q12HR RICK Administration Protocol Lactated Ringer's 1,000 mls @ 85 mls/hr 12/30/24 15:11 01/01/25 13:22 Lactated Ringers IV 01/29/25 15:10 85 mls/hr .[id number] RICK Administration Potassium Chloride 10 meq in 100 mls @ 100 mls/hr 01/01/25 15:40 Kcl Ivpb IV 01/01/25 19:39 Q1H RICK Labetalol HCl 10 mg 12/27/24 16:59 Labetalol Inj 5 Mg/Ml Vial 20 Ml IVP Q15M PRN HIGH BP Lidocaine 1 patch 12/30/24 08:25 12/30/24 08:33 Lidocaine 5% 1 Patch TOP 01/29/25 08:24 1 patch UD PRN Administration PAIN Protocol Meclizine HCl 25 mg 12/29/24 09:49 12/30/24 18:15 Meclizine Hcl 25 Mg Tablet PO 01/28/25 09:48 25 mg TID PRN Administration DIZZINESS Multivitamins 1 tab 12/28/24 12:30 01/01/25 08:15 Multivitamins Tablet PO 01/27/25 12:29 1 tab QDAY RICK Administration Ondansetron HCl 4 mg 12/27/24 14:46 Ondansetron Inj 2 Mg/Ml Inj 2 Ml IVP 01/26/25 14:45 Q4HR PRN NAUSEA OR VOMITING Protocol Simethicone 80 mg 12/28/24 19:24 12/30/24 18:07 Simethicone 80 Mg Chew PO 01/27/25 19:23 80 mg QID PRN Administration GAS Thiamine HCl 100 mg 12/28/24 12:30 01/01/25 08:19 Thiamine 100 Mg Tablet PO 01/27/25 12:29 100 mg QDAY RICK Administration Plan This patient is a 54-year-old male with past medical history of chronic low back pain on [place] and muscle relaxant, alcohol use, and obesity presented to the ED on 12/27/2024 with chief complaint of dizziness and weakness. Stroke has been ruled out. Suspected BPPV as source of dizziness. #Dizziness likely related to Possible BPPV/brainstem TIA/vertebrobasilar insufficiency, resolved #Stroke, ruled out - MRI brain showed no acute infarction. CT brain showed hypodensity in cerebellar hemisphere likely over read. Echocardiogram showed EF 40-45% on GDMT Reassurance given to the family as stroke was ruled out on 12/29 Vitamin D normal, vitamin B12 1531 Plan: Patient is stable from neurology standpoint. Will sign off. Continue statin therapy Meclizine 25 mg daily as needed for dizziness which seems to be resolving Continue Coreg 3.25 mg twice daily Correct electrolytes including potassium could be attributing to the weakness #Obesity Plan: Recommended to have sleep studies Recommended CPAP at night Lifestyle changes with diet and exercise #Colonic ileus likely due to chronic opioid use #Intractable hypokalemia #Transaminitis #Thrombocytopenia #Chronic constipation #Alcohol use disorder #Chronic back pain on [place] Rest of the management as per primary care team. Patient is stable from neurology standpoint therefore we will sign off as dizziness has resolved. Plan of care discussed with neurologist, Dr Flores Cruz MD, PGY 3
--- NOTE | 2025-01-01 16:02 | PC.PT ---
Patient refused PT tx again today. Patient will be dc from PT services. Patient and RN made aware.
[2025-01-01] MEDS: ATORVASTATIN CALCIUM 20 MG TABLET 40 MG PO (20:20)
[2025-01-01 20:39] LABS: Albumin, Serum 4.0 gm/dL (3.5-5.0); Anion Gap 14 (7-16); BUN/Creatinine Ratio 13 Ratio (12-20); Blood Urea Nitrogen 10 mg/dL (9-23); Calcium 9.5 mg/dL (8.3-10.6); Calcium (Corrected) 9.5 mg/dL (8.5-10.1); Carbon Dioxide 24.8 mMol/L (20.0-31.0); Chloride 95 mMol/L (98-107); Creatinine (Component) 0.8 mg/dL (0.6-1.3); Estimated Creatinine Clearance 127.5 mL/min (>60); Glucose 92 mg/dL (74-106); Osmolality,Calculated 267 (275-295); Phosphorous 2.8 mg/dL (2.4-5.1); Sodium 134 mMol/L (136-145); eGFR > 60 See Note
[2025-01-01 20:44] LABS: Potassium 2.7 mMol/L (3.4-5.1)
--- NOTE | 2025-01-01 22:53 | PD.IMPROG ---
Documentation for date of: 01/01/25 Subjective Subjective Interval history: NGT placed yesterday was pulled out by the patient I have been approached by the internal medicine team to place the NGT again Exam Vital Signs Temp Pulse Resp BP Pulse Ox O2 Del Method O2 Flow Rate 97.1 F 87 17 117/91 H 97 Room Air 2 01/01/25 20:00 01/01/25 20:00 01/01/25 20:00 01/01/25 20:00 01/01/25 20:00 01/01/25 20:00 12/31/24 19:28 Objective Labs 01/01/25 05:06 01/01/25 20:11 Labs: Laboratory Results - last 24 hr 01/01/25 01/01/25 01/01/25 05:06 11:44 20:11 WBC 5.8 RBC 4.37 L Hgb 14.2 Hct 39.9 L MCV 91 MCH 32.5 MCHC 35.6 RDW Std Deviation 45.6 H Plt Count 178 D Neut % (Auto) 52 Lymph % (Auto) 16 [place] % (Auto) 28 H Eos % (Auto) 2 Baso % (Auto) 1 Neut # (Auto) 3.0 Lymph # (Auto) 0.9 L [place] # (Auto) 1.6 H Eos # (Auto) 0.1 Baso # (Auto) 0.1 Immature Gran # (Auto) 0.02 H Absolute Nucleated RBC 0.00 Immature Gran % 0 Nucleated RBC % 0 Sodium 134 L 131 L 134 L Potassium 2.6 L* D 3.1 L D 2.7 L* Chloride 93 L 96 L 95 L Carbon Dioxide 27.3 22.6 24.8 Anion Gap 14 12 14 BUN 10 8 L 10 Creatinine 0.8 0.7 0.8 Estim Creat Clear Calc 125.4 145.8 127.5 eGFR > 60 > 60 > 60 BUN/Creatinine Ratio 13 11 L 13 Glucose 92 92 92 Calculated Osmolality 267 L 260 L 267 L Calcium 9.5 9.6 9.5 Corrected Calcium 9.6 9.8 9.5 Phosphorus 4.0 3.0 2.8 Magnesium 2.1 Total Bilirubin 0.9 AST 54 H ALT 55 H Alkaline Phosphatase 87 Total Protein 6.3 Albumin 3.9 3.8 4.0 Globulin 2.4 Albumin/Globulin Ratio 1.6 Impressions Impression: Abdominal distention will attempt to place the NGT again tonight Assessment & Plan Time Spent With Patient Time: Total time spent is greater than 50% in coordination of care (as documented) at patient's floor/unit and/or counseling patient:
--- NOTE | 2025-01-01 23:50 | PD.EVENT ---
Documentation for date of: 01/01/25 Event Note Event Note: Meant to place the NGT Patient refused And he feels like he is going to sign out tomorrow morning to home and he does not want the NGT
[2025-01-02] VITALS: BP 133/88; PULSE 78; RESP 17; TEMP 36.1; O2SAT 97
[2025-01-02] MEDS: POTASSIUM CHL 10 mEq IVPB 10 MEQ/100 ML BAG 100 MEQ IV ×2 (00:01→01:10)
[2025-01-02] MEDS: DEXTROSE 5%-LACTATED RINGERS 1,000 ML 85 ML IV (01:10)
[2025-01-02 03:28] LABS: Basophils # (Auto) 0.0 Thou/mm3 (0.0-0.2); Basophils % (Auto) 1 % (0-2.5); Eosinophils # (Auto) 0.1 Thou/mm3 (0.0-0.5); Eosinophils % (Auto) 1 % (0-10); Hematocrit 40.0 % (41.0-53.0); Hemoglobin 14.0 g/dL (13.5-16.0); Immature Granulocytes Auto 0.02 Thou/mm3 (0.00-0.00); Lymphocytes # (Auto) 1.0 Thou/mm3 (1.0-4.8); Lymphocytes % (Auto) 17 % (10-50); Mean Corpuscular HGB Conc 35.0 g/dl (31.0-37.0); Mean Corpuscular Hemoglobin 32.3 pg (25.0-35.0); Mean Corpuscular Volume 92 fL (80-100); Monocytes # (Auto) 1.5 Thou/mm3 (0.0-0.8); Monocytes % (Auto) 25 % (0-12); Neutrophils # (Auto) 3.2 Thou/mm3 (1.8-7.7); Neutrophils % (Auto) 56 % (37-80); Nucleated Red Blood Cell # 0.00 Thou/mm3 (0.00-0.00); Nucleated Red Blood Cell % 0 /100 WBC (0); Platelet Count 225 Thou/mm3 (140-440); RDW Standard Deviation 46.7 fL (35.1-43.9); Red Blood Count 4.34 Miln/mm3 (4.50-5.90); White Blood Count 5.7 Thou/mm3 (3.8-10.6)
[2025-01-02 03:45] LABS: Alanine Aminotransferase 43 U/L (10-49); Albumin, Serum 3.9 gm/dL (3.5-5.0); Albumin/Globulin Ratio 1.7 (1.2-2.2); Alkaline Phosphatase 82 U/L (46-116); Anion Gap 13 (7-16); Aspartate Amino Transferase 55 U/L (0-34); BUN/Creatinine Ratio 11 Ratio (12-20); Bilirubin,Total 0.7 mg/dL (0.3-1.2); Blood Urea Nitrogen 9 mg/dL (9-23); Calcium 9.5 mg/dL (8.3-10.6); Calcium (Corrected) 9.6 mg/dL (8.5-10.1); Carbon Dioxide 24.3 mMol/L (20.0-31.0); Chloride 97 mMol/L (98-107); Creatinine (Component) 0.8 mg/dL (0.6-1.3); Estimated Creatinine Clearance 127.5 mL/min (>60); Globulin 2.3 gm/dL (2.3-3.5); Glucose 97 mg/dL (74-106); Magnesium 2.0 mg/dL (1.6-2.6); Osmolality,Calculated 266 (275-295); Phosphorous 2.4 mg/dL (2.4-5.1); Potassium 3.3 mMol/L (3.4-5.1); Sodium 134 mMol/L (136-145); Total Protein 6.2 gm/dL (5.7-8.2); eGFR > 60 See Note
[2025-01-02 04:00] VITALS: BP 118/84; PULSE 82; RESP 18; TEMP 36.1; O2SAT 95
[2025-01-02 06:00] VITALS: BMI 34.0
--- NOTE | 2025-01-02 08:11 | PC.NURSE ---
pt is now refusing having his vital signs taken
[2025-01-02] MEDS: HEPARIN SOD INJ 5000 UNIT/ML VIAL SC (09:55)
[2025-01-02] MEDS: MULTIVITAMINS TABLET 1 TAB PO (09:55)
[2025-01-02] MEDS: THIAMINE 100 MG TABLET PO (09:55)
[2025-01-02 10:04] VITALS: BP 123/82; PULSE 85
[2025-01-02 10:18] VITALS: BP 123/82; PULSE 89; RESP 16
[2025-01-02 12:00] VITALS: BP 130/85; PULSE 89; RESP 19; TEMP 36.1; O2SAT 96
--- NOTE | 2025-01-02 12:05 | ESDS_ITS ---
<Statement entered by Kellie Tanner MD - 01/03/25 17:38> I discussed with and supervised the promotions intern physician who took care of this patient. I personally saw and examined the patient and discussed the assessment and plan with the entire medicine team, including my attending Dr. Ontiveros, I agree with most of the assessment and plan as documented below Kellie Tanner M.D. PGY-3 Planned Discharge Date 01/02/25 DS: Providers Provider Date of admission: 12/27/24 16:47 Primary care physician: Alan Torre MD Admitting Provider: Chuy Lancaster MD Attending Provider on Admission: Chuy Lancaster MD Consults: 12/27/24 14:46 Consult to Neurology / Tele-Neurology Routine Comment: Consulting Provider: [facility] 12/27/24 16:51 Consult to Neurology / Tele-Neurology Stat Comment: CVA rule out Consulting Provider: Dinh Tanner 12/27/24 17:00 Referral Physical Therapy Routine Comment: Physician Instructions: 12/31/24 11:59 Consult to Gastroenterology Routine Comment: NG tube placement Consulting Provider: Wade Restrepo Instructions: Patient developed ileus while hospitalized. Two attempts were made to place tube but unsuccessful. Requesting assistance by GI team for NG tube. Thank you Attending Provider on DC: Chuy Lancaster MD Discharging Provider: Chuy Lancaster MD DS: Diagnosis Problem List Completed Was Problem List Reviewed/Reconciled?: Yes Hospital Course Hospital Course Hospital course: Reason for Admission Dizziness and weakness, admitted for stroke rule-out. Hospital Course The patient is a 54-year-old man with a past medical history of chronic low back pain, alcohol use disorder, and obesity, who presented with dizziness and ge neralized weakness. He was admitted for stroke rule-out. Neuroimaging, including CT, CTA, and MRI, was negative for acute infarction. Neurology was consulted and suspected benign paroxysmal positional vertigo (BPPV) as the etiology of his dizziness. He was started on meclizine 25 mg TID PRN with improvement in symptoms. and thiamine and multivitamin given AUD. During the admission, he was also found to have newly diagnosed heart failure with reduced ejection fraction (HFrEF), with echocardiogram showing LVEF 40?45%. He was initiated on guideline-directed medical therapy (GDMT). His hospital course was complicated by the development of colonic ileus. He was made NPO and a NG-tube was placed for decompression but was subsequently removed by the patient. He remained NPO and was managed conservatively with enemas. Over the following days, his ileus resolved, and he resumed normal bowel movements. At the time of discharge, the patient was hemodynamically stable, tolerating oral intake, ambulating, and his dizziness had improved. He was discharged home with instructions for close outpatient follow-up. Pertinent Labs/Studies * Neuroimaging (CT/CTA/MRI brain):Negative for acute hemorrhage, mass effect or midline shift * Echocardiogram: LVEF 40?45% consistent with HFrEF * Abdominal imaging: Findings consistent with colonic ileus (resolved) Condition on Discharge Stable, afebrile, dizziness improved, tolerating oral intake, normal bowel movements, safe for discharge. Discharge Medications * Meclizine 25 mg PO TID PRN dizziness * GDMT for HFrEF : Carvedilol 3.125 mg, lisinopril 5 mg qd * Atorvastatin 40 mg qhs for stroke prevention. * Continue home medications as appropriate Follow-Up / Recommendations * Follow up with cardiology for ongoing management of newly diagnosed HFrEF and initiation of more GDMT * Follow up with primary care physician for monitoring and coordination of care * ENT outpatient evaluation for BPPV and management of dizziness * Monitor bowel function and return to ED if recurrent abdominal distension, pain, or obstipation Disposition Discharged home in stable condition. Plan discussed with Dr Tanner, and Dr. Weston Pritchett MD PGY1 Status at Discharge Functional status at discharge: independent ambulation Time Spent with Patient Time attestation: Total time spent providing and/or coordinating discharge services: Time spent: Greater than 30 minutes Exam Vital Signs Temp Pulse Resp BP Pulse Ox O2 Del Method O2 Flow Rate 96.9 F 89 16 123/82 95 Room Air 2 01/02/25 04:00 01/02/25 10:18 01/02/25 10:18 01/02/25 10:01/02/25 04:00 01/02/25 10:12/31/24 19:28 Narrative Exam GENERAL APPEARANCE: AxOx4, generally well-appearing male . HEENT: NC, AT. MMM. EOMI, clear conjunctiva, oropharynx clear. NECK: Supple without lymphadenopathy. No stiffness or restricted ROM. HEART: regular rate and regular rhythm, normal S1/S2, no m/r/g LUNGS: CTAB, moving air well. No crackles or wheezes are heard. ABDOMEN: Soft, decreased distended with active bowel sounds heard. BACK: No CVAT, no obvious deformity. EXTREMITIES: Without cyanosis, clubbing or edema. NEUROLOGICAL: Grossly nonfocal. Alert and oriented, moving all 4 extremities. Skin: Warm and dry without any rash. Pscyh;appropriate mood and affect Discharge Plan Plan Patient Disposition: HOME (Self Care) Patient condition on transfer: Stable Prescriptions/Referrals Prescriptions/Med Rec: New atorvastatin 20 mg Tablet 40 mg PO HS 30 Days Qty: 60 0RF carvedilol 3.125 mg Tablet 3.125 mg PO BIDWM 30 Days Qty: 60 0RF meclizine 25 mg Tablet 25 mg PO TID PRN (Reason: Dizziness) 30 Days Qty: 90 0RF simethicone 80 mg Tablet,Chewable 80 mg PO BID 30 Days Qty: 60 0RF lisinopril 5 mg tablet 5 mg PO QDAY 30 Days Qty: 30 0RF Continued oxycodone-acetaminophen 10-325 mg tablet 1 tab PO Q6H PRN (Reason: pain) Referrals: Alan Torre MD [Primary Care Provider, Family Practice] Patient/Caregiver Discharge Instructions Other Discharge Activity Instructions:: Continue taking Coreg as management of mild heart failure. Continue taking atorvastatin as treatment for future stroke prevention. Take Meclizine 25 mg as needed for dizziness. Use simethicone if you feel bloated. Follow up with PCP in 1-2 weeks. Education Materials: ED Constipation (Adult), ED Dizziness, Uncertain Cause Print Language: Armenian Stand Alone Forms: [email or web address] Award Info., Patient Portal Info Letter Discharge Order Discharge Orders: Discharge (Routine); Ordered 01/02/25 Ordered By: Alexia Weldon Quality Discharge Quality Measures VTE prophylaxis Attestestation Attestation I have discussed and was present for the essential components of the discharge history, physical examination, diagnosis, and discharge treatment plan with the resident. I agree with the patient's discharge care as documented by the resident and amended herein by me. Jean Pual Ontiveros, . The patient understood all discharge instructions, all questions were answered satisfactorily. The patient was instructed to return to the Emergency Department is symptoms worsened or persisted. Patient discharged on GDMT due to an EF of 40% and demonstrated on echocardiogram, Coreg and lisinopril for now, patient can likely be switched to Entresto and have an SGLT2 added in the future in the outpatient setting if blood pressure tolerates. Patient was having bowel movements at time of discharge, he did refuse NG tube for ileus however his bili was markedly improved the day of discharge, soft and as stated, he was having bowel movements. See resident note for additional details however the patient was stable, afebrile, tolerating p.o. intake and ambulatory at time of discharge home. Although this document has been carefully reviewed, there may still be some phonetic and other typographical errors. These errors are purely grammatical due to imperfections in the software program and should not be construed in any way to compromise the substance of the patient's medical care during this visit.
== END 2025-01-02 12:42 | disposition home or self-care (01) | DRG 149 ==
LOC: SERX 14:29 → SERHOLD 17:21 → S2NX 18:39 → S3NX 12-28 18:16
PROVIDERS: Nurse Practitioner Family; Psychiatry & Neurology Neurology; Admitting Provider Student in an Organized Health Care Education/Training Program; Emergency Provider Family Medicine; PCP Family Medicine; Visit Provider Student in an Organized Health Care Education/Training Program
DX: H81.10 Benign paroxysmal vertigo, unspecified ear (principal); E87.29 Other acidosis; I50.20 Unspecified systolic (congestive) heart failure; E87.1 Hypo-osmolality and hyponatremia; K56.7 Ileus, unspecified; M54.50 Low back pain, unspecified; G89.29 Other chronic pain; E66.9 Obesity, unspecified; Z68.33 Body mass index [BMI] 33.0-33.9, adult; R74.01 Elevation of levels of liver transaminase levels; F10.10 Alcohol abuse, uncomplicated; R00.0 Tachycardia, unspecified; E87.6 Hypokalemia; K59.00 Constipation, unspecified; F41.9 Anxiety disorder, unspecified; F32.A Depression, unspecified; I25.10 Atherosclerotic heart disease of native coronary artery without angina pectoris; X58.XXXA Exposure to other specified factors, initial encounter; Z79.891 Long term (current) use of opiate analgesic; Z79.899 Other long term (current) drug therapy; D69.6 Thrombocytopenia, unspecified
CPT/HCPCS: 36415; 70450; 70496; 70498; 70551; 71045; 71046; 74018; 80053; 80061; 80069; 80307; 80320; 81001; 82306; 82607; 83036; 83605; 83735; 83880; 84100; 84132; 84443; 84484; 85025; 85610; 85730; 87811; 92610; 93005; 93306; 96372; 97162; 99285; A4649; J1644; J3360; J3475; J3480; J3490; J7030; J7120; J7121; Q9967; A9270; G0480

== ENCOUNTER 2025-01-31 14:43 | Emergency (ER) | payer OTHER, BC, SELFPAY ==
[2025-01-31 15:00] VITALS: BP 128/81; PULSE 85; RESP 16; TEMP 36.9; O2SAT 96; BMI 35.2
[2025-01-31] MEDS: DIPHTH,PERTUSS(ACELL),TET VAC 0.5 ML SYR- ADULT IMi (15:32)
[2025-01-31] MEDS: LIDOCAINE HCL 1% 20 ML VIAL INFL (15:33)
--- NOTE | 2025-01-31 15:50 | XR_ITS ---
Examination: CT brain head without contrast. 2-D sagittal coronal reconstructions Date and time of exam: January 31, 2025, 1628 hours INDICATIONS: Patient fell today with injury of the head, forehead trauma laceration head pain CTDI: vol (mGy): 59.1 DLP: (mGycm): 1227 Technique: Multiple CT axial sections of the brain have been obtained, 5 mm slice thickness. Contrast has not been administered. 2-D sagittal, coronal reconstructions have been obtained Low dose protocols were performed. One or more of the following dose reduction techniques were used; automated exposure control, adjustment of the mA and/or KV according to patient size, use of iterative reconstruction technique. Findings: No significant ventricular enlargement. 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 No mass effect or midline shift Basal cisterns are not remarkable. Fourth ventricle is midline. Cranial vault intact. 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
--- NOTE | 2025-01-31 15:54 | PD.EDWOUND ---
ED Wound/Laceration-RME/HPI General Chief Complaint: Wound/Laceration Stated Complaint: LAC L) EYE/EYEBROW, HEADACHE Time Seen by Provider: 01/31/25 14:55 Source: patient Arrival date/time: 01/31/25 14:43 54-year-old male with a history of hyperlipidemia, hypertension presents to the emergency room with a chief complaint of a laceration to his left eyebrow and a headache after a ground-level fall that occurred 2 hours ago Mode of arrival: ambulatory Limitations: no limitations Related Data Home Medications ?Medication ?Instructions ?Recorded ?Confirmed oxycodone-acetaminophen 10 mg-325 1 tab PO Q6H PRN pain 12/27/24 12/27/24 mg tablet Allergies Allergy/AdvReac Type Severity Reaction Status Date / Time No Known Allergies Allergy Verified 01/31/25 14:46 Review of Systems Review of Systems Systems Reviewed: All systems reviewed, normal except as documented Constitutional Constitutional: Reports system reviewed and no additional complaints, except as documented, Denies fatigue, Denies fever(s), Denies headache(s) and Denies weakness Eyes Eyes: Reports system reviewed and no additional complaints, except as documented, Denies blurry vision and Denies change in vision ENT Ears, Nose, Mouth, and Throat: Reports system reviewed and no additional complaints, except as documented, Denies otalgia, Denies headache(s), Denies nasal congestion, Denies throat swelling and Denies vertigo Cardiovascular Cardiovascular: Reports system reviewed and no additional complaints, except as documented, Denies chest pain, Denies dyspnea and Denies dyspnea on exertion Respiratory Respiratory: Reports system reviewed and no additional complaints, except as documented, Denies chest congestion, Denies cough, Denies dyspnea, Denies dyspnea on exertion and Denies wheezing Gastrointestinal Gastrointestinal: Reports system reviewed and no additional complaints, except as documented, Denies abdominal pain, Denies cramping, Denies nausea and Denies vomiting Genitourinary Genitourinary: Reports system reviewed and no additional complaints, except as documented, Denies dysuria and Denies hematuria Musculoskeletal Musculoskeletal: Reports system reviewed and no additional complaints, except as documented and Denies back pain Integumentary/Breasts Skin/Breast: Reports system reviewed and no additional complaints, except as documented and Reports wounds Neurologic Neurologic: Reports system reviewed and no additional complaints, except as documented, Denies confusion, Denies headache(s), Denies lack of coordination, Denies vertigo and Denies weakness Psychiatric Psychiatric: Reports system reviewed and no additional complaints, except as documented, Denies anxiety, Denies confusion, Denies depression, Denies paranoia, Denies suicidal ideation and Denies tactile hallucinations Endocrine Endocrine: Reports system reviewed and no additional complaints, except as documented and Denies fatigue Hematologic/Lymphatic Hematologic/Lymphatic: Reports system reviewed and no additional complaints, except as documented and Denies lymphadenopathy Allergic/Immunologic Allergic/Immunologic: Reports system reviewed and no additional complaints, except as documented, Denies throat swelling, Denies urticaria and Denies wheezing Past Medical History Past Medical History CARDIAC: Negative Cardiac Disorders, Myocardial Infarction, Cardiac Arrhythmia, Atrial Fibrillation, Angina, Heart Murmur, Coronary Artery Disease, Atherosclerotic Heart Disease, Peripheral Vascular Disease, Hypercholesterolemia, Aneurysm, Congestive Heart Failure, Congenital Heart Disease, Valvular Heart Disease, Rheumatic Fever, Cardiomyopathy, Edema, Pericarditis, Cellulitis, Deep Vein Thrombosis, Hypertension, Hypotension or Varicose Veins RESPIRATORY: Negative Chronic Obstructive Pulmonary Disease (COPD) GASTROINTESTINAL: Negative Gastrointestinal Disorders GENITOURINARY: Negative Genitourinary Disorders or Renal Disease REPRODUCTIVE: Negative Fibroids MUSCULOSKELETAL: Negative Musculoskeletal Disorders or Poliovirus ENDOCRINE: Negative Diabetes Mellitus Type 1 or Diabetes Mellitus Type 2 HEMATOLOGIC: Negative Blood Disorders or Clotting Problems OTHER HISTORY: Negative Autoimmune Disease, Anesthesia Reactions, Organ Transplant, MRSA, Clostridium Difficile or Cancer Family History FAMILY HISTORY: Negative Family Psychiatric Problems, Family Respiratory Disorders, Family Cardiac Disorders, Family Gastrointestinal Problems, Family Cancer, Family Surgery or Family Anesthesia Reaction Surgical History SURGICAL: Negative Cardiac Surgery, Pacemaker, Endocrine Surgery, Ear Surgery, Abdominal Surgery, Nephrectomy, Joint Replacement, Neurologic Surgery, Mastectomy, Vasectomy or Organ Transplant Social History SMOKING STATUS: Current some day smoker SECOND HAND EXPOSURE: Yes SUBSTANCE USE: does not use ED Exam General Limitations: Present no limitations General appearance: Present alert and in no apparent distress Head Head exam: Present atraumatic Expanded Head Exam Head exam physical: Present laceration; Absent abrasion, contusion, hematoma, raccoon eyes, Chand's sign, tenderness of temporal artery, CSF rhinorrhea or CSF otorrhea Head image:  1. 3.5 cm laceration to the left eyebrow Eye Eye exam: Present normal appearance, PERRL and EOMI ENT ENT exam: Present normal exam, normal oropharynx and mucous membranes moist Neck Neck exam: Present normal inspection, full ROM and trachea midline Chest Chest inspection: Present normal inspection and symmetric chest wall rise Respiratory Respiratory exam: Present normal lung sounds bilaterally Cardiovascular Cardiovascular exam: Present regular rate, normal rhythm and normal heart sounds Abdominal Exam Abdominal exam: Present soft and normal bowel sounds Extremities Exam Extremities exam: Present normal inspection and full ROM Back Exam Back exam: Present normal inspection and full ROM Neurological Exam Neurological exam: Present alert, oriented X3 and CN II-XII intact Psychiatric Psychiatric exam: Present normal affect and normal mood Skin Skin exam: Present warm, dry, intact and normal color Course Quality Measures none Orders Category Date Time Status Set Up Suture Tray STAT Care 01/31/25 15:03 Completed Wound Care NOW Care 01/31/25 15:[address] head/brain wo con Stat Exams 01/31/25 15:50 Completed Lidocaine 1% 20 ml [Xylocaine 1% 20 ML] Med 01/31/25 15:03 Discontinued 20 ml INFL X1 ONE TET,DIP/PERT AC (Adult)-Tdap [Boostrix Adult (Tdap) Med 01/31/25 15:03 Discontinued Vacc] 0.5 ml IMI .ONCE ONE Vital Signs Vital signs: Vital Signs Temperature 98.5 F 01/31/25 15:00 Pulse Rate 85 01/31/25 15:00 Respiratory Rate 16 01/31/25 15:00 Blood Pressure 128/81 01/31/25 15:00 Pulse Oximetry (%) 96 01/31/25 15:00 Oxygen Delivery Method Room Air 01/31/25 15:00 PROCEDURES: Laceration Laceration 1: Site: face Side (If applicable): left Size (cm): 3.5 Description: linear Depth: simple, single layer Local Anesthetic: lidocaine 1% Amount of anesthesia used (mL): 4 Pre-repair: irrigated extensively Skin layer closed with: nylon Suture size (cm): 4-0 Number of sutures: 5 Technique: simple, interrupted and horizontal mattress Wound / Laceration MDM Narrative [facility] Narrative:: 54-year-old male with a history of hyperlipidemia, hypertension presents to the emergency room with a chief complaint of a laceration to his left eyebrow and a headache after a ground-level fall that occurred 2 hours ago The laceration occured 2 hours ago. The mechanism of injury was a ground-level fall where he fell and hit his left eyebrow The laceration is a 3.5 cm laceration to the left eyebrow. Sensation is intact. There is full ROM. There is no exposed tendons. No foreign bodies. Lidocaine 1% was used for anesthesia. The wound was irrigated extensively with normal saline. 4 sutures were placed. A dressing was placed. There were no complications. Patient was educated to keep the area clean and dry for 24 hours, then clean daily with soap and water. Patient was educated to return for any signs of infection including swelling pain redness pus or fever and to make an appointment with primary care provider in 48 hours. Patient was educated to follow up with primary or return to emergency room for suture removal in the next 7-10 days. Patient data External records reviewed:: [facility] previous records Clinical information provided by:: patient Social determinants that could affect healthcare access:: none Patient has the following chronic illnesses:: No chronic illness How is presenting disease/condition affected by chronic disease/condition?: no chronic disease Evaluation data The following diagnostics were reviewed and interpreted by me:: lab results and radiology exam(s) Lab and/or radiology exams considered but not ordered:: Labs and radiology exams considered and ordered Interpretation Summary: CT head and brain-Findings: No significant ventricular enlargement. 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 No mass effect or midline shift Basal cisterns are not remarkable. Fourth ventricle is midline. Cranial vault intact. 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, clinical correlation advised and follow-up recommended accordingly Medications / Prescriptions Medications or Prescriptions considered but not ordered:: No medication given Medication administrations:: Medication Administration History Discontinued Medications Diphtheria/Tetanus/Acell Pertussis (Diphth,Pertuss(Acell),Tet Vac 0.5 Ml Syr- Adult) 0.5 ml IMi .ONCE ONE Stop: 01/31/25 15:04 Last Admin: 01/31/25 15:32 Dose: 0.5 ml Documented By: [facility] Lidocaine HCl (Lidocaine Hcl 1% 20 Ml Vial) 20 ml INFL X1 ONE Stop: 01/31/25 15:04 Last Admin: 01/31/25 15:33 Dose: 20 ml Documented By: [facility] Comments: USED BY PROVIDER No medication given Consultations Consultation(s) initiated? (list below): No Diagnosis Wound Differential Diagnosis: laceration, abscess and abrasion Most likely diagnosis given after review of the tests above:: Laceration Admission Indicated Admission indicated?: not indicated Admission Request Was there a request for admission?: No Disposition Plan Disposition Plan: Discharge Discharge Attestation Discharge Attestation: The patient and all family members were given an opportunity to ask questions and understood the discharge instructions. Discharge instructions specifically effects, indications for sooner follow up or return to the emergency department, and the expected course of current diagnosis. Patient condition: Stable Discharge Plan Plan Patient Disposition: HOME (Self Care) Discharge Disposition comment: Stable Prescriptions/Referrals Prescriptions/Med Rec: No Action oxycodone-acetaminophen 10-325 mg tablet 1 tab PO Q6H PRN (Reason: pain) Referrals: No Primary/Family,Physician [Primary Care Provider] - In 1 week Problem List Clinical Impression: Laceration Patient/Caregiver Discharge Instructions Additional Instructions: Please follow-up with your primary care provider in the next 24 to 48 hours Please keep the area clean and dry for the next 24 hours. Afterwards you can clean it with soap and water. Pat dry. Please do not remove the sutures on your own. You can return to the emergency room in 7 to 10 days or follow-up with your primary care provider for suture removal. When possible elevate the extremity/area as this can reduce swelling. For any evidence of worsening signs or symptoms return to the emergency room immediately Print Language: Spanish Stand Alone Forms: [employer] Award Info., Work/School Release, Patient Portal Info Letter PA/CELSO Supervising Physician PA/CELSO Supervising Physician: Dr. Kim
== END 2025-01-31 19:28 | disposition home or self-care (01) ==
PROVIDERS: Emergency Provider Family Medicine; PCP Internal Medicine
DX: S01.112A Laceration without foreign body of left eyelid and periocular area, initial encounter (principal); E78.5 Hyperlipidemia, unspecified; I10 Essential (primary) hypertension; W18.30XA Fall on same level, unspecified, initial encounter
CPT/HCPCS: 12011; 70450; 90715; 99284; J3490

== ENCOUNTER 2025-02-14 10:40 | Emergency (ER) | payer OTHER, BC, SELFPAY ==
[2025-02-14 10:40] VITALS: BMI 33.5
[2025-02-14 11:02] VITALS: BP 134/78; PULSE 89; RESP 18; TEMP 37; O2SAT 100
--- NOTE | 2025-02-14 11:34 | EDNOTE_ITS ---
ED Wound/Laceration-RME/HPI General Chief Complaint: Wound Recheck / Suture Removal Stated Complaint: STITCH REMOVAL Time Seen by Provider: 02/14/25 10:53 Source: patient Arrival date/time: 02/14/25 10:40 54-year-old male with no known medical history presents to the emergency room with a chief complaint of needing his sutures removed from his left eyebrow Mode of arrival: ambulatory Limitations: no limitations Related Data Home Medications ?Medication ?Instructions ?Recorded ?Confirmed oxycodone-acetaminophen 10 mg-325 1 tab PO Q6H PRN timo n 12/27/24 12/27/24 mg tablet Allergies Allergy/AdvReac Type Severity Reaction Status Date / Time No Known Allergies Allergy Verified 02/14/25 10:42 Review of Systems Review of Systems Systems Reviewed: All systems reviewed, normal except as documented Constitutional Constitutional: Reports system reviewed and no additional complaints, except as documented, Denies fatigue, Denies fever(s), Denies headache(s) and Denies weakness Eyes Eyes: Reports system reviewed and no additional complaints, except as documented, Denies blurry vision and Denies change in vision ENT Ears, Nose, Mouth, and Throat: Reports system reviewed and no additional complaints, except as documented, Denies otalgia, Denies headache(s), Denies nasal congestion, Denies throat swelling and Denies vertigo Cardiovascular Cardiovascular: Reports system reviewed and no additional complaints, except as documented, Denies chest pain, Denies dyspnea and Denies dyspnea on exertion Respiratory Respiratory: Reports system reviewed and no additional complaints, except as documented, Denies chest congestion, Denies cough, Denies dyspnea, Denies dyspnea on exertion and Denies wheezing Gastrointestinal Gastrointestinal: Reports system reviewed and no additional complaints, except as documented, Denies abdominal pain, Denies cramping, Denies nausea and Denies vomiting Genitourinary Genitourinary: Reports system reviewed and no additional complaints, except as documented, Denies dysuria and Denies hematuria Musculoskeletal Musculoskeletal: Reports system reviewed and no additional complaints, except as documented and Denies back pain Integumentary/Breasts Skin/Breast: Reports system reviewed and no additional complaints, except as documented and Denies wounds Neurologic Neurologic: Reports system reviewed and no additional complaints, except as documented, Denies confusion, Denies headache(s), Denies lack of coordination, Denies vertigo and Denies weakness Psychiatric Psychiatric: Reports system reviewed and no additional complaints, except as documented, Denies anxiety, Denies confusion, Denies depression, Denies paranoia, Denies suicidal ideation and Denies tactile hallucinations Endocrine Endocrine: Reports system reviewed and no additional complaints, except as documented and Denies fatigue Hematologic/Lymphatic Hematologic/Lymphatic: Reports system reviewed and no additional complaints, except as documented and Denies lymphadenopathy Allergic/Immunologic Allergic/Immunologic: Reports system reviewed and no additional complaints, except as documented, Denies throat swelling, Denies urticaria and Denies wheezing Past Medical History Past Medical History CARDIAC: Negative Cardiac Disorders, Myocardial Infarction, Cardiac Arrhythmia, Atrial Fibrillation, Angina, Heart Murmur, Coronary Artery Disease, Atherosclerotic Heart Disease, Peripheral Vascular Disease, Hypercholesterolemia, Aneurysm, Congestive Heart Failure, Congenital Heart Disease, Valvular Heart Disease, Rheumatic Fever, Cardiomyopathy, Edema, Pericarditis, Cellulitis, Deep Vein Thrombosis, Hypertension, Hypotension or Varicose Veins RESPIRATORY: Negative Chronic Obstructive Pulmonary Disease (COPD) GASTROINTESTINAL: Negative Gastrointestinal Disorders GENITOURINARY: Negative Genitourinary Disorders or Renal Disease REPRODUCTIVE: Negative Fibroids MUSCULOSKELETAL: Negative Musculoskeletal Disorders or Poliovirus ENDOCRINE: Negative Diabetes Mellitus Type 1 or Diabetes Mellitus Type 2 HEMATOLOGIC: Negative Blood Disorders or Clotting Problems OTHER HISTORY: Negative Autoimmune Disease, Anesthesia Reactions, Organ Transplant, MRSA, Clostridium Difficile or Cancer Family History FAMILY HISTORY: Negative Family Psychiatric Problems, Family Respiratory Disorders, Family Cardiac Disorders, Family Gastrointestinal Problems, Family Cancer, Family Surgery or Family Anesthesia Reaction Surgical History SURGICAL: Negative Cardiac Surgery, Pacemaker, Endocrine Surgery, Ear Surgery, Abdominal Surgery, Nephrectomy, Joint Replacement, Neurologic Surgery, Mastectomy, Vasectomy or Organ Transplant Social History SMOKING STATUS: Current some day smoker SECOND HAND EXPOSURE: Yes SUBSTANCE USE: does not use ED Exam General Limitations: Present no limitations General appearance: Present alert and in no apparent distress Head Head exam: Present atraumatic Eye Eye exam: Present normal appearance, PERRL and EOMI ENT ENT exam: Present normal exam, normal oropharynx and mucous membranes moist Neck Neck exam: Present normal inspection, full ROM and trachea midline Chest Chest inspection: Present normal inspection and symmetric chest wall rise Respiratory Respiratory exam: Present normal lung sounds bilaterally Cardiovascular Cardiovascular exam: Present regular rate, normal rhythm and normal heart sounds Abdominal Exam Abdominal exam: Present soft and normal bowel sounds Extremities Exam Extremities exam: Present normal inspection and full ROM Back Exam Back exam: Present normal inspection and full ROM Neurological Exam Neurological exam: Present alert, oriented X3 and CN II-XII intact Psychiatric Psychiatric exam: Present normal affect and normal mood Skin Skin exam: Present warm, dry, intact and normal color Course Quality Measures none Vital Signs Vital signs: Vital Signs Temperature 98.6 F 02/14/25 11:02 Pulse Rate 89 02/14/25 11:02 Respiratory Rate 18 02/14/25 11:02 Blood Pressure 134/78 H 02/14/25 11:02 Pulse Oximetry (%) 100 02/14/25 11:02 Oxygen Delivery Method Room Air 02/14/25 11:02 Wound / Laceration MDM Narrative MDM Narrative:: 54-year-old male with no known medical history presents to the emergency room with a chief complaint of needing his sutures removed from his left eyebrow Patient is hemodynamically stable and in no apparent distress The patient's sutures in his left eyebrow were removed with no complications Patient was discharged and educated to follow-up with primary care provider in the next 24 to 48 hours and return to the emergency room for any evidence of worsening signs or symptoms Patient data External records reviewed:: [facility] previous records Clinical information provided by:: patient Social determinants that could affect healthcare access:: none Patient has the following chronic illnesses:: No chronic illness How is presenting disease/condition affected by chronic disease/condition?: no chronic disease Evaluation data The following diagnostics were reviewed and interpreted by me:: lab results and radiology exam(s) Lab and/or radiology exams considered but not ordered:: Labs and radiology exams considered and ordered Interpretation Summary: N/A Medications / Prescriptions Medications or Prescriptions considered but not ordered:: No medication given Medication administrations:: No medication given Consultations Consultation(s) initiated? (list below): No Diagnosis Wound Differential Diagnosis: laceration, abscess and other (Suture removal) Most likely diagnosis given after review of the tests above:: Suture removal Admission Indicated Admission indicated?: not indicated Admission Request Was there a request for admission?: No Disposition Plan Disposition Plan: Discharge Discharge Attestation Discharge Attestation: The patient and all family members were given an opportunity to ask questions and understood the discharge instructions. Discharge instructions specifically effects, indications for sooner follow up or return to the emergency department, and the expected course of current diagnosis. Patient condition: Stable Discharge Plan Plan Patient Disposition: HOME (Self Care) Discharge Disposition comment: Stable Prescriptions/Referrals Prescriptions/Med Rec: No Action oxycodone-acetaminophen 10-325 mg tablet 1 tab PO Q6H PRN (Reason: pain) Problem List Clinical Impression: Encounter for removal of sutures Patient/Caregiver Discharge Instructions Education Materials: ED Stitches/Staple Removal No ... Additional Instructions: Please follow-up with your primary care provider in the next 24 to 48 hours For any evidence of worsening signs or symptoms return to the emergency room immediately Print Language: [place] Stand Alone Forms: Cherise Award Info., Work/School Release, Patient Portal Info Letter
== END 2025-02-14 11:34 | disposition home or self-care (01) ==
LOC: SERX 11:19
PROVIDERS: Emergency Provider Family Medicine; PCP Family Medicine
DX: S01.112D Laceration without foreign body of left eyelid and periocular area, subsequent encounter (principal); X58.XXXD Exposure to other specified factors, subsequent encounter
CPT/HCPCS: 99281